=== PATIENT | male | born 1955 | race Caucasian/White ===

== ENCOUNTER 2018-05-05 02:34 | Inpatient (IN) | payer MEDICARE, OTHER ==
[2018-05-05] VITALS (8 sets, daily range): BP systolic 131–141; BP diastolic 69–85; PULSE 80–89; RESP 18–20; Ht 170.2 cm; Wt 90.8 kg
[~2018-05-05] VITALS: Ht 170.2 cm; Wt 90.8 kg
[2018-05-05] MEDS ORDERED: SOD CHLORIDE 0.9% 1,000 ML IV STA (02:40)
[2018-05-05] MEDS ORDERED: TAMS0.4C2 PO (04:36)
[2018-05-05] MEDS ORDERED: ROSU20TA PO (04:36)
[2018-05-05] MEDS ORDERED: OMEP20CA16 PO (04:36)
[2018-05-05] MEDS ORDERED: CHLO25TA18 PO (04:36)
[2018-05-05] MEDS ORDERED: CALC-183 PO (04:36)
[2018-05-05] MEDS ORDERED: CAPE500T13 PO (04:36)
[2018-05-05] MEDS ORDERED: AVAS400I IV (04:36)
[2018-05-05] MEDS ORDERED: PYRI100T2 PO (04:36)
[2018-05-05] MEDS ORDERED: BIOT10005 PO (04:36)
[2018-05-05] MEDS ORDERED: CHOL500010 PO (04:36)
[2018-05-05] MEDS ORDERED: METO-448 PO (04:36)
[2018-05-05] MEDS ORDERED: IRIN300V IV (04:36)
[2018-05-05] MEDS ORDERED: HYDR25TA6 PO (04:36)
[2018-05-05] MEDS ORDERED: LEVO50TA7 PO (04:36)
--- NOTE | 2018-05-05 05:20 | ERD ---
ER Documentation Chief Complaint Chief Complaint BIB [id number],from home,gen severe weakness,hx colon CA stage 4 on chemo HPI This is a 62-year-old male brought in by rescue from home with complaints of generalized lower extremity and upper extremity weakness. Denies focal weakness. Patient is a stage IV colon cancer patient currently on chemotherapy. He states that he earlier today he got up to go to the restroom he suddenly fell he was unable to get up. He denies any bowel or bladder incontinence. Denies any other current issues. Patient is on chemo from what it seems like for palliative reasons only ROS All systems reviewed and are negative except as per history of present illness. Medications Home Meds Reported Medications Levothyroxine Sodium* (Levothyroxine Sodium*) 50 Mcg Tablet, 50 MCG PO BEFORE BREAKFAST, #30 TAB 05/05/18 Biotin (Biotin) 10,000 Mcg Capsule, 92264 MCG PO DAILY, CAP 05/05/18 Calcium Carb/D3/Magnesium/Zinc (Avksigv-Zis-Kzbe-Vit D Tablet) 1 Each Tablet, 1 EACH PO DAILY, TAB 05/05/18 Rosuvastatin Calcium* (Crestor*) 20 Mg Tablet, 20 MG PO QHS, #30 TAB 05/05/18 Omeprazole* (Omeprazole*) 20 Mg Capsule.dr, 20 MG PO DAILY, #30 CAP 05/05/18 Cholecalciferol (Vitamin D3) 5,000 Unit Tablet, 5000 UNIT PO DAILY, TAB 05/05/18 Hydrochlorothiazide* (Hydrochlorothiazide*) 25 Mg Tab, 25 MG PO DAILY, #30 TAB 05/05/18 Pyridoxine Hcl* (Vitamin B-6*) 100 Mg Tablet, 100 MG PO DAILY, TAB 05/05/18 Metoprolol Tartrate* (Lopressor*) 25 Mg Tab, 25 MG PO BID, #60 TAB 05/05/18 Capecitabine (Capecitabine) 500 Mg Tablet, 500 MG PO DAILY, TAB TAKE 3 TABLETS (1500MG) BY MOUTH IN THE MORNIING AND 2 TABLETS (1000MG) IN THE EVENING DAILY FROM FRIDAY TO FRIDAY. 05/05/18 Irinotecan Hcl (CAMPTOSAR) Unknown Strength Vial, IV, VIAL 05/05/18 Bevacizumab* (Avastin*) 25 Mg/Ml Soln, 400 MG IV, EA 05/05/18 Tamsulosin Hcl* (Tamsulosin Hcl*) 0.4 Mg Cap.er.24h, 0.4 MG PO HS, CAP 05/05/18 Chlorpromazine Hcl* (Chlorpromazine Hcl*) 25 Mg Tablet, 25 MG PO TID, TAB 05/05/18 Allergies Allergies: Coded Allergies: No Known Allergy (Unverified , 05/05/18) PMhx/Soc History of Surgery: Yes (HERNIA 2014, COLON 2015, BRAIN TUMOR 2015) Anesthesia Reaction: No Hx Neurological Disorder: No Hx Respiratory Disorders: No Hx Cardiac Disorders: Yes (HTN, HYPERLIPIDEMIA ) Hx Psychiatric Problems: No Hx Miscellaneous Medical Probl: Yes (COLON CANCER, GERD, HYPOTHYROID, ENLARGED PROSTATE ) Hx Alcohol Use: No Hx Substance Use: No Hx Tobacco Use: No Smoking Status: Never smoker Physical Exam Vitals Vital Signs Date Temp Pulse Resp B/P (MAP) Pulse Ox O2 O2 Flow FiO2 Time Delivery Rate 05/05/18 99.9 81 14 133/82 100 Room Air 03:52 (99) 05/05/18 98.2 89 18 124/76 97 02:38 (92) Physical Exam Const: No acute distress Head: Atraumatic Eyes: Normal Conjunctiva ENT: Normal External Ears, Nose and Mouth. Neck: Full range of motion. No meningismus. Resp: Clear to auscultation bilaterally Cardio: Regular rate and rhythm, no murmurs Abd: Soft, non tender, non distended. Normal bowel sounds Skin: No petechiae or rashes Back: No midline or flank tenderness Ext: No cyanosis, or edema Neur: Awake and alert Psych: Normal Mood and Affect Result Diagram: 05/05/18 0316 05/05/18 0316 Results 24 hrs Laboratory Tests Test 05/05/18 03:16 White Blood Count 4.6 10^3/ul Red Blood Count 3.84 10^6/ul Hemoglobin 12.9 g/dl Hematocrit 36.3 % Mean Corpuscular Volume 94.5 fl Mean Corpuscular Hemoglobin 33.6 pg Mean Corpuscular Hemoglobin Concent 35.5 g/dl Red Cell Distribution Width 15.8 % Platelet Count 63 10^3/UL Mean Platelet Volume 10.7 fl Immature Granulocytes % 1.100 % Neutrophils % 87.7 % Lymphocytes % 6.8 % Monocytes % 4.4 % Eosinophils % 0.0 % Basophils % 0.0 % Nucleated Red Blood Cells % 0.0 /100WBC Immature Granulocytes # 0.050 10^3/ul Neutrophils # 4.0 10^3/ul Lymphocytes # 0.3 10^3/ul Monocytes # 0.2 10^3/ul Eosinophils # 0.0 10^3/ul Basophils # 0.0 10^3/ul Nucleated Red Blood Cells # 0.0 10^3/ul Prothrombin Time 14.0 Sec Prothrombin Time Ratio 1.1 INR International Normalized Ratio 1.07 Activated Partial Thromboplast Time 24.5 Sec Sodium Level 133 mmol/L Potassium Level 4.9 mmol/L Chloride Level 97 mmol/L Carbon Dioxide Level 23 mmol/L Anion Gap 13 Blood Urea Nitrogen 20 mg/dl Creatinine 1.01 mg/dl Est Glomerular Filtrat Rate mL/min > 60 mL/min Glucose Level 128 mg/dl Calcium Level 9.1 mg/dl Troponin I < 0.012 ng/ml Current Medications Medications Dose Sig/Jeovany Start Time Status Last (Trade) Ordered Route PRN Stop Time Admin Dose Reason Admin Sodium 1,000 ml @ Q1H STAT 05/05/18 DC 05/05/18 Chloride 1,000 mls/hr IV 02:40 05/05/18 03:54 03:39 Procedures/MDM EKG: Rate/Rhythm: [Normal Sinus Rhythm] QRS, ST, T-waves: [No changes consistent w/ acute ischemia] Impression: [No evidence of ischemia or arrhythmia] Chest X-ray 1V Interpreted by me: Soft Tissue: No acute abnormalities Bones: No acute abnormalities Mediastinum/Cardiac Silhouette/Lungs: [No acute abnormalities] Medical decision makin-year-old male with generalized weakness. Given his debility, patient will be admitted to the hospitalist group for further evaluation and management. Departure Diagnosis: Primary Impression: Acute weakness Condition: Stable ROSS NOEL May 05, 2018 05:20
[2018-05-05] MEDS: SOD CHLORIDE 0.9% 1,000 ML IV SCH ×2 (05:38→16:44)
[2018-05-05] MEDS ORDERED: DOCUSATE SODIUM 100 MG CAP PO PRN (06:00)
[2018-05-05] MEDS ORDERED: NACL 0.9% 3 ML SYG IV SCH (06:00)
[2018-05-05] MEDS ORDERED: BISACODYL (EC) 5 MG TAB PO PRN (06:00)
[2018-05-05] MEDS: ACETAMINOPHEN 325 MG TAB PO PRN ×3 (06:21→21:42)
[2018-05-05] MEDS: PANTOPRAZOLE (EC) 40 MG TAB PO SCH (06:21)
--- NOTE | 2018-05-05 06:33 | HP ---
Date/Time of Note Date/Time of Note DATE: 05/05/18 TIME: 06:24 Assessment/Plan VTE Prophylaxis SCD applied (from Nsg): Yes Pharmacological prophylaxis: NA/contraindicated Pharm contraindication: thrombocytopenia Lines/Catheters IV Catheter Type (from Nrsg): Saline Lock Assessment/Plan Hospital Course This is a 62-year-old male being admitted to the telemetry floor for: #1 Sirs syndrome: Source unknown at the current time possibly secondary to pneumonia versus UTI versus other. Chest x-ray showed questionable interstitial prominence. Will check stat blood cultures x2, urinalysis and urine culture. Will order lactic acid level. Start patient on vancomycin and Zosyn (in immunocompromised patient) after cultures. Patient denies any cough. He does report that it has been difficult for him to urinate today. #2 left-sided facial droop with weakness: Rule out CVA versus infection versus medication effect. CT of the head does not show any acute abnormalities aside from old infarct and encephalomalacia. Patient does report on and off headaches. Will check an MRI of the brain to further evaluate. Treatment for possible underlying infection is already been initiated as per #1. As the neurological symptoms started greater than 48 hours ago no need for any permissive hypertension at the current time. #3 colon cancer stage IV with metastases to liver and brain: Patient has outpatient oncologist [facility]. Dr. Singh. Currently on a Avastin capecitabine and irinotecan. Will hold current treatment at the current time. Will consult hematology for further guidance. #4 hypertension: We will hold patient home blood pressure medication at the c urrent time initiate as indicated #5 abnormal chest x-ray: This could be pneumonia versus fluid. Will check an echocardiogram as well to assess heart morphology #6 hyperlipidemia: Resume statin #7 BPH: Continue Flomax #8 thrombocytopenia: Secondary likely to underlying cancer. SCDs at the current time will hold off on any anticoagulation. #9 hypothyroidism: We will check TSH, continue levothyroxine #10 DVT GI prophylaxis: SCDs, no GI prophylaxis indicated #11 CODE STATUS: Patient currently a full code. I did discuss CODE STATUS with the family and they will discuss this further with the patient. I did reiterate to them that being a DNR/DNI would be appropriate, the family will decide on this. Will consult Dr. Greenwood. Further treatment strategy will be implemented as per the clinical course. Result Diagram: 05/05/18 0316 05/05/18 0316 Results 24hrs Laboratory Tests Test 05/05/18 03:16 White Blood Count 4.6 L Red Blood Count 3.84 L Hemoglobin 12.9 L Hematocrit 36.3 L Mean Corpuscular Volume 94.5 Mean Corpuscular Hemoglobin 33.6 H Mean Corpuscular Hemoglobin Concent 35.5 Red Cell Distribution Width 15.8 H Platelet Count 63 L Mean Platelet Volume 10.7 H Immature Granulocytes % 1.100 H Neutrophils % 87.7 H Lymphocytes % 6.8 L Monocytes % 4.4 Eosinophils % 0.0 Basophils % 0.0 Nucleated Red Blood Cells % 0.0 Immature Granulocytes # 0.050 H Neutrophils # 4.0 Lymphocytes # 0.3 L Monocytes # 0.2 L Eosinophils # 0.0 Basophils # 0.0 Nucleated Red Blood Cells # 0.0 Prothrombin Time 14.0 Prothrombin Time Ratio 1.1 INR International Normalized Ratio 1.07 Activated Partial Thromboplast Time 24.5 Sodium Level 133 L Potassium Level 4.9 Chloride Level 97 Carbon Dioxide Level 23 Anion Gap 13 Blood Urea Nitrogen 20 Creatinine 1.01 Est Glomerular Filtrat Rate mL/min > 60 Glucose Level 128 Calcium Level 9.1 Troponin I < 0.012 HPI/ROS Admit Date/Time Admit Date/Time Hx of Present Illness Chief complaint: Unsteady gait, weakness This is a 62-year-old male with stage IV colon cancer with a history of metastasis to the liver and the brain who presents to [facility] via ambulance with complaints of weakness times 3 days. Patient is accompanied by his sister as well as his niece. As per the family they state that the patient was noted on Friday at approximately 2030 to be limping at home while he was ambulating. He also was complaining of a headache. Then today the patient was noted to be on the floor at home. He denied falling down or hitting his head according to the family. Family though was concerned so they called 911. Patient has been receiving chemotherapy for his colon cancer [facility] through his oncologist Dr. Dunn. He is currently on capecitabine, Avastin and Irontecan. During my examination of the patient he reported feeling hot a temperature was checked during my examination temperature was rechecked and a temperature of 103 was noted. Allergies: NKDA Medications: See MAY . ROS Const: As per HPI Eyes : No pain discharge or redness or change in visual acuity ENT: No pain, sore throat, congestion, congestion, dysphagia or discharge Respiratory: No shortness of breath, cough, sputum, wheezing, or pleuritic pain Cardiovascular: No chest pain, palpitation, PND, or edema GI : no change in appetite, abdominal pain, nausea, vomiting, diarrhea, constipation, or change in the color his stool Genitourinary: No dysuria, hematuria, flank pain , discharge or CVA tenderness Musculoskeletal: No joint pain, back pain, neck pain, restricted range of motion in neck or joints Skin: No rash, bruising or hives Neuro: As per HPI Endocrine: No polyuria, polydipsia, temperature intolerance Psych: No hallucination, depression, anxiety or suicidal ideation PMH/Family/Social Past Medical History Stage IV colon cancer with metastases to the brain and the liver, hypertension, hyperlipidemia, BPH, hypothyroidism Medications Current Medications Chlorpromazine (Thorazine) 25 mg TID PO ; Start 05/05/18 at 09:00 Levothyroxine Sodium (Synthroid) 50 mcg BEFORE BREAKFAST PO ; Start 05/05/18 at 07:00 Pyridoxine HCl (Vitamin B6) 100 mg DAILY PO ; Start 05/05/18 at 09:00 Calcium/Vitamin D (Oyster Shell/ Vit-D (500/200)) 1 tab DAILY PO ; Start 05/05/18 at 09:00 Pantoprazole (Protonix Tab) 40 mg DAILY@06 PO ; Start 05/05/18 at 06:21 Atorvastatin Calcium (Lipitor) 80 mg DAILY@21 PO ; Start 05/05/18 at 21:00 Sodium Chloride 1,000 ml @ 75 mls/hr [id number] IV ; Start 05/05/18 at 05:38 IV Flush (NS 3 ml) 3 ml PER PROTOCOL IV ; Start 05/05/18 at 06:00 Ondansetron HCl (Zofran Inj) 4 mg Q6H PRN IV NAUSEA/VOMITING; Start 05/05/18 at 06:00 Acetaminophen (Tylenol Tab) 650 mg Q6H PRN PO .PAIN 1-3 OR TEMP Last admini stered on 05/05/18at 06:21; Admin Dose 650 MG; Start 05/05/18 at 06:00 Docusate Sodium (Colace) 100 mg Q12H PRN PO .CONSTIPATION; Start 05/05/18 at 06:00 Bisacodyl (Dulcolax) 5 mg DAILY PRN PO .CONSTIPATION; Start 05/05/18 at 06:00 Tamsulosin HCl (Flomax) 0.4 mg HS PO ; Start 05/05/18 at 21:00 Coded Allergies: No Known Allergy (Unverified , 05/05/18) Past Surgical History Left craniectomy, colon surgery, hernia surgery, left chest Port-A-Cath Family History Significant Family History: cancer (Sister breast cancer, mother colon cancer) Social History Social drinker in the past Smoking Status: Never smoker Drug Use: none Exam/Review of Systems Vital Signs Vitals Vital Signs Date Temp Pulse Resp B/P (MAP) Pulse Ox O2 O2 Flow FiO2 Time Delivery Rate 05/05/18 103.0 06:21 05/05/18 84 16 138/76 100 Room Air 06:17 (96) Exam Exam General: Patient is a pleasant male currently lying in bed he does not appear to be in any acute distress, he does appear to be lethargic with HEENT: Atraumatic, normocephalic. The pupils are equal, round and reactive. Extraocular motor are intact Neck: Supple with full range of motion. No rigidity or meningismus Chest: Left chest Port-A-Cath Lungs: Clear to auscultation bilaterally no crackles rales or wheezing Heart: Normal S1-S2, Regular rhythm and rate. No murmur, S3, or S4 Abdomen: Soft , nontender, nondistended , bowel sounds are present. No guarding no rebound tenderness , No masses or organomegaly. No costovertebral temporal angle mass Extremities: Normal to inspection, no edema no cyanosis Neurologic: Normal mental status, speech normal, left-sided facial droop and eyelid drooping, strength 4 out of 5 in bilateral upper and lower extremities. Gait not assessed secondary to weakness Additional Comments PROCEDURE: CT Brain without contrast. CLINICAL INDICATION: Headache. TECHNIQUE: CT scan of the brain was performed on a multidetector high- resolution CT scan. Axial imaging was obtained of the brain without contrast administration. Coronal and sagittal reformatted images were obtained from the axial source images. Standard CT scan of the head without contrast protocols were performed. The total exam CTDI equals 39.3 mGy and the total exam DLP equals 1427.02 mGy- cm. One or more of the following dose reduction techniques were used: - Automated exposure control. - Adjustment of the mA and/or kV according to patient size. Use of iterative reconstruction technique. Dicom images are available COMPARISON: None FINDINGS: Motion artifact degrading optimal evaluation. Status post left occipital craniotomy with fixation that appears unremarkable. No acute osseous findings. Mild mucosal thickening left maxillary sinus. Remainder of the visualized paranasal sinuses are unremarkable. No air-fluid levels within the paranasal sinuses. Mastoids unremarkable. 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 The ventricular system and peripheral CSF spaces are proportionate prominent consistent with mild generalized cerebral volume loss. Moderate periventricular deep white matter changes consistent with chronic microvascular ischemic disease. No evidence of intracranial masses hemorrhages or midline shift. The remaining sharma-white matter differentiation is unremarkable. IMPRESSION: 1. Motion artifact degrading optimal evaluation. 2. Status post left occipital craniotomy with unremarkable fixation. 3. 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 4. Mild generalized cerebral volume loss and moderate nonspecific chronic microvascular ischemic disease. RPTAT:AAJJ Physician Jada Date Time Electronically viewed and signed by Physician Jada on 05/05/2018 04:02 BM/ CC: ROSS NOEL [id number] PROCEDURE: Single view chest. CLINICAL INDICATION: Headache TECHNIQUE: Single view of the chest was obtained COMPARISON: None FINDINGS: Left-sided port with tip positioned at mid SVC. Mild interstitial prominence without confluent air space consolidation or focal infiltrate. There is no evidence of an effusion. Cardiac silhouette and mediastinal contours are unremarkable. Minor degenerative spurring throughout the thoracic spine and remote fracture deformity of the left clavicle. IMPRESSION: Mild interstitial prominence compatible with fluid overload or trace edema. RPTAT: HJBB Physician Car Date Time Electronically viewed and signed by Kenneth Ashley Physician on 05/05/2018 03:30 xB/ CC: ROSS NOEL [id number] MARIS BECK May 05, 2018 06:33
[2018-05-05] MEDS ORDERED: VANCOMYCIN IV PER PHARMACY XX SCH (07:00)
[2018-05-05] MEDS: PIPER-TAZO 3.375 GM IV (PMX) 100 ML IVPB SCH ×3 (08:00→17:29)
[2018-05-05] MEDS ORDERED: BIOTIN 10000 MCG PO SCH (09:00)
[2018-05-05] MEDS ORDERED: VANCOMYCIN HCL 1.75 GM in SOD CHLORIDE 0.9% 500 ML IVPB SCH (09:00)
[2018-05-05] MEDS ORDERED: HEPARIN 5,000 UNIT/1 ML VIAL SC SCH (09:00)
[2018-05-05] MEDS: LEVOTHYROXINE 50 MCG TAB PO SCH (10:02)
[2018-05-05] MEDS: CALCIUM/VITAMIN D (500/200) TAB PO SCH (10:02)
[2018-05-05] MEDS: CHLORPROMAZINE 25 MG TAB PO SCH ×3 (11:20→21:43)
[2018-05-05] MEDS: PYRIDOXINE 50 MG TAB PO SCH (11:20)
--- NOTE | 2018-05-05 12:33 | CONDCODE ---
Medicare Criteria-> INP to OBS Patient still in hospital: Yes SI/IS Criteria met: Yes Attending MD agrees w/change: Yes Order entered in Pt. record: Yes Pt. does not meet Inp Criteria: Yes Medicare Inp->Obs Criteria met: Yes UR Phys Advisor eSign required: Yes I personally scribed for TAHIR MCBRIDE (DENI) on 05/05/18 at 12:33. Electronically submitted by Basilia Tai ([facility] TAHIR MCBRIDE May 05, 2018 12:33
--- NOTE | 2018-05-05 12:33 | CONDCODE ---
Medicare Criteria-> INP to OBS Patient still in hospital: Yes SI/IS Criteria met: Yes Attending MD agrees w/change: Yes Order entered in Pt. record: Yes Pt. does not meet Inp Criteria: Yes Medicare Inp->Obs Criteria met: Yes UR Phys Advisor eSign required: Yes I personally scribed for TAHIR MCBRIDE (DENI) on 05/05/18 at 12:33. Electronically submitted by Basilia Tai ([facility] TAHIR MCBRIDE May 05, 2018 12:33
[2018-05-05] MEDS ORDERED: SOD CHLORIDE 0.9% IV ONE (13:30)
--- NOTE | 2018-05-05 14:38 | CONS ---
Assessment/Plan Assessment/Plan Hospital Course (Demo Recall) #STAGE IV Colon Cancer -pt has known mets to brain, liver and lung mets -pt is currently on Xeliri and Avastin and per his oncology notes his disease is stable when PET CT was last checked in Mar 2018 -once patient is discharged, he should get a follow up scan to see if he is still responding to the current therapy -if he has progressed, his primary oncologist may consider Lonsurf vs Stivarga #confusion -pt getting brain MRI now -if he has proven progressive brain mets, will need to see if he is a candidate for any more brain radiation -as stated in HPI is is s/o surgical resection and brain radiation from 2016 #Sepsis -continue IV vancomycin and Zosyn -blood cultures pending Consultation Date/Type/Reason Admit Date/Time 05/05/18 Date of Consultation: May 05, 2018 Type of Consult oncology Reason for Consultation stage IV colon cancer Requesting Provider: MARIS BECK Date/Time of Note DATE: 05/05/18 TIME: 14:30 Hx of Present Illness 62 yo male who was initially diagnosed STAGE IV colon cancer in 2015 which per records involves pulmonary nodules, liver lesions and brain mets. 10/2015 pt underwent neurosurgical resection of brain mass followed by WBXRT 10/2015 pt had resection of primary tumor to prevent further obstruction 05/2015 pt started folfox + Avastin chemotherapy and is currently on Xeliri + Avastin. 03/[address] revealed stable disease 04/30/18 received cycle 3 of Xeliri + Avastin PT now presents to [facility] with 3 days of weakness. He was found on the floor but states he did not fall or hit his head. PT was also noted to be febrile with a temp of 104. 05/05/17 CT Brain non contrast reveals s/p left occipital craniotomy as well as nonspecific chronic microvascular ischemic disease. Pt has since been started on vancomycin and Zosyn. Given he is noted to have a left sided facial droop an MRI of the brain has been ordered Constitutional: diaphoresis, poor po Eyes: no complaints ENT: no complaints Respiratory: shortness of breath Cardiovascular: lightheadedness Gastrointestinal: pain, decreased appetite, nausea Genitourinary: no complaints Musculoskeletal: back pain, bone/joint pain Neurologic: no complaints Endocrine: no complaints Lymphatic: no complaints Past Medical History HTN h/o brain mets GERD h/o gastritis h/o H pylori infection Home Meds Reported Medications Levothyroxine Sodium* (Levothyroxine Sodium*) 50 Mcg Tablet, 50 MCG PO BEFORE BREAKFAST, #30 TAB 05/05/18 Biotin (Biotin) 10,000 Mcg Capsule, 40636 MCG PO DAILY, CAP 05/05/18 Calcium Carb/D3/Magnesium/Zinc (Frhzsgq-Urm-Umwb-Vit D Tablet) 1 Each Tablet, 1 EACH PO DAILY, TAB 05/05/18 Rosuvastatin Calcium* (Crestor*) 20 Mg Tablet, 20 MG PO QHS, #30 TAB 05/05/18 Omeprazole* (Omeprazole*) 20 Mg Capsule.dr, 20 MG PO DAILY, #30 CAP 05/05/18 Cholecalciferol (Vitamin D3) 5,000 Unit Tablet, 5000 UNIT PO DAILY, TAB 05/05/18 Hydrochlorothiazide* (Hydrochlorothiazide*) 25 Mg Tab, 25 MG PO DAILY, #30 TAB 05/05/18 Pyridoxine Hcl* (Vitamin B-6*) 100 Mg Tablet, 100 MG PO DAILY, TAB 05/05/18 Metoprolol Tartrate* (Lopressor*) 25 Mg Tab, 25 MG PO BID, #60 TAB 05/05/18 Capecitabine (Capecitabine) 500 Mg Tablet, 500 MG PO DAILY, TAB TAKE 3 TABLETS (1500MG) BY MOUTH IN THE MORNIING AND 2 TABLETS (1000MG) IN THE EVENING DAILY FROM FRIDAY TO FRIDAY. 05/05/18 Irinotecan Hcl (CAMPTOSAR) Unknown Strength Vial, IV, VIAL 05/05/18 Bevacizumab* (Avastin*) 25 Mg/Ml Soln, 400 MG IV, EA 05/05/18 Tamsulosin Hcl* (Tamsulosin Hcl*) 0.4 Mg Cap.er.24h, 0.4 MG PO HS, CAP 05/05/18 Chlorpromazine Hcl* (Chlorpromazine Hcl*) 25 Mg Tablet, 25 MG PO TID, TAB 05/05/18 Medications Current Medications Chlorpromazine (Thorazine) 25 mg TID PO Last administered on 05/05/18at 13:21; Admin Dose 25 MG; Start 05/05/18 at 09:00 Levothyroxine Sodium (Synthroid) 50 mcg BEFORE BREAKFAST PO Last administered on 05/05/18at 10:02; Admin Dose 50 MCG; Start 05/05/18 at 07:00 Pyridoxine HCl (Vitamin B6) 100 mg DAILY PO Last administered on 05/05/18at 11:20; Admin Dose 100 MG; Start 05/05/18 at 09:00 Calcium/Vitamin D (Oyster Shell/ Vit-D (500/200)) 1 tab DAILY PO Last adm inistered on 05/05/18at 10:02; Admin Dose 1 TAB; Start 05/05/18 at 09:00 Pantoprazole (Protonix Tab) 40 mg DAILY@06 PO Last administered on 05/05/18at 06:21; Admin Dose 40 MG; Start 05/05/18 at 06:21 Atorvastatin Calcium (Lipitor) 80 mg DAILY@21 PO ; Start 05/05/18 at 21:00 Sodium Chloride 1,000 ml @ 75 mls/hr [id number] IV Last administered on 05/05/18at 05:38; Admin Dose 75 MLS/HR; Start 05/05/18 at 05:38 IV Flush (NS 3 ml) 3 ml PER PROTOCOL IV ; Start 05/05/18 at 06:00 Ondansetron HCl (Zofran Inj) 4 mg Q6H PRN IV NAUSEA/VOMITING; Start 05/05/18 at 06:00 Acetaminophen (Tylenol Tab) 650 mg Q6H PRN PO .PAIN 1-3 OR TEMP Last administered on 05/05/18at 12:27; Admin Dose 650 MG; Start 05/05/18 at 06:00 Docusate Sodium (Colace) 100 mg Q12H PRN PO .CONSTIPATION; Start 05/05/18 at 06:00 Bisacodyl (Dulcolax) 5 mg DAILY PRN PO .CONSTIPATION; Start 05/05/18 at 06:00 Tamsulosin HCl (Flomax) 0.4 mg HS PO ; Start 05/05/18 at 21:00 Vancomycin HCl (Vanco Iv Per Pharmacy) VANCOMYCIN PER PHARMACY PER PROTOCOL XX ; Start 05/05/18 at 07:00 Piperacillin Sod/ Tazobactam Sod 100 ml @ 200 mls/hr Q6 IVPB Last administered on 05/05/18at 11:21; Admin Dose 200 MLS/HR; Start 05/05/18 at 07:00 Vancomycin HCl 1.75 gm/Sodium Chloride 500 ml @ 125 mls/hr 0900 IVPB Last administered on 05/05/18at 10:02; Admin Dose 125 MLS/HR; Start 05/05/18 at 09:00; Stop 05/05/18 at 19:00 Vancomycin HCl 250 ml @ 125 mls/hr Q12H IVPB ; Start 05/05/18 at 21:00 Allergies: Coded Allergies: No Known Allergy (Unverified , 05/05/18) Past Surgical History h/o hernia surgery Family History Significant Family History: no pertinent family hx Social History Alcohol Use: none Smoking Status: Never smoker Drug Use: none Exam/Review of Systems Exam Vitals Vital Signs Date Temp Pulse Resp B/P (MAP) Pulse Ox O2 O2 Flow FiO2 Time Delivery Rate 05/05/18 100.7 13:12 05/05/18 80 12:13 05/05/18 138/85 98 11:19 (102) 05/05/18 Room Air 08:13 Constitutional: alert, oriented Psych: no complaints Head: normocephalic Eyes: nl conjunctiva ENMT: nl external ears & nose Neck: supple Respiratory: clear to auscultation Cardiovascular: regular rate and rhythm Gastrointestinal: soft Musculoskeletal: nl extremities to inspection Results Result Diagram: 05/05/18 0316 05/05/18 0316 Results 24hrs Laboratory Tests Test 05/05/18 03:16 05/05/18 07:07 05/05/18 12:15 White Blood Count 4.6 L Red Blood Count 3.84 L Hemoglobin 12.9 L Hematocrit 36.3 L Mean Corpuscular Volume 94.5 Mean Corpuscular Hemoglobin 33.6 H Mean Corpuscular Hemoglobin Concent 35.5 Red Cell Distribution Width 15.8 H Platelet Count 63 L Mean Platelet Volume 10.7 H Immature Granulocytes % 1.100 H Neutrophils % 87.7 H Lymphocytes % 6.8 L Monocytes % 4.4 Eosinophils % 0.0 Basophils % 0.0 Nucleated Red Blood Cells % 0.0 Immature Granulocytes # 0.050 H Neutrophils # 4.0 Lymphocytes # 0.3 L Monocytes # 0.2 L Eosinophils # 0.0 Basophils # 0.0 Nucleated Red Blood Cells # 0.0 Prothrombin Time 14.0 Prothrombin Time Ratio 1.1 INR International Normalized Ratio 1.07 Activated Partial Thromboplast Time 24.5 Sodium Level 133 L Potassium Level 4.9 Chloride Level 97 Carbon Dioxide Level 23 Anion Gap 13 Blood Urea Nitrogen 20 Creatinine 1.01 Est Glomerular Filtrat Rate mL/min > 60 Glucose Level 128 Calcium Level 9.1 Troponin I < 0.012 Lactic Acid Level 2.7 *H 3.7 *H Medications Medication Current Medications Chlorpromazine (Thorazine) 25 mg TID PO Last administered on 05/05/18 13:21; Admin Dose 25 MG; Start 05/05/18 at 09:00 Levothyroxine Sodium (Synthroid) 50 mcg BEFORE BREAKFAST PO Last administered on 05/05/18 10:02; Admin Dose 50 MCG; Start 05/05/18 at 07:00 Pyridoxine HCl (Vitamin B6) 100 mg DAILY PO Last administered on 05/05/18 11:20; Admin Dose 100 MG; Start 05/05/18 at 09:00 Calcium/Vitamin D (Oyster Shell/ Vit-D (500/200)) 1 tab DAILY PO Last adm inistered on 05/05/18 10:02; Admin Dose 1 TAB; Start 05/05/18 at 09:00 Pantoprazole (Protonix Tab) 40 mg DAILY@06 PO Last administered on 05/05/18 06:21; Admin Dose 40 MG; Start 05/05/18 at 06:21 Atorvastatin Calcium (Lipitor) 80 mg DAILY@21 PO ; Start 05/05/18 at 21:00 Sodium Chloride 1,000 ml @ 75 mls/hr [id number] IV Last administered on 05/05/18 05:38; Admin Dose 75 MLS/HR; Start 05/05/18 at 05:38 IV Flush (NS 3 ml) 3 ml PER PROTOCOL IV ; Start 05/05/18 at 06:00 Ondansetron HCl (Zofran Inj) 4 mg Q6H PRN IV NAUSEA/VOMITING; Start 05/05/18 at 06:00 Acetaminophen (Tylenol Tab) 650 mg Q6H PRN PO .PAIN 1-3 OR TEMP Last administered on 05/05/18 12:27; Admin Dose 650 MG; Start 05/05/18 at 06:00 Docusate Sodium (Colace) 100 mg Q12H PRN PO .CONSTIPATION; Start 05/05/18 at 06:00 Bisacodyl (Dulcolax) 5 mg DAILY PRN PO .CONSTIPATION; Start 05/05/18 at 06:00 Tamsulosin HCl (Flomax) 0.4 mg HS PO ; Start 05/05/18 at 21:00 Vancomycin HCl (Vanco Iv Per Pharmacy) VANCOMYCIN PER PHARMACY PER PROTOCOL XX ; Start 05/05/18 at 07:00 Piperacillin Sod/ Tazobactam Sod 100 ml @ 200 mls/hr Q6 IVPB Last administered on 05/05/18at 11:21; Admin Dose 200 MLS/HR; Start 05/05/18 at 07:00 Vancomycin HCl 1.75 gm/Sodium Chloride 500 ml @ 125 mls/hr 0900 IVPB Last administered on 05/05/18at 10:02; Admin Dose 125 MLS/HR; Start 05/05/18 at 09:00; Stop 05/05/18 at 19:00 Vancomycin HCl 250 ml @ 125 mls/hr Q12H IVPB ; Start 05/05/18 at 21:00 CARIDAD GAFFNEY M.D. May 05, 2018 14:38
--- NOTE | 2018-05-05 17:15 | EN ---
Date/Time of Note Date/Time of Note DATE: 05/05/18 TIME: 17:14 Event Note Medicine Medicine Event Note patient evaluated earlier today in followup. plan of care per chart. Continue current regimen. TAHIR MCBRIDE May 05, 2018 17:15
--- NOTE | 2018-05-05 19:55 | RADRPT ---
Echocardiogram Report Patient Name: Danny AYALA ID: [id number] : 1955 (62y 8m)Study Date: 05/05/2018 7:25:11 AM Gender: MAccession #: [id number] Tech: Andrez Viera RDCS Location: [facility] Ref.Physician: MARIS BECK Height(Cm): BSA: Weight(Kg): Quality: AdequateAccount #: Procedures: Echocardiographic Report: Transthoracic echocardiogram with complete 2D, M-Mode, and doppler examination. Indications: near Syncope. Measurements: 2D/M Mode Doppler Measurement Value Normal Range Measurement Value Normal Range LVIDd 2D 4.2 [ 4.2 - 5.8 ] cm AV Peak Travis 1.4 [ 100.0 - 170.0 ] cm/sec LVIDs 2D 2.1 [ 2.5 - 4.0 ] cm AV Peak PG 8.0 [ 2.0 - 9.0 ] mmHg LVPWd 2D 1.1 [ 0.6 - 1.0 ] cm LVOT Peak Travis 0.9 [ 70.0 - 110.0 ] cm/sec IVSd 2D 1.2 [ 0.6 - 1.0 ] cm LVOT Peak PG 4.0 [ 2.0 - 6.0 ] mmHg AoR Diam 2D 3.5 [ 2.6 - 3.4 ] cm MV E Peak Travis 0.6 [ 60.0 - 130.0 ] cm/sec EDV 2D 79.5 [ 62.0 - 150.0 ] ml MV A Peak Travis 0.8 [ 100.0 - 120.0 ] cm/sec ESV 2D 13.9 [ 21.0 - 61.0 ] ml MV E/A 0.8 [ 0.8 - 1.5 ] ratio EF 2D 82.5 [ 52.0 - 72.0 ] percent MV Decel Time 211 [ 104 - 258 ] msec LA Dimen 2D 2.6 [ 3.0 - 4.0 ] cm Lat E` Travis 0.1 [ 10.0 - 15.0 ] cm/sec Lateral E/E` 9.1 [ 1.0 - 2.0 ] ratio MV E/A 0.8 [ 0.8 - 1.5 ] ratio TR Peak Travis 2.5 [ 100.0 - 280.0 ] cm/sec TR Peak PG 25.0 mmHg RVSP 28.0 [ 10.0 - 36.0 ] mmHg RA Pressure 3.0 mmHg Findings: Left Ventricle: Normal left ventricular systolic function. Normal left ventricular cavity size. Mild concentric left ventricular hypertrophy. Ejection fraction is visually estimated at 65 %. Tissue Doppler/Mitral Doppler indices are consistent with impaired relaxation (Stage I diastolic dysfunction). Right Ventricle: Normal right ventricular size. Normal right ventricular systolic function. Left Atrium: The left atrium is normal in size. Right Atrium: The right atrium is normal in size. Mitral Valve: Mitral valve leaflets appear mildly thickened. Mild mitral annular calcification. Trace mitral regurgitation. Aortic Valve: Normal appearance of the aortic valve. No significant aortic stenosis or insufficiency. Tricuspid Valve: Normal appearance of the tricuspid valve. Estimated peak PA systolic pressure 28 mmHg. There is trace tricuspid regurgitation. Pulmonic Valve: Pulmonic valve not well visualized. Pericardium: Normal pericardium with no significant pericardial effusion. Aorta: Normal aortic root. IVC: Normal size and normal respiratory collapse consistent with normal right atrial pressure. Conclusions: Mild concentric left ventricular hypertrophy with normal systolic function. Grade 1 diastolic dysfunction. Trace tricuspid regurgitation and normal pulmonary pressures. Electronically Signed By: Lisa Brambila 2018-05-05 19:54:46 PST
[2018-05-05] MEDS: ATORVASTATIN 80 MG TAB PO SCH (21:42)
[2018-05-05] MEDS: TAMSULOSIN (SR) 0.4 MG CAP PO SCH (21:42)
[2018-05-05] MEDS: VANCOMYCIN 1 GM 250 ML IVPB SCH (21:43)
[2018-05-05] MEDS ORDERED: SOD CHLORIDE 0.9% 100 ML ONE (22:36)
[2018-05-05] MEDS ORDERED: IOHEXOL 300MG/ML 150 ML BTL ONE (22:36)
[2018-05-06] VITALS (12 sets, daily range): BP systolic 110–145; BP diastolic 56–74; PULSE 63–98; RESP 16–20
[2018-05-06] MEDS: ALBUTEROL/IPRATROPIUM (NEB) 3 ML AMP HHN PRN (00:06)
[2018-05-06] MEDS ORDERED: FUROSEMIDE 20 MG INJ IV ONE ×2 (00:30→17:30)
[2018-05-06] MEDS: ACETAMINOPHEN 1000MG/100ML IV 100 ML IVPB SCH ×3 (01:00→13:42)
[2018-05-06] MEDS: PIPER-TAZO 3.375 GM IV (PMX) 100 ML IVPB SCH ×4 (01:38→17:47)
[2018-05-06] MEDS: PANTOPRAZOLE (EC) 40 MG TAB PO SCH (06:47)
[2018-05-06] MEDS: LEVOTHYROXINE 50 MCG TAB PO SCH (06:47)
[2018-05-06] MEDS: PYRIDOXINE 50 MG TAB PO SCH (08:37)
[2018-05-06] MEDS: CHLORPROMAZINE 25 MG TAB PO SCH (08:37)
[2018-05-06] MEDS: CALCIUM/VITAMIN D (500/200) TAB PO SCH (08:38)
[2018-05-06] MEDS: VANCOMYCIN 1 GM 250 ML IVPB SCH ×2 (08:38→21:27)
[2018-05-06] MEDS ORDERED: MAGNESIUM SULFATE 2 GM/50 ML 50 ML IVPB ONE (11:00)
[2018-05-06] MEDS ORDERED: DEXTROSE 5%-0.45% NACL 1,000 ML IV SCH (11:00)
--- NOTE | 2018-05-06 14:28 | CONS ---
Assessment/Plan Assessment/Plan Hospital Course (Demo Recall) #STAGE IV Colon Cancer -pt has known mets to brain, liver and lung mets -pt is currently on Xeliri and Avastin and per his oncology notes his disease is stable when PET CT was last checked in Mar 2018 -once patient is discharged, he should get a follow up scan to see if he is still responding to the current therapy -if he has progressed, his primary oncologist may consider Lonsurf vs Stivarga #confusion -pt getting brain MRI now -if he has proven progressive brain mets, will need to see if he is a candidate for any more brain radiation -as stated in HPI is is s/o surgical resection and brain radiation from 2016 #Sepsis -continue IV vancomycin and Zosyn -blood cultures pending Consultation Date/Type/Reason Admit Date/Time May 05, 2018 at 12:31 Initial Consult Date 05/05/18 Type of Consult oncology Reason for Consultation metastatic colon cancer Requesting Provider: MARIS BECK Date/Time of Note DATE: 05/06/18 TIME: 14:25 24 HR Interval Summary Free Text/Dictation pt had brain MRI done. continues to spike fevers Exam/Review of Systems Exam Vitals Vital Signs Date Temp Pulse Resp B/P (MAP) Pulse Ox O2 O2 Flow FiO2 Time Delivery Rate 05/06/18 102.0 13:42 05/06/18 77 12:37 05/06/18 124/74 97 11:44 (91) 05/06/18 21 00:06 05/05/18 Room Air 08:13 Intake and Output 05/05/18 05/05/18 05/06/18 1515:00 23:00 07:00 IntakeIntake Total 100 ml 1860 ml 100 ml BalanceBalance 100 ml 1860 ml 100 ml Constitutional: alert, oriented Psych: nl mood/affect Head: normocephalic Eyes: nl conjunctiva ENMT: nl external ears & nose, nl nasal mucosa & septum Neck: supple Respiratory: clear to auscultation Gastrointestinal: soft Musculoskeletal: nl extremities to inspection Extremities: normal pulses Results Result Diagram: 05/06/18 0625 05/06/18 1057 Results 24hrs Laboratory Tests Test 05/05/18 17:43 05/06/18 06:24 05/06/18 06:25 05/06/18 10:57 Urine Color YELLOW Urine Clarity CLEAR Urine pH 6.0 Urine Specific [place] 1.021 Urine Ketones NEGATIVE Urine Nitrite NEGATIVE Urine Bilirubin NEGATIVE Urine Urobilinogen 1+ H Urine Leukocyte Esterase NEGATIVE Urine Microscopic RBC 3 Urine Microscopic WBC 1 Urine Hemoglobin NEGATIVE Urine Glucose NEGATIVE Urine Total Protein 2+ H Hemoglobin A1c 5.9 White Blood Count 4.7 L Red Blood Count 3.00 #L Hemoglobin 9.9 #L Hematocrit 27.9 #L Mean Corpuscular Volume 93.0 Mean Corpuscular 33.0 Hemoglobin Mean Corpuscular 35.5 Hemoglobin Concent Red Cell Distribution 15.5 H Width Platelet Count 68 L Mean Platelet Volume 12.0 H Immature Granulocytes % 1.700 H Neutrophils % Segmented Neutrophils 79 H % (Manual) Band Neutrophils % 1 (Manual) Lymphocytes % Lymphocytes % (Manual) 8 L Monocytes % Monocytes % (Manual) 12 H Nucleated Red Blood 0.0 Cells % Immature Granulocytes # 0.080 H Neutrophils # Neutrophils # (Manual) 3.7 Band Neutrophils # 0.0 Lymphocytes (Manual) 0.3 L Lymphocytes # Monocytes # Monocytes # (Manual) 0.5 Platelet Estimate DECREASED Poikilocytosis 1+ Anisocytosis 1+ Macrocytosis 1+ Sodium Level 126 L 125 L Potassium Level 3.7 3.7 Chloride Level 97 98 Carbon Dioxide Level 21 19 L Anion Gap 8 8 Blood Urea Nitrogen 16 17 Creatinine 0.93 0.91 Est Glomerular Filtrat > 60 > 60 Rate mL/min Glucose Level 122 122 Calcium Level 8.0 L 8.0 L Magnesium Level 1.7 Total Bilirubin 0.8 Direct Bilirubin 0.00 Indirect Bilirubin 0.8 Aspartate Amino 36 Transf (AST/SGOT) Alanine 28 Aminotransferase (ALT/SG PT) Alkaline Phosphatase 71 Total Protein 5.3 L Albumin 2.8 L Globulin 2.50 Albumin/Globulin Ratio 1.12 Thyroid Stimulating 1.400 Hormone (TSH) Lactic Acid Level 2.7 *H Medications Medication Current Medications Levothyroxine Sodium (Synthroid) 50 mcg BEFORE BREAKFAST PO Last administered on 05/06/18at 06:47; Admin Dose 50 MCG; Start 05/05/18 at 07:00 Pyridoxine HCl (Vitamin B6) 100 mg DAILY PO Last administered on 05/06/18at 08:37; Admin Dose 100 MG; Start 05/05/18 at 09:00 Calcium/Vitamin D (Oyster Shell/ Vit-D (500/200)) 1 tab DAILY PO Last administered on 05/06/18 08:38; Admin Dose 1 TAB; Start 05/05/18 at 09:00 Pantoprazole (Protonix Tab) 40 mg DAILY@06 PO Last administered on 05/06/18 06:47; Admin Dose 40 MG; Start 05/05/18 at 06:21 Atorvastatin Calcium (Lipitor) 80 mg DAILY@21 PO Last administered on 05/05/18 21:42; Admin Dose 80 MG; Start 05/05/18 at 21:00 Sodium Chloride 1,000 ml @ 75 mls/hr [id number] IV Last administered on 05/05/18 05:38; Admin Dose 75 MLS/HR; Start 05/05/18 at 05:38; Status Hold IV Flush (NS 3 ml) 3 ml PER PROTOCOL IV ; Start 05/05/18 at 06:00 Ondansetron HCl (Zofran Inj) 4 mg Q6H PRN IV NAUSEA/VOMITING; Start 05/05/18 at 06:00 Acetaminophen (Tylenol Tab) 650 mg Q6H PRN PO .PAIN 1-3 OR TEMP Last administered on 05/05/18 21:42; Admin Dose 650 MG; Start 05/05/18 at 06:00; Status Hold Docusate Sodium (Colace) 100 mg Q12H PRN PO .CONSTIPATION; Start 05/05/18 at 06:00 Bisacodyl (Dulcolax) 5 mg DAILY PRN PO .CONSTIPATION; Start 05/05/18 at 06:00 Tamsulosin HCl (Flomax) 0.4 mg HS PO Last administered on 05/05/18 21:42; Admin Dose 0.4 MG; Start 05/05/18 at 21:00 Vancomycin HCl (Vanco Iv Per Pharmacy) VANCOMYCIN PER PHARMACY PER PROTOCOL XX ; Start 05/05/18 at 07:00 Piperacillin Sod/ Tazobactam Sod 100 ml @ 200 mls/hr Q6 IVPB Last administered on 05/06/18 11:01; Admin Dose 200 MLS/HR; Start 05/05/18 at 07:00 Vancomycin HCl 250 ml @ 125 mls/hr Q12H IVPB Last administered on 05/06/18 08:38; Admin Dose 125 MLS/HR; Start 05/05/18 at 21:00 Albuterol/ Ipratropium (Duoneb) 3 ml Q4H RESP THERAPY PRN HHN SHORTNESS OF BREATH Last administered on 05/06/18at 00:06; Admin Dose 3 ML; Start 05/05/18 at 22:30 Acetaminophen 100 ml @ 400 mls/hr Q6H IVPB Last administered on 05/06/18at 13:42; Admin Dose 400 MLS/HR; Start 05/06/18 at 01:00; Stop 05/07/18 at 00:59 Dextrose/Sodium Chloride 1,000 ml @ 50 mls/hr Q20H IV Last administered on 05/06/18at 11:46; Admin Dose 50 MLS/HR; Start 05/06/18 at 11:00 CARIDAD GAFFNEY M.D. May 06, 2018 14:28
--- NOTE | 2018-05-06 15:41 | PN ---
Date/Time of Note Date/Time of Note DATE: 05/06/18 TIME: 15:19 Assessment/Plan VTE Prophylaxis Risk score (from Ns)>0 risk: 11 SCD applied (from Ns): Yes Pharmacological prophylaxis: NA/contraindicated Pharm contraindication: thrombocytopenia Lines/Catheters IV C[facility]ter Type (from [facility] Peripheral IV Urinary Cath still in place: Yes Reason Cath still needed: other (indicate) Assessment/Plan Hospital Course Subjective: got thorazine again overnight for hiccups and remains very sleepy and lethargic, not eating -few beats of VTach overnight -having a lot of chills Objective: Constitutional: somnolent, will barely open eyes to stimulation. per family was able to eat a few spoons this am Head: atraumatic, normocephalic Neck: non-tender, supple Respiratory: diminished ++ Cardiovascular: regular rate and rhythm Gastrointestinal: S/ NT / ND / +BS Extremities: no edema, good radial pulses assessment and Plan: 1. Neutropenic fevers -likely sepsis 2/2 obstructive PNA? CT showing bronchiectasis and interstitial pneumonitis -blood and urine cultures remain negative -still having chills -continue abx and repeat blood cultures, ID consult 2. Acute encephalopathy -patient has been having some minor forgetfullness and gait issues prior to admit, but now is barely responsive -may be 2/2 meds (thorazine) versus brain mets vs hyponatremia vs disease progression (s/p full brain radiation 2015) vs sepsis -f/u MRI, continue abx , correct hyponatremia and reevaluate 3. Metastatic colon ca with brain, lungs and liver mets -s/p partial colon resection / surgical tumor removal in the brain / whole brain radiation 2015 / ongoing chemo -PET scan and MRI showed stable disease -chest CT here shows no mets. ?? -all chemo on hold now re :#1 -last chemo med given about 4 days prior to admit 4. Pancytopenia -from chemo? patient was on injections outpt per family. -oncology following, defer to them for mgt 5. Hyponatremia -UO not tracked as patient is incontinent -pass rosales, check urine sodium -one dose frusemide given already -patient NPO 2/2 mental status, gentle fluid hydration 6. 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 but family yet to make a decision on code status -continue tele supportive care Result Diagram: 05/06/18 0625 05/06/18 1057 Results 24hrs Laboratory Tests Test 05/05/18 17:43 05/06/18 06:24 05/06/18 06:25 05/06/18 10:57 Urine Color YELLOW Urine Clarity CLEAR Urine pH 6.0 Urine Specific [place] 1.021 Urine Ketones NEGATIVE Urine Nitrite NEGATIVE Urine Bilirubin NEGATIVE Urine Urobilinogen 1+ H Urine Leukocyte Esterase NEGATIVE Urine Microscopic RBC 3 Urine Microscopic WBC 1 Urine Hemoglobin NEGATIVE Urine Glucose NEGATIVE Urine Total Protein 2+ H Hemoglobin A1c 5.9 White Blood Count 4.7 L Red Blood Count 3.00 #L Hemoglobin 9.9 #L Hematocrit 27.9 #L Mean Corpuscular Volume 93.0 Mean Corpuscular 33.0 Hemoglobin Mean Corpuscular 35.5 Hemoglobin Concent Red Cell Distribution 15.5 H Width Platelet Count 68 L Mean Platelet Volume 12.0 H Immature Granulocytes % 1.700 H Neutrophils % Segmented Neutrophils 79 H % (Manual) Band Neutrophils % 1 (Manual) Lymphocytes % Lymphocytes % (Manual) 8 L Monocytes % Monocytes % (Manual) 12 H Nucleated Red Blood 0.0 Cells % Immature Granulocytes # 0.080 H Neutrophils # Neutrophils # (Manual) 3.7 Band Neutrophils # 0.0 Lymphocytes (Manual) 0.3 L Lymphocytes # Monocytes # Monocytes # (Manual) 0.5 Platelet Estimate DECREASED Poikilocytosis 1+ Anisocytosis 1+ Macrocytosis 1+ Sodium Level 126 L 125 L Potassium Level 3.7 3.7 Chloride Level 97 98 Carbon Dioxide Level 21 19 L Anion Gap 8 8 Blood Urea Nitrogen 16 17 Creatinine 0.93 0.91 Est Glomerular Filtrat > 60 > 60 Rate mL/min Glucose Level 122 122 Calcium Level 8.0 L 8.0 L Magnesium Level 1.7 Total Bilirubin 0.8 Direct Bilirubin 0.00 Indirect Bilirubin 0.8 Aspartate Amino 36 Transf (AST/SGOT) Alanine 28 Aminotransferase (ALT/SG PT) Alkaline Phosphatase 71 Total Protein 5.3 L Albumin 2.8 L Globulin 2.50 Albumin/Globulin Ratio 1.12 Thyroid Stimulating 1.400 Hormone (TSH) Lactic Acid Level 2.7 *H Exam/Review of Systems Exam Vitals Vital Signs Date Temp Pulse Resp B/P (MAP) Pulse Ox O2 O2 Flow FiO2 Time Delivery Rate 05/06/18 100.2 14:27 05/06/18 77 12:37 05/06/18 19 124/74 97 11:44 (91) 05/06/18 21 00:06 05/05/18 Room Air 08:13 Intake and Output 05/05/18 05/05/18 05/06/18 1414:59 22:59 06:59 IntakeIntake Total 100 ml 1860 ml 100 ml BalanceBalance 100 ml 1860 ml 100 ml Results Results 24hrs Laboratory Tests Test 05/05/18 17:43 05/06/18 06:24 05/06/18 06:25 05/06/18 10:57 Urine Color YELLOW Urine Clarity CLEAR Urine pH 6.0 Urine Specific [place] 1.021 Urine Ketones NEGATIVE Urine Nitrite NEGATIVE Urine Bilirubin NEGATIVE Urine Urobilinogen 1+ H Urine Leukocyte Esterase NEGATIVE Urine Microscopic RBC 3 Urine Microscopic WBC 1 Urine Hemoglobin NEGATIVE Urine Glucose NEGATIVE Urine Total Protein 2+ H Hemoglobin A1c 5.9 White Blood Count 4.7 L Red Blood Count 3.00 #L Hemoglobin 9.9 #L Hematocrit 27.9 #L Mean Corpuscular Volume 93.0 Mean Corpuscular 33.0 Hemoglobin Mean Corpuscular 35.5 Hemoglobin Concent Red Cell Distribution 15.5 H Width Platelet Count 68 L Mean Platelet Volume 12.0 H Immature Granulocytes % 1.700 H Neutrophils % Segmented Neutrophils 79 H % (Manual) Band Neutrophils % 1 (Manual) Lymphocytes % Lymphocytes % (Manual) 8 L Monocytes % Monocytes % (Manual) 12 H Nucleated Red Blood 0.0 Cells % Immature Granulocytes # 0.080 H Neutrophils # Neutrophils # (Manual) 3.7 Band Neutrophils # 0.0 Lymphocytes (Manual) 0.3 L Lymphocytes # Monocytes # Monocytes # (Manual) 0.5 Platelet Estimate DECREASED Poikilocytosis 1+ Anisocytosis 1+ Macrocytosis 1+ Sodium Level 126 L 125 L Potassium Level 3.7 3.7 Chloride Level 97 98 Carbon Dioxide Level 21 19 L Anion Gap 8 8 Blood Urea Nitrogen 16 17 Creatinine 0.93 0.91 Est Glomerular Filtrat > 60 > 60 Rate mL/min Glucose Level 122 122 Calcium Level 8.0 L 8.0 L Magnesium Level 1.7 Total Bilirubin 0.8 Direct Bilirubin 0.00 Indirect Bilirubin 0.8 Aspartate Amino 36 Transf (AST/SGOT) Alanine 28 Aminotransferase (ALT/SG PT) Alkaline Phosphatase 71 Total Protein 5.3 L Albumin 2.8 L Globulin 2.50 Albumin/Globulin Ratio 1.12 Thyroid Stimulating 1.400 Hormone (TSH) Lactic Acid Level 2.7 *H Imaging Imaging CT 05/05/18 IMPRESSION: 1. Mild pulmonary emphysema. 2. Areas of interstitial thickening and traction bronchiectasis are seen in the lung periphery bilaterally, concerning for mild underlying interstitial pneumonitis/fibrosis. 3. Coronary arterial and aortic atherosclerotic calcifications. 4. No evidence of mass, lymphadenopathy, or acute infiltrate. 5. Left side Port-A-Cath is in place. 6. Mild hiatal hernia. 7. Status post partial right colon resection. 8. Splenomegaly (16 cm Medications Medication Current Medications Levothyroxine Sodium (Synthroid) 50 mcg BEFORE BREAKFAST PO Last administered on 05/06/18 06:47; Admin Dose 50 MCG; Start 05/05/18 at 07:00 Pyridoxine HCl (Vitamin B6) 100 mg DAILY PO Last administered on 05/06/18 08:37; Admin Dose 100 MG; Start 05/05/18 at 09:00 Calcium/Vitamin D (Oyster Shell/ Vit-D (500/200)) 1 tab DAILY PO Last a dministered on 05/06/18 08:38; Admin Dose 1 TAB; Start 05/05/18 at 09:00 Pantoprazole (Protonix Tab) 40 mg DAILY@06 PO Last administered on 05/06/18 06:47; Admin Dose 40 MG; Start 05/05/18 at 06:21 Atorvastatin Calcium (Lipitor) 80 mg DAILY@21 PO Last administered on 05/05/18 21:42; Admin Dose 80 MG; Start 05/05/18 at 21:00 Sodium Chloride 1,000 ml @ 75 mls/hr [id number] IV Last administered on 05/05/18 05:38; Admin Dose 75 MLS/HR; Start 05/05/18 at 05:38; Status Hold IV Flush (NS 3 ml) 3 ml PER PROTOCOL IV ; Start 05/05/18 at 06:00 Ondansetron HCl (Zofran Inj) 4 mg Q6H PRN IV NAUSEA/VOMITING; Start 05/05/18 at 06:00 Acetaminophen (Tylenol Tab) 650 mg Q6H PRN PO .PAIN 1-3 OR TEMP Last administ ered on 05/05/18at 21:42; Admin Dose 650 MG; Start 05/05/18 at 06:00; Status Hold Docusate Sodium (Colace) 100 mg Q12H PRN PO .CONSTIPATION; Start 05/05/18 at 06:00 Bisacodyl (Dulcolax) 5 mg DAILY PRN PO .CONSTIPATION; Start 05/05/18 at 06:00 Tamsulosin HCl (Flomax) 0.4 mg HS PO Last administered on 05/05/18 21:42; Admin Dose 0.4 MG; Start 05/05/18 at 21:00 Vancomycin HCl (Vanco Iv Per Pharmacy) VANCOMYCIN PER PHARMACY PER PROTOCOL XX ; Start 05/05/18 at 07:00 Piperacillin Sod/ Tazobactam Sod 100 ml @ 200 mls/hr Q6 IVPB Last administered on 05/06/18 11:01; Admin Dose 200 MLS/HR; Start 05/05/18 at 07:00 Vancomycin HCl 250 ml @ 125 mls/hr Q12H IVPB Last administered on 05/06/18 08:38; Admin Dose 125 MLS/HR; Start 05/05/18 at 21:00 Albuterol/ Ipratropium (Duoneb) 3 ml Q4H RESP THERAPY PRN HHN SHORTNESS OF BREATH Last administered on 05/06/18at 00:06; Admin Dose 3 ML; Start 05/05/18 at 22:30 Acetaminophen 100 ml @ 400 mls/hr Q6H IVPB Last administered on 05/06/18at 13:42; Admin Dose 400 MLS/HR; Start 05/06/18 at 01:00; Stop 05/07/18 at 00:59 Dextrose/Sodium Chloride 1,000 ml @ 50 mls/hr Q20H IV Last administered on 05/06/18at 11:46; Admin Dose 50 MLS/HR; Start 05/06/18 at 11:00 Caspofungin 50 mg/ Sodium Chloride 250 ml @ 250 mls/hr Q24H IVPB ; Start 05/07/18 at 16:00 Caspofungin 70 mg/ Sodium Chloride 250 ml @ 250 mls/hr ONCE ONCE IVPB ; Start 05/06/18 at 16:00; Stop 05/06/18 at 16:59 Miscellaneous Information (*Rx Drug Level Order Reminder*) RACHELL WEBBER @ 2,000 ON... ONCE ONCE XX ; Start 05/06/18 at 20:00; Stop 05/06/18 at 20:01 TAHIR MCBRIDE May 06, 2018 15:36
[2018-05-06] MEDS ORDERED: CASPOFUNGIN 70 MG in SOD CHLORIDE 0.9% 250 ML IVPB ONE (16:00)
[2018-05-06] MEDS: DEXTROSE 5%-0.9% NACL 1,000 ML IV SCH (16:42)
--- NOTE | 2018-05-06 17:06 | CONS ---
Assessment/Plan Assessment/Plan Assessment/Plan (Daily) 1. 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 Sepsis 3. H/o metastatic colon CA on chemotherapy 4. H/o HTN 5. H/o HL 6. Dizziness Plan: seen on Tele floor Na persistently remaiend low to125,pt received IVF , Urine Na 31- c/w SIADH will give Na chloride tablet 1gram PO BID Thanks for consultation, I will continue to follow up Consultation Date/Type/Reason Admit Date/Time May 05, 2018 at 12:31 Date of Consultation: May 06, 2018 Type of Consult NEPHROLOGY Reason for Consultation hyponatremia, acute prerenal azotemia Requesting Provider: TAHIR MCBRDIE Date/Time of Note DATE: 05/06/18 TIME: 17:06 Hx of Present Illness 62-year-old male with stage IV colon cancer with a history of metastasis to the liver and the brain who presents to [facility] via ambulance with complaints of weakness times 3 days. Patient has been receiving chemotherapy for his colon cancer [facility] through his oncologist Dr. Dunn. He is currently on capecitabine, Avastin and Irontecan. pt was febrile on admission . he has been admitted for SIRS, left facial droop, to rule out Acute CVA- his MRI brain has been negative Renal has been consulted for HYponatremia, Pt Na has been around 125 Constitutional: poor po Eyes: no complaints ENT: no complaints Respiratory: no complaints Cardiovascular: no complaints Gastrointestinal: no complaints Genitourinary: no complaints Musculoskeletal: no complaints Skin: no complaints Neurologic: no complaints Endocrine: no complaints Lymphatic: no complaints Psychological: no complaints Immunologic: no complaints Past Medical History Medical History: other (stage IV colon CA with metastatis to liver and brain ) Home Meds Reported Medications Levothyroxine Sodium* (Levothyroxine Sodium*) 50 Mcg Tablet, 50 MCG PO BEFORE BREAKFAST, #30 TAB 05/05/18 Biotin (Biotin) 10,000 Mcg Capsule, 31747 MCG PO DAILY, CAP 05/05/18 Calcium Carb/D3/Magnesium/Zinc (Bidnolm-Trs-Aebr-Vit D Tablet) 1 Each Tablet, 1 EACH PO DAILY, TAB 05/05/18 Rosuvastatin Calcium* (Crestor*) 20 Mg Tablet, 20 MG PO QHS, #30 TAB 05/05/18 Omeprazole* (Omeprazole*) 20 Mg Capsule.dr, 20 MG PO DAILY, #30 CAP 05/05/18 Cholecalciferol (Vitamin D3) 5,000 Unit Tablet, 5000 UNIT PO DAILY, TAB 05/05/18 Hydrochlorothiazide* (Hydrochlorothiazide*) 25 Mg Tab, 25 MG PO DAILY, #30 TAB 05/05/18 Pyridoxine Hcl* (Vitamin B-6*) 100 Mg Tablet, 100 MG PO DAILY, TAB 05/05/18 Metoprolol Tartrate* (Lopressor*) 25 Mg Tab, 25 MG PO BID, #60 TAB 05/05/18 Capecitabine (Capecitabine) 500 Mg Tablet, 500 MG PO DAILY, TAB TAKE 3 TABLETS (1500MG) BY MOUTH IN THE MORNIING AND 2 TABLETS (1000MG) IN THE EVENING DAILY FROM FRIDAY TO FRIDAY. 05/05/18 Irinotecan Hcl (CAMPTOSAR) Unknown Strength Vial, IV, VIAL 05/05/18 Bevacizumab* (Avastin*) 25 Mg/Ml Soln, 400 MG IV, EA 05/05/18 Tamsulosin Hcl* (Tamsulosin Hcl*) 0.4 Mg Cap.er.24h, 0.4 MG PO HS, CAP 05/05/18 Chlorpromazine Hcl* (Chlorpromazine Hcl*) 25 Mg Tablet, 25 MG PO TID, TAB 05/05/18 Medications Current Medications Levothyroxine Sodium (Synthroid) 50 mcg BEFORE BREAKFAST PO Last administered on 05/06/18at 06:47; Admin Dose 50 MCG; Start 05/05/18 at 07:00 Pyridoxine HCl (Vitamin B6) 100 mg DAILY PO Last administered on 05/06/18at 08:37; Admin Dose 100 MG; Start 05/05/18 at 09:00 Calcium/Vitamin D (Oyster Shell/ Vit-D (500/200)) 1 tab DAILY PO Last adm inistered on 05/06/18at 08:38; Admin Dose 1 TAB; Start 05/05/18 at 09:00 Pantoprazole (Protonix Tab) 40 mg DAILY@06 PO Last administered on 05/06/18at 06:47; Admin Dose 40 MG; Start 05/05/18 at 06:21 Atorvastatin Calcium (Lipitor) 80 mg DAILY@21 PO Last administered on 05/05/18at 21:42; Admin Dose 80 MG; Start 05/05/18 at 21:00 Sodium Chloride 1,000 ml @ 75 mls/hr [id number] IV Last administered on 05/05/18at 05:38; Admin Dose 75 MLS/HR; Start 05/05/18 at 05:38; Status Hold IV Flush (NS 3 ml) 3 ml PER PROTOCOL IV ; Start 05/05/18 at 06:00 Ondansetron HCl (Zofran Inj) 4 mg Q6H PRN IV NAUSEA/VOMITING; Start 05/05/18 at 06:00 Acetaminophen (Tylenol Tab) 650 mg Q6H PRN PO .PAIN 1-3 OR TEMP Last administer ed on 05/05/18at 21:42; Admin Dose 650 MG; Start 05/05/18 at 06:00; Status Hold Docusate Sodium (Colace) 100 mg Q12H PRN PO .CONSTIPATION; Start 05/05/18 at 06:00 Bisacodyl (Dulcolax) 5 mg DAILY PRN PO .CONSTIPATION; Start 05/05/18 at 06:00 Tamsulosin HCl (Flomax) 0.4 mg HS PO Last administered on 05/05/18at 21:42; Admin Dose 0.4 MG; Start 05/05/18 at 21:00 Vancomycin HCl (Vanco Iv Per Pharmacy) VANCOMYCIN PER PHARMACY PER PROTOCOL XX ; Start 05/05/18 at 07:00 Piperacillin Sod/ Tazobactam Sod 100 ml @ 200 mls/hr Q6 IVPB Last administered on 05/06/18at 11:01; Admin Dose 200 MLS/HR; Start 05/05/18 at 07:00 Vancomycin HCl 250 ml @ 125 mls/hr Q12H IVPB Last administered on 05/06/18 08:38; Admin Dose 125 MLS/HR; Start 05/05/18 at 21:00 Albuterol/ Ipratropium (Duoneb) 3 ml Q4H RESP THERAPY PRN HHN SHORTNESS OF BREATH Last administered on 05/06/18at 00:06; Admin Dose 3 ML; Start 05/05/18 at 22:30 Caspofungin 50 mg/ Sodium Chloride 250 ml @ 250 mls/hr Q24H IVPB ; Start 05/07/18 at 16:00 Miscellaneous Information (*Rx Drug Level Order Reminder*) RACHELL WEBBER @ 2,000 ON... ONCE ONCE XX ; Start 05/06/18 at 20:00; Stop 05/06/18 at 20:01 Dextrose/Sodium Chloride 1,000 ml @ 75 mls/hr [id number] IV Last administered on 05/06/18at 16:42; Admin Dose 75 MLS/HR; Start 05/06/18 at 16:00 Allergies: Coded Allergies: No Known Allergy (Unverified , 05/05/18) Past Surgical History Past Surgical Hx: other (Craniotomy, Colon surgery , hernia surgery ) Family History Significant Family History: no pertinent family hx Social History Alcohol Use: none Smoking Status: Never smoker Drug Use: none Exam/Review of Systems Exam Vitals Vital Signs Date Temp Pulse Resp B/P (MAP) Pulse Ox O2 O2 Flow FiO2 Time Delivery Rate 05/06/18 63 16:16 05/06/18 99.1 19 116/70 97 15:42 (85) 05/06/18 21 00:06 05/05/18 Room Air 08:13 Intake and Output 05/05/18 05/05/18 05/06/18 1515:00 23:00 07:00 IntakeIntake Total 100 ml 1860 ml 100 ml BalanceBalance 100 ml 1860 ml 100 ml Constitutional: alert Head: normocephalic Eyes: nl conjunctiva ENMT: nl external ears & nose Neck: supple, non-tender Respiratory: clear to auscultation, congested cough, diminished breath sounds Cardiovascular: regular rate and rhythm, nl pulses Gastrointestinal: soft, non-tender Musculoskeletal: nl extremities to inspection Extremities: normal pulses 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, nl mental status, nl speech, nl strength Skin: nl turgor Lymph: nl lymph nodes Results Result Diagram: 05/06/18 0625 05/06/18 1057 Results 24hrs Laboratory Tests Test 05/05/18 17:43 05/06/18 06:24 05/06/18 06:25 05/06/18 10:57 Urine Color YELLOW Urine Clarity CLEAR Urine pH 6.0 Urine Specific [place] 1.021 Urine Ketones NEGATIVE Urine Nitrite NEGATIVE Urine Bilirubin NEGATIVE Urine Urobilinogen 1+ H Urine Leukocyte Esterase NEGATIVE Urine Microscopic RBC 3 Urine Microscopic WBC 1 Urine Hemoglobin NEGATIVE Urine Glucose NEGATIVE Urine Total Protein 2+ H Hemoglobin A1c 5.9 White Blood Count 4.7 L Red Blood Count 3.00 #L Hemoglobin 9.9 #L Hematocrit 27.9 #L Mean Corpuscular Volume 93.0 Mean Corpuscular 33.0 Hemoglobin Mean Corpuscular 35.5 Hemoglobin Concent Red Cell Distribution 15.5 H Width Platelet Count 68 L Mean Platelet Volume 12.0 H Immature Granulocytes % 1.700 H Neutrophils % Segmented Neutrophils 79 H % (Manual) Band Neutrophils % 1 (Manual) Lymphocytes % Lymphocytes % (Manual) 8 L Monocytes % Monocytes % (Manual) 12 H Nucleated Red Blood 0.0 Cells % Immature Granulocytes # 0.080 H Neutrophils # Neutrophils # (Manual) 3.7 Band Neutrophils # 0.0 Lymphocytes (Manual) 0.3 L Lymphocytes # Monocytes # Monocytes # (Manual) 0.5 Platelet Estimate DECREASED Poikilocytosis 1+ Anisocytosis 1+ Macrocytosis 1+ Sodium Level 126 L 125 L Potassium Level 3.7 3.7 Chloride Level 97 98 Carbon Dioxide Level 21 19 L Anion Gap 8 8 Blood Urea Nitrogen 16 17 Creatinine 0.93 0.91 Est Glomerular Filtrat > 60 > 60 Rate mL/min Glucose Level 122 122 Calcium Level 8.0 L 8.0 L Magnesium Level 1.7 Total Bilirubin 0.8 Direct Bilirubin 0.00 Indirect Bilirubin 0.8 Aspartate Amino 36 Transf (AST/SGOT) Alanine 28 Aminotransferase (ALT/SG PT) Alkaline Phosphatase 71 Total Protein 5.3 L Albumin 2.8 L Globulin 2.50 Albumin/Globulin Ratio 1.12 Thyroid Stimulating 1.400 Hormone (TSH) Lactic Acid Level 2.7 *H Medications Medication Current Medications Levothyroxine Sodium (Synthroid) 50 mcg BEFORE BREAKFAST PO Last administered on 05/06/18 06:47; Admin Dose 50 MCG; Start 05/05/18 at 07:00 Pyridoxine HCl (Vitamin B6) 100 mg DAILY PO Last administered on 05/06/18 08:37; Admin Dose 100 MG; Start 05/05/18 at 09:00 Calcium/Vitamin D (Oyster Shell/ Vit-D (500/200)) 1 tab DAILY PO Last administered on 05/06/18 08:38; Admin Dose 1 TAB; Start 05/05/18 at 09:00 Pantoprazole (Protonix Tab) 40 mg DAILY@06 PO Last administered on 05/06/18 06:47; Admin Dose 40 MG; Start 05/05/18 at 06:21 Atorvastatin Calcium (Lipitor) 80 mg DAILY@21 PO Last administered on 05/05/18 21:42; Admin Dose 80 MG; Start 05/05/18 at 21:00 Sodium Chloride 1,000 ml @ 75 mls/hr [id number] IV Last administered on 05/05/18 05:38; Admin Dose 75 MLS/HR; Start 05/05/18 at 05:38; Status Hold IV Flush (NS 3 ml) 3 ml PER PROTOCOL IV ; Start 05/05/18 at 06:00 Ondansetron HCl (Zofran Inj) 4 mg Q6H PRN IV NAUSEA/VOMITING; Start 05/05/18 at 06:00 Acetaminophen (Tylenol Tab) 650 mg Q6H PRN PO .PAIN 1-3 OR TEMP Last ad ministered on 05/05/18 21:42; Admin Dose 650 MG; Start 05/05/18 at 06:00; Status Hold Docusate Sodium (Colace) 100 mg Q12H PRN PO .CONSTIPATION; Start 05/05/18 at 06:00 Bisacodyl (Dulcolax) 5 mg DAILY PRN PO .CONSTIPATION; Start 05/05/18 at 06:00 Tamsulosin HCl (Flomax) 0.4 mg HS PO Last administered on 05/05/18 21:42; Admin Dose 0.4 MG; Start 05/05/18 at 21:00 Vancomycin HCl (Vanco Iv Per Pharmacy) VANCOMYCIN PER PHARMACY PER PROTOCOL XX ; Start 05/05/18 at 07:00 Piperacillin Sod/ Tazobactam Sod 100 ml @ 200 mls/hr Q6 IVPB Last administered on 05/06/18 11:01; Admin Dose 200 MLS/HR; Start 05/05/18 at 07:00 Vancomycin HCl 250 ml @ 125 mls/hr Q12H IVPB Last administered on 05/06/18 08:38; Admin Dose 125 MLS/HR; Start 05/05/18 at 21:00 Albuterol/ Ipratropium (Duoneb) 3 ml Q4H RESP THERAPY PRN HHN SHORTNESS OF BREATH Last administered on 05/06/18 00:06; Admin Dose 3 ML; Start 05/05/18 at 22 :30 Caspofungin 50 mg/ Sodium Chloride 250 ml @ 250 mls/hr Q24H IVPB ; Start 05/07/18 at 16:00 Miscellaneous Information (*Rx Drug Level Order Reminder*) VANCO STEPHANIEUGH @ 2,000 ON... ONCE ONCE XX ; Start 05/06/18 at 20:00; Stop 05/06/18 at 20:01 Dextrose/Sodium Chloride 1,000 ml @ 75 mls/hr [id number] IV Last administered on 05/06/18at 16:42; Admin Dose 75 MLS/HR; Start 05/06/18 at 16:00 CHETAN NOVA MD May 06, 2018 17:06
--- NOTE | 2018-05-06 17:36 | PN ---
DATE: 05/06/2018 REQUESTING PHYSICIAN: Kacey Flor MD Thank you, Dr. Flor for this consultation. HISTORY OF PRESENT ILLNESS: This is a well-developed, well-nourished 62-year-old man with a history of stage IV colon cancer with mets to brain, liver and lungs. The patient had been on chemotherapy. He had a colon surgery in 2015, and at that time in October, he had a left chest Port-A-Cath placement. He was on and off chemotherapy since that time. He had a last PET scan checked in 03/2018. His last chemotherapy was on Friday. The patient was in his usual state of health when 2 days ago when he developed severe weakness and it was unclear if he fell in the bathroom. Per and daughter who are at bedside, he was in contact with his grandchildren and one of his granddaughter had an upper respiratory infection. The patient has a history of brain mass resection in 10/2015. He had also resection of primary tumor to prevent further obstruction in 2015. The patient came with worsening mental status, generalized weakness and is spiking fevers now with a temperature ranging from 100 to 103. White blood cell count 4.6, H and H 12.9 and 36.3, platelets 63, neutrophils 87.7. Lactic acid 2.7, sodium 133, potassium 4.9, BUN 20, creatinine 1.01, glucose 128. Negative troponin. Urinalysis revealed yellow clear urine with negative nitrite, leukocyte esterase. Chest CT showed mild pulmonary emphysema, areas of interstitial thickening and traction bronchiectasis peripherally bilaterally concerning for mild underlying interstitial pneumonitis/fibrosis. No evidence of mass, lymphadenopathy or acute infiltrates. Left side Port-A-Cath in place, mild hiatal hernia, splenomegaly 16 cm, status post partial right colon resection. CT of the brain revealed status post left occipital craniotomy with unremarkable fixation. Left occipital encephalomalacia consistent with old infarct, mild generalized cerebral volume loss and moderate nonspecific chronic microvascular ischemic disease. ALLERGIES: NONE. REVIEW OF SYSTEMS: As per history of present illness. The patient himself cannot give any information. ANTIMICROBIALS: He was started on vancomycin and Zosyn. SOCIAL HISTORY: The patient lives with his family daughter and . He does not smoke, drink or use illicits. PHYSICAL EXAMINATION: GENERAL: This is a well-nourished, well-developed elderly man who is lethargic, in no distress. HEENT: Head atraumatic, normocephalic. Sclerae anicteric. Buccal mucosa dry. NECK: Supple. CHEST: Rise symmetrical. Breath sounds clear, diminished to bases. HEART: S1, S2. ABDOMEN: Soft, bowel tones present. EXTREMITIES: Without cyanosis. DIAGNOSTIC IMPRESSION: 1. Sepsis with ongoing high fevers, possibly secondary to acute pneumonitis. 2. Metastatic colon cancer, status post resection. 3. Acute encephalopathy with history of brain mass and status post mass resection. 4. Anemia. 5. Pancytopenia. PLAN: The patient is being seen by oncology. He is on broad spectrum antibiotics. So far, blood and urine cultures negative. We will add empiric antifungal coverage with Cancidas. We will send blood cultures from his Port-A-Cath and also order MRSA swab. Check him for influenza, follow procalcitonin level in am. The patient is supposed to have MRI of the brain. Further recommendations per patient's clinical course, cultures and diagnostics. Discussed with Dr. Sean Harmon. Dictated By: ALISHA MSIHRA CLINICAL NUTRITION MANAGER for SEAN HARMON MD NI/NTS Conf#: [id number] DID#: [id number] CC: MARIS BECK MD;*EndCC* MTDD
[2018-05-06] MEDS: ATORVASTATIN 80 MG TAB PO SCH (21:27)
[2018-05-06] MEDS: ACETAMINOPHEN 325 MG TAB PO PRN (21:27)
[2018-05-06] MEDS: TAMSULOSIN (SR) 0.4 MG CAP PO SCH (21:27)
[2018-05-06] MEDS: SODIUM CHLORIDE 1 GM TAB PO SCH (21:59)
[2018-05-07] VITALS (12 sets, daily range): BP systolic 121–156; BP diastolic 61–78; PULSE 66–82; RESP 20
[2018-05-07] MEDS: PIPER-TAZO 3.375 GM IV (PMX) 100 ML IVPB SCH ×4 (00:43→17:50)
[2018-05-07] MEDS: VANCOMYCIN 1 GM 250 ML IVPB SCH ×3 (04:43→21:15)
[2018-05-07] MEDS: ACETAMINOPHEN 325 MG TAB PO PRN ×3 (04:44→22:44)
[2018-05-07] MEDS: DEXTROSE 5%-0.9% NACL 1,000 ML IV SCH ×2 (05:20→18:30)
[2018-05-07] MEDS: PANTOPRAZOLE (EC) 40 MG TAB PO SCH (06:00)
[2018-05-07] MEDS ORDERED: PANTOPRAZOLE 40 MG INJ IV SCH (06:00)
[2018-05-07] MEDS: LEVOTHYROXINE 50 MCG TAB PO SCH ×2 (06:42→09:38)
[2018-05-07] MEDS ORDERED: IOHEXOL 14.3 MG(I)/ML (ADULT) BTL PO ONE (09:00)
[2018-05-07] MEDS: CALCIUM/VITAMIN D (500/200) TAB PO SCH (09:06)
[2018-05-07] MEDS: PYRIDOXINE 50 MG TAB PO SCH (09:07)
[2018-05-07] MEDS: SODIUM CHLORIDE 1 GM TAB PO SCH ×2 (09:38→21:13)
[2018-05-07] MEDS: OSELTAMIVIR 75 MG CAP PO SCH ×2 (11:34→21:14)
--- NOTE | 2018-05-07 11:51 | CONS ---
Assessment/Plan Assessment/Plan Assessment/Plan (Daily) 1. 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 Sepsis 3. H/o metastatic colon CA on chemotherapy 4. H/o HTN 5. H/o HL 6. Dizziness Plan: Na 125, same, continue Na chloride tablet 1gram PO BID will follow up Consultation Date/Type/Reason Admit Date/Time May 05, 2018 at 12:31 Initial Consult Date 05/06/18 Type of Consult NEPHROLOGY Requesting Provider: TAHIR MCBRIDE Date/Time of Note DATE: 05/07/18 TIME: 11:51 Exam/Review of Systems Exam Vitals Vital Signs Date Temp Pulse Resp B/P (MAP) Pulse Ox O2 O2 Flow FiO2 Time Delivery Rate 05/07/18 98.5 81 20 139/65 96 Room Air 10:57 (89) 05/06/18 21 00:06 Intake and Output 05/06/18 05/06/18 05/07/18 1515:00 23:00 07:00 IntakeIntake Total 450 ml 750 ml 950 ml OutputOutput Total 1200 ml 650 ml BalanceBalance 450 ml -450 ml 300 ml Results Result Diagram: 05/07/18 0637 05/06/18 1057 Results 24hrs Laboratory Tests Test 05/06/18 16:15 05/06/18 16:57 05/06/18 20:05 05/06/18 23:05 Urine Random Sodium 31 Creatine Kinase 137 157 Creatine Kinase Index 0.3 0.1 Creatinine Kinase MB 0.35 < 0.22 (Mass) Troponin I < 0.012 < 0.012 Vancomycin Level Trough 6.2 L Test 05/07/18 06:37 White Blood Count 4.4 L Red Blood Count 2.85 L Hemoglobin 9.4 L Hematocrit 26.3 L Mean Corpuscular Volume 92.3 Mean Corpuscular 33.0 Hemoglobin Mean Corpuscular 35.7 Hemoglobin Concent Red Cell Distribution 15.2 H Width Platelet Count 75 L Mean Platelet Volume 11.2 H Immature Granulocytes % 1.100 H Neutrophils % Segmented Neutrophils 68 % (Manual) Band Neutrophils % 6 H (Manual) Lymphocytes % Lymphocytes % (Manual) 13 L Reactive Lymphocytes 2 H % (Manual) Monocytes % Monocytes % (Manual) 11 Eosinophils % Basophils % Nucleated Red Blood 0.0 Cells % Immature Granulocytes # 0.050 H Neutrophils # Neutrophils # (Manual) 3.0 Band Neutrophils # 0.2 Lymphocytes (Manual) 0.5 L Lymphocytes # Reactive Lymphocytes # 0.0 Monocytes # Monocytes # (Manual) 0.4 Eosinophils # Basophils # Nucleated Red Blood Cells # Platelet Estimate DECREASED Giant Platelets 2 H Poikilocytosis 1+ Anisocytosis 1+ Spherocytes 1+ Lactic Acid Level 1.4 Medications Medication Current Medications Levothyroxine Sodium (Synthroid) 50 mcg BEFORE BREAKFAST PO Last administered on 05/07/18 09:38; Admin Dose 50 MCG; Start 05/05/18 at 07:00 Pyridoxine HCl (Vitamin B6) 100 mg DAILY PO Last administered on 05/07/18 09:07; Admin Dose 100 MG; Start 05/05/18 at 09:00 Calcium/Vitamin D (Oyster Shell/ Vit-D (500/200)) 1 tab DAILY PO Last administered on 05/07/18 09:06; Admin Dose 1 TAB; Start 05/05/18 at 09:00 Atorvastatin Calcium (Lipitor) 80 mg DAILY@21 PO Last administered on 05/06/18 21:27; Admin Dose 80 MG; Start 05/05/18 at 21:00 IV Flush (NS 3 ml) 3 ml PER PROTOCOL IV ; Start 05/05/18 at 06:00 Ondansetron HCl (Zofran Inj) 4 mg Q6H PRN IV NAUSEA/VOMITING; Start 05/05/18 at 06:00 Docusate Sodium (Colace) 100 mg Q12H PRN PO .CONSTIPATION; Start 05/05/18 at 06:00 Bisacodyl (Dulcolax) 5 mg DAILY PRN PO .CONSTIPATION; Start 05/05/18 at 06:00 Tamsulosin HCl (Flomax) 0.4 mg HS PO Last administered on 05/06/18 21:27; Admin Dose 0.4 MG; Start 05/05/18 at 21:00 Vancomycin HCl (Vanco Iv Per Pharmacy) VANCOMYCIN PER PHARMACY PER PROTOCOL XX ; Start 05/05/18 at 07:00 Piperacillin Sod/ Tazobactam Sod 100 ml @ 200 mls/hr Q6 IVPB Last administered on 05/07/18 11:34; Admin Dose 200 MLS/HR; Start 05/05/18 at 07:00 Albuterol/ Ipratropium (Duoneb) 3 ml Q4H RESP THERAPY PRN HHN SHORTNESS OF BREATH Last administered on 05/06/18 00:06; Admin Dose 3 ML; Start 05/05/18 at 22:30 Caspofungin 50 mg/ Sodium Chloride 250 ml @ 250 mls/hr Q24H IVPB ; Start 05/07/18 at 16:00 Dextrose/Sodium Chloride 1,000 ml @ 75 mls/hr [id number] IV Last administered on 05/06/18 16:42; Admin Dose 75 MLS/HR; Start 05/06/18 at 16:00 Vancomycin HCl 250 ml @ 125 mls/hr Q8H IVPB Last administered on 05/07/18 04:43; Admin Dose 125 MLS/HR; Start 05/07/18 at 05:00 Sodium Chloride (Nacl) 1 gm BID PO Last administered on 05/07/18 09:38; Admin Dose 1 GM; Start 05/06/18 at 21:30 Acetaminophen (Tylenol Tab) 650 mg Q6H PRN PO MILD PAIN(1-3)OR ELEVATED TEMP Last administered on 05/07/18 04:44; Admin Dose 650 MG; Start 05/06/18 at 21:30 Pantoprazole (Protonix Iv) 40 mg DAILY@06 IV Last administered on 05/07/18 06:42; Admin Dose 40 MG; Start 05/07/18 at 06:00 Oseltamivir Phosphate (Tamiflu) 75 mg BID PO Last administered on 05/07/18 11:34; Admin Dose 75 MG; Start 05/07/18 at 11:00 CHETAN NOVA MD May 07, 2018 11:51
--- NOTE | 2018-05-07 12:50 | PN ---
Date/Time of Note Date/Time of Note DATE: 05/07/18 TIME: 12:41 Assessment/Plan VTE Prophylaxis Risk score (from Ns)>0 risk: 13 SCD applied (from Ns): Yes Pharmacological prophylaxis: NA/contraindicated Pharm contraindication: thrombocytopenia Lines/Catheters IV [facility]ter Type [facility]from [facility] Portacath Urinary Cath still in place: Yes Reason Cath still needed: other (indicate) Assessment/Plan Hospital Course Subjective: still having high fevers, but mentation is improving, able to stand with PT Objective: Constitutional: somnolent, will barely open eyes to stimulation. per family was able to eat a few spoons this am Head: atraumatic, normocephalic Neck: non-tender, supple Respiratory: diminished ++ Cardiovascular: regular rate and rhythm Gastrointestinal: S/ NT / ND / +BS Extremities: no edema, good radial pulses assessment and Plan: 1. Neutropenic fevers -likely sepsis 2/2 obstructive PNA? CT showing emphysema, bronchiectasis and interstitial pneumonitis -blood and urine cultures remain negative, no sputum production -still having fever / chills -continue abx and repeat blood cultures, -ID input appreciated, patient also on empiric antifungal coverage with Cancidas and tamiflu -will also get venous studies to r/o occult DVT 2. Acute encephalopathy -patient has been having some minor forgetfulness and gait issues prior to admit, was barely responsive, but now is improving -s/p full brain radiation 2015 -MRI showed no new concerning findings but was done without contrast -also mentation is improving -continue to limit mood altering and sedating meds, continue to treat sepsis 3. Metastatic colon ca with brain, lungs and liver mets -s/p partial colon resection / surgical tumor removal in the brain / whole brain radiation 2015 / ongoing chemo -PET scan and MRI showed stable disease -chest CT here shows no mets. ?? -all chemo on hold now re :#1 -last chemo med given about 4 days prior to admit 4. Pancytopenia -from chemo? patient was on injections outpt per family. -oncology following, defer to them for mgt 5. Hyponatremia -Nephrology managing, no salt wasting on UA -continues on gentle fluid hydration 2/2 sepsis and NACL tabs -continue to trend 6. hypothyroidsim -TSH wnl, continue home dosing 7. Prev CVA on CT 8. Transient arrythmia on monitor -ACS ruled out -monitor electrolytes Code status : full code dispo: -still spiking fevers, Na levels not improved -spoke with family in detail at bedside, patient has verbalized he doesn't want to be on alf machines but family yet to make a decision on code status -continue tele supportive care Result Diagram: 05/07/18 0637 05/07/18 0633 Results 24hrs Laboratory Tests Test 05/06/18 16:15 05/06/18 16:57 05/06/18 20:05 05/06/18 23:05 Urine Random Sodium 31 Creatine Kinase 137 157 Creatine Kinase Index 0.3 0.1 Creatinine Kinase MB 0.35 < 0.22 (Mass) Troponin I < 0.012 < 0.012 Vancomycin Level Trough 6.2 L Test 05/07/18 06:33 05/07/18 06:37 Sodium Level 125 L Potassium Level 3.5 Chloride Level 98 Carbon Dioxide Level 21 Anion Gap 6 Blood Urea Nitrogen 18 Creatinine 0.82 Est Glomerular Filtrat > 60 Rate mL/min Glucose Level 134 Calcium Level 7.5 L White Blood Count 4.4 L Red Blood Count 2.85 L Hemoglobin 9.4 L Hematocrit 26.3 L Mean Corpuscular Volume 92.3 Mean Corpuscular 33.0 Hemoglobin Mean Corpuscular 35.7 Hemoglobin Concent Red Cell Distribution 15.2 H Width Platelet Count 75 L Mean Platelet Volume 11.2 H Immature Granulocytes % 1.100 H Neutrophils % Segmented Neutrophils 68 % (Manual) Band Neutrophils % 6 H (Manual) Lymphocytes % Lymphocytes % (Manual) 13 L Reactive Lymphocytes 2 H % (Manual) Monocytes % Monocytes % (Manual) 11 Eosinophils % Basophils % Nucleated Red Blood 0.0 Cells % Immature Granulocytes # 0.050 H Neutrophils # Neutrophils # (Manual) 3.0 Band Neutrophils # 0.2 Lymphocytes (Manual) 0.5 L Lymphocytes # Reactive Lymphocytes # 0.0 Monocytes # Monocytes # (Manual) 0.4 Eosinophils # Basophils # Nucleated Red Blood Cells # Platelet Estimate DECREASED Giant Platelets 2 H Poikilocytosis 1+ Anisocytosis 1+ Spherocytes 1+ Lactic Acid Level 1.4 Exam/Review of Systems Exam Vitals Vital Signs Date Temp Pulse Resp B/P (MAP) Pulse Ox O2 O2 Flow FiO2 Time Delivery Rate 05/07/18 73 12:39 05/07/18 98.5 20 139/65 96 Room Air 10:57 (89) 05/06/18 21 00:06 Intake and Output 05/06/18 05/06/18 05/07/18 1515:00 23:00 07:00 IntakeIntake Total 450 ml 750 ml 950 ml OutputOutput Total 1200 ml 650 ml BalanceBalance 450 ml -450 ml 300 ml Results Results 24hrs Laboratory Tests Test 05/06/18 16:15 05/06/18 16:57 05/06/18 20:05 05/06/18 23:05 Urine Random Sodium 31 Creatine Kinase 137 157 Creatine Kinase Index 0.3 0.1 Creatinine Kinase MB 0.35 < 0.22 (Mass) Troponin I < 0.012 < 0.012 Vancomycin Level Trough 6.2 L Test 05/07/18 06:33 05/07/18 06:37 Sodium Level 125 L Potassium Level 3.5 Chloride Level 98 Carbon Dioxide Level 21 Anion Gap 6 Blood Urea Nitrogen 18 Creatinine 0.82 Est Glomerular Filtrat > 60 Rate mL/min Glucose Level 134 Calcium Level 7.5 L White Blood Count 4.4 L Red Blood Count 2.85 L Hemoglobin 9.4 L Hematocrit 26.3 L Mean Corpuscular Volume 92.3 Mean Corpuscular 33.0 Hemoglobin Mean Corpuscular 35.7 Hemoglobin Concent Red Cell Distribution 15.2 H Width Platelet Count 75 L Mean Platelet Volume 11.2 H Immature Granulocytes % 1.100 H Neutrophils % Segmented Neutrophils 68 % (Manual) Band Neutrophils % 6 H (Manual) Lymphocytes % Lymphocytes % (Manual) 13 L Reactive Lymphocytes 2 H % (Manual) Monocytes % Monocytes % (Manual) 11 Eosinophils % Basophils % Nucleated Red Blood 0.0 Cells % Immature Granulocytes # 0.050 H Neutrophils # Neutrophils # (Manual) 3.0 Band Neutrophils # 0.2 Lymphocytes (Manual) 0.5 L Lymphocytes # Reactive Lymphocytes # 0.0 Monocytes # Monocytes # (Manual) 0.4 Eosinophils # Basophils # Nucleated Red Blood Cells # Platelet Estimate DECREASED Giant Platelets 2 H Poikilocytosis 1+ Anisocytosis 1+ Spherocytes 1+ Lactic Acid Level 1.4 Medications Medication Current Medications Levothyroxine Sodium (Synthroid) 50 mcg BEFORE BREAKFAST PO Last administered on 05/07/18at 09:38; Admin Dose 50 MCG; Start 05/05/18 at 07:00 Pyridoxine HCl (Vitamin B6) 100 mg DAILY PO Last administered on 05/07/18 09:07; Admin Dose 100 MG; Start 05/05/18 at 09:00 Calcium/Vitamin D (Oyster Shell/ Vit-D (500/200)) 1 tab DAILY PO Last administered on 05/07/18 09:06; Admin Dose 1 TAB; Start 05/05/18 at 09:00 Atorvastatin Calcium (Lipitor) 80 mg DAILY@21 PO Last administered on 05/06/18 21:27; Admin Dose 80 MG; Start 05/05/18 at 21:00 IV Flush (NS 3 ml) 3 ml PER PROTOCOL IV ; Start 05/05/18 at 06:00 Ondansetron HCl (Zofran Inj) 4 mg Q6H PRN IV NAUSEA/VOMITING; Start 05/05/18 at 06:00 Docusate Sodium (Colace) 100 mg Q12H PRN PO .CONSTIPATION; Start 05/05/18 at 06:00 Bisacodyl (Dulcolax) 5 mg DAILY PRN PO .CONSTIPATION; Start 05/05/18 at 06:00 Tamsulosin HCl (Flomax) 0.4 mg HS PO Last administered on 05/06/18 21:27; Admin Dose 0.4 MG; Start 05/05/18 at 21:00 Vancomycin HCl (Vanco Iv Per Pharmacy) VANCOMYCIN PER PHARMACY PER PROTOCOL XX ; Start 05/05/18 at 07:00 Piperacillin Sod/ Tazobactam Sod 100 ml @ 200 mls/hr Q6 IVPB Last administered on 05/07/18at 11:34; Admin Dose 200 MLS/HR; Start 05/05/18 at 07:00 Albuterol/ Ipratropium (Duoneb) 3 ml Q4H RESP THERAPY PRN HHN SHORTNESS OF BREATH Last administered on 05/06/18 00:06; Admin Dose 3 ML; Start 05/05/18 at 22:30 Caspofungin 50 mg/ Sodium Chloride 250 ml @ 250 mls/hr Q24H IVPB ; Start 05/07/18 at 16:00 Dextrose/Sodium Chloride 1,000 ml @ 75 mls/hr [id number] IV Last administered on 05/06/18at 16:42; Admin Dose 75 MLS/HR; Start 05/06/18 at 16:00 Vancomycin HCl 250 ml @ 125 mls/hr Q8H IVPB Last administered on 05/07/18 12:31; Admin Dose 125 MLS/HR; Start 05/07/18 at 05:00 Sodium Chloride (Nacl) 1 gm BID PO Last administered on 05/07/18 09:38; Admin Dose 1 GM; Start 05/06/18 at 21:30 Acetaminophen (Tylenol Tab) 650 mg Q6H PRN PO MILD PAIN(1-3)OR ELEVATED TEMP Last administered on 05/07/18 04:44; Admin Dose 650 MG; Start 05/06/18 at 21:30 Pantoprazole (Protonix Iv) 40 mg DAILY@06 IV Last administered on 05/07/18 06:42; Admin Dose 40 MG; Start 05/07/18 at 06:00 Oseltamivir Phosphate (Tamiflu) 75 mg BID PO Last administered on 05/07/18 11:34; Admin Dose 75 MG; Start 05/07/18 at 11:00 TAHIR MBCRIDE May 07, 2018 12:50
--- NOTE | 2018-05-07 13:08 | CONS ---
Assessment/Plan Assessment/Plan Hospital Course (Demo Recall) Patient is lethargic in no distress family at bedside. He continues to spike fever with a T-max this morning 103 T-current 98.5 WBC 4.4 H&H 9.4 and 26.3 platelets 75 bands 6 BUN 18 creatinine 0.82 Microbiology: All cultures are negative influenza swab pending Antimicrobials: Cancidas, Vancomycin, Zosyn, Tamiflu PHYSICAL EXAMINATION: GENERAL: This is a well-nourished, well-developed elderly man who is lethargic, in no distress. HEENT: Head atraumatic, normocephalic. Sclerae anicteric. Buccal mucosa dry. NECK: Supple. CHEST: Rise symmetrical. Breath sounds clear, diminished to bases. HEART: S1, S2. ABDOMEN: Soft, bowel tones present. EXTREMITIES: Without cyanosis. DIAGNOSTIC IMPRESSION: 1. Sepsis with ongoing high fevers, possibly secondary to acute pneumonitis, possibly malignancy induced. 2. Metastatic colon cancer, status post resection. 3. Acute encephalopathy with history of brain mass and status post mass resection. 4. Anemia. 5. Pancytopenia. Plan: Patient is clinically unchanged, pending influenza swab, pending pro- calcitonin level, consider CT abdomen and pelvis and also family concerned that patient has swelling of the neck, consider CT of the neck. Follow chest x-ray in a.m., follow oncology recommendations Consultation Date/Type/Reason Admit Date/Time May 05, 2018 at 12:31 Initial Consult Date 05/06/18 Type of Consult id Requesting Provider: TAHIR MCBRIDE Date/Time of Note DATE: 05/07/18 TIME: 13:06 Exam/Review of Systems Exam Vitals Vital Signs Date Temp Pulse Resp B/P (MAP) Pulse Ox O2 O2 Flow FiO2 Time Delivery Rate 05/07/18 73 12:39 05/07/18 98.5 20 139/65 96 Room Air 10:57 (89) 05/06/18 21 00:06 Intake and Output 05/06/18 05/06/18 05/07/18 1515:00 23:00 07:00 IntakeIntake Total 450 ml 750 ml 950 ml OutputOutput Total 1200 ml 650 ml BalanceBalance 450 ml -450 ml 300 ml Results Result Diagram: 05/07/18 0637 05/07/18 0633 Results 24hrs Laboratory Tests Test 05/06/18 16:15 05/06/18 16:57 05/06/18 20:05 05/06/18 23:05 Urine Random Sodium 31 Creatine Kinase 137 157 Creatine Kinase Index 0.3 0.1 Creatinine Kinase MB 0.35 < 0.22 (Mass) Troponin I < 0.012 < 0.012 Vancomycin Level Trough 6.2 L Test 05/07/18 06:33 05/07/18 06:37 Sodium Level 125 L Potassium Level 3.5 Chloride Level 98 Carbon Dioxide Level 21 Anion Gap 6 Blood Urea Nitrogen 18 Creatinine 0.82 Est Glomerular Filtrat > 60 Rate mL/min Glucose Level 134 Calcium Level 7.5 L White Blood Count 4.4 L Red Blood Count 2.85 L Hemoglobin 9.4 L Hematocrit 26.3 L Mean Corpuscular Volume 92.3 Mean Corpuscular 33.0 Hemoglobin Mean Corpuscular 35.7 Hemoglobin Concent Red Cell Distribution 15.2 H Width Platelet Count 75 L Mean Platelet Volume 11.2 H Immature Granulocytes % 1.100 H Neutrophils % Segmented Neutrophils 68 % (Manual) Band Neutrophils % 6 H (Manual) Lymphocytes % Lymphocytes % (Manual) 13 L Reactive Lymphocytes 2 H % (Manual) Monocytes % Monocytes % (Manual) 11 Eosinophils % Basophils % Nucleated Red Blood 0.0 Cells % Immature Granulocytes # 0.050 H Neutrophils # Neutrophils # (Manual) 3.0 Band Neutrophils # 0.2 Lymphocytes (Manual) 0.5 L Lymphocytes # Reactive Lymphocytes # 0.0 Monocytes # Monocytes # (Manual) 0.4 Eosinophils # Basophils # Nucleated Red Blood Cells # Platelet Estimate DECREASED Giant Platelets 2 H Poikilocytosis 1+ Anisocytosis 1+ Spherocytes 1+ Lactic Acid Level 1.4 Medications Medication Current Medications Levothyroxine Sodium (Synthroid) 50 mcg BEFORE BREAKFAST PO Last administered on 05/07/18at 09:38; Admin Dose 50 MCG; Start 05/05/18 at 07:00 Pyridoxine HCl (Vitamin B6) 100 mg DAILY PO Last administered on 05/07/18 09:07; Admin Dose 100 MG; Start 05/05/18 at 09:00 Calcium/Vitamin D (Oyster Shell/ Vit-D (500/200)) 1 tab DAILY PO Last administered on 05/07/18 09:06; Admin Dose 1 TAB; Start 05/05/18 at 09:00 Atorvastatin Calcium (Lipitor) 80 mg DAILY@21 PO Last administered on 05/06/18 21:27; Admin Dose 80 MG; Start 05/05/18 at 21:00 IV Flush (NS 3 ml) 3 ml PER PROTOCOL IV ; Start 05/05/18 at 06:00 Ondansetron HCl (Zofran Inj) 4 mg Q6H PRN IV NAUSEA/VOMITING; Start 05/05/18 at 06:00 Docusate Sodium (Colace) 100 mg Q12H PRN PO .CONSTIPATION; Start 05/05/18 at 06:00 Bisacodyl (Dulcolax) 5 mg DAILY PRN PO .CONSTIPATION; Start 05/05/18 at 06:00 Tamsulosin HCl (Flomax) 0.4 mg HS PO Last administered on 05/06/18 21:27; Admin Dose 0.4 MG; Start 05/05/18 at 21:00 Vancomycin HCl (Vanco Iv Per Pharmacy) VANCOMYCIN PER PHARMACY PER PROTOCOL XX ; Start 05/05/18 at 07:00 Piperacillin Sod/ Tazobactam Sod 100 ml @ 200 mls/hr Q6 IVPB Last administered on 05/07/18 11:34; Admin Dose 200 MLS/HR; Start 05/05/18 at 07:00 Albuterol/ Ipratropium (Duoneb) 3 ml Q4H RESP THERAPY PRN HHN SHORTNESS OF BREATH Last administered on 05/06/18 00:06; Admin Dose 3 ML; Start 05/05/18 at 22:30 Caspofungin 50 mg/ Sodium Chloride 250 ml @ 250 mls/hr Q24H IVPB ; Start 05/07/18 at 16:00 Dextrose/Sodium Chloride 1,000 ml @ 75 mls/hr [id number] IV Last administered on 05/06/18 16:42; Admin Dose 75 MLS/HR; Start 05/06/18 at 16:00 Vancomycin HCl 250 ml @ 125 mls/hr Q8H IVPB Last administered on 05/07/18 12:31; Admin Dose 125 MLS/HR; Start 05/07/18 at 05:00 Sodium Chloride (Nacl) 1 gm BID PO Last administered on 05/07/18 09:38; Admin Dose 1 GM; Start 05/06/18 at 21:30 Acetaminophen (Tylenol Tab) 650 mg Q6H PRN PO MILD PAIN(1-3)OR ELEVATED TEMP Last administered on 05/07/18at 04:44; Admin Dose 650 MG; Start 05/06/18 at 21:30 Pantoprazole (Protonix Iv) 40 mg DAILY@06 IV Last administered on 05/07/18 06:42; Admin Dose 40 MG; Start 05/07/18 at 06:00 Oseltamivir Phosphate (Tamiflu) 75 mg BID PO Last administered on 05/07/18at 11:34; Admin Dose 75 MG; Start 05/07/18 at 11:00 ALISHA MISHRA NP May 07, 2018 13:08
--- NOTE | 2018-05-07 14:09 | CONS ---
Assessment/Plan Assessment/Plan Hospital Course (Demo Recall) #STAGE IV Colon Cancer -pt has known mets to brain, liver and lung mets -last CT Chest done during this admission demonstrates no evidence of pulmonary mets. Brain MRI shows no evidence of intracranial disease -thus it is likely that patient is currently responding to his current treatment of Xeliri / Avastin -still he appears very weak and it is questionable it he is even able to tolerate this therapy -this will have ot be re-addressed by his oncologist once he is discharged and free of infection -if he has progressed, his primary oncologist may consider Lonsurf vs Stivarga #confusion -Nain MRI MARÍA #Sepsis -continue IV vancomycin and Zosyn -blood cultures pending -appreciate ID recs Consultation Date/Type/Reason Admit Date/Time May 05, 2018 at 12:31 Initial Consult Date 05/05/18 Type of Consult oncology Reason for Consultation metastatic colon cancer Requesting Provider: TAHIR MCBRIDE Date/Time of Note DATE: 05/07/18 TIME: 13:54 24 HR Interval Summary Free Text/Dictation c/o increased abdominal distension Exam/Review of Systems Exam Vitals Vital Signs Date Temp Pulse Resp B/P (MAP) Pulse Ox O2 O2 Flow FiO2 Time Delivery Rate 05/07/18 73 12:39 05/07/18 98.5 20 139/65 96 Room Air 10:57 (89) 05/06/18 21 00:06 Intake and Output 05/06/18 05/06/18 05/07/18 1515:00 23:00 07:00 IntakeIntake Total 450 ml 750 ml 950 ml OutputOutput Total 1200 ml 650 ml BalanceBalance 450 ml -450 ml 300 ml Constitutional: alert, oriented, distress, frail Psych: anxiety, depression Head: normocephalic Eyes: nl conjunctiva ENMT: nl external ears & nose Neck: supple Cardiovascular: regular rate and rhythm Gastrointestinal: soft Musculoskeletal: nl extremities to inspection Extremities: normal pulses Results Result Diagram: 05/07/18 0637 05/07/18 0633 Results 24hrs Laboratory Tests Test 05/06/18 16:15 05/06/18 16:57 05/06/18 20:05 05/06/18 23:05 Urine Random Sodium 31 Creatine Kinase 137 157 Creatine Kinase Index 0.3 0.1 Creatinine Kinase MB 0.35 < 0.22 (Mass) Troponin I < 0.012 < 0.012 Vancomycin Level Trough 6.2 L Test 05/07/18 06:33 05/07/18 06:37 Sodium Level 125 L Potassium Level 3.5 Chloride Level 98 Carbon Dioxide Level 21 Anion Gap 6 Blood Urea Nitrogen 18 Creatinine 0.82 Est Glomerular Filtrat > 60 Rate mL/min Glucose Level 134 Calcium Level 7.5 L White Blood Count 4.4 L Red Blood Count 2.85 L Hemoglobin 9.4 L Hematocrit 26.3 L Mean Corpuscular Volume 92.3 Mean Corpuscular 33.0 Hemoglobin Mean Corpuscular 35.7 Hemoglobin Concent Red Cell Distribution 15.2 H Width Platelet Count 75 L Mean Platelet Volume 11.2 H Immature Granulocytes % 1.100 H Neutrophils % Segmented Neutrophils 68 % (Manual) Band Neutrophils % 6 H (Manual) Lymphocytes % Lymphocytes % (Manual) 13 L Reactive Lymphocytes 2 H % (Manual) Monocytes % Monocytes % (Manual) 11 Eosinophils % Basophils % Nucleated Red Blood 0.0 Cells % Immature Granulocytes # 0.050 H Neutrophils # Neutrophils # (Manual) 3.0 Band Neutrophils # 0.2 Lymphocytes (Manual) 0.5 L Lymphocytes # Reactive Lymphocytes # 0.0 Monocytes # Monocytes # (Manual) 0.4 Eosinophils # Basophils # Nucleated Red Blood Cells # Platelet Estimate DECREASED Giant Platelets 2 H Poikilocytosis 1+ Anisocytosis 1+ Spherocytes 1+ Lactic Acid Level 1.4 Medications Medication Current Medications Levothyroxine Sodium (Synthroid) 50 mcg BEFORE BREAKFAST PO Last administered on 05/07/18at 09:38; Admin Dose 50 MCG; Start 05/05/18 at 07:00 Pyridoxine HCl (Vitamin B6) 100 mg DAILY PO Last administered on 05/07/18at 09:07; Admin Dose 100 MG; Start 05/05/18 at 09:00 Calcium/Vitamin D (Oyster Shell/ Vit-D (500/200)) 1 tab DAILY PO Last administered on 05/07/18at 09:06; Admin Dose 1 TAB; Start 05/05/18 at 09:00 Atorvastatin Calcium (Lipitor) 80 mg DAILY@21 PO Last administered on 05/06/18at 21:27; Admin Dose 80 MG; Start 05/05/18 at 21:00 IV Flush (NS 3 ml) 3 ml PER PROTOCOL IV ; Start 05/05/18 at 06:00 Ondansetron HCl (Zofran Inj) 4 mg Q6H PRN IV NAUSEA/VOMITING; Start 05/05/18 at 06:00 Docusate Sodium (Colace) 100 mg Q12H PRN PO .CONSTIPATION; Start 05/05/18 at 06:00 Bisacodyl (Dulcolax) 5 mg DAILY PRN PO .CONSTIPATION; Start 05/05/18 at 06:00 Tamsulosin HCl (Flomax) 0.4 mg HS PO Last administered on 05/06/18at 21:27; Admin Dose 0.4 MG; Start 05/05/18 at 21:00 Vancomycin HCl (Vanco Iv Per Pharmacy) VANCOMYCIN PER PHARMACY PER PROTOCOL XX ; Start 05/05/18 at 07:00 Piperacillin Sod/ Tazobactam Sod 100 ml @ 200 mls/hr Q6 IVPB Last administered on 05/07/18at 11:34; Admin Dose 200 MLS/HR; Start 05/05/18 at 07:00 Albuterol/ Ipratropium (Duoneb) 3 ml Q4H RESP THERAPY PRN HHN SHORTNESS OF BREATH Last administered on 05/06/18 00:06; Admin Dose 3 ML; Start 05/05/18 at 22:30 Caspofungin 50 mg/ Sodium Chloride 250 ml @ 250 mls/hr Q24H IVPB ; Start 05/07/18 at 16:00 Dextrose/Sodium Chloride 1,000 ml @ 75 mls/hr [id number] IV Last administered on 05/06/18 16:42; Admin Dose 75 MLS/HR; Start 05/06/18 at 16:00 Vancomycin HCl 250 ml @ 125 mls/hr Q8H IVPB Last administered on 05/07/18 12:31; Admin Dose 125 MLS/HR; Start 05/07/18 at 05:00 Sodium Chloride (Nacl) 1 gm BID PO Last administered on 05/07/18 09:38; Admin Dose 1 GM; Start 05/06/18 at 21:30 Acetaminophen (Tylenol Tab) 650 mg Q6H PRN PO MILD PAIN(1-3)OR ELEVATED TEMP Last administered on 05/07/18 04:44; Admin Dose 650 MG; Start 05/06/18 at 21:30 Pantoprazole (Protonix Iv) 40 mg DAILY@06 IV Last administered on 05/07/18at 06:42; Admin Dose 40 MG; Start 05/07/18 at 06:00 Oseltamivir Phosphate (Tamiflu) 75 mg BID PO Last administered on 05/07/18at 11:34; Admin Dose 75 MG; Start 05/07/18 at 11:00 CARIDAD GAFFNEY M.D. May 07, 2018 14:08
[2018-05-07] MEDS: CASPOFUNGIN 50 MG in SOD CHLORIDE 0.9% 250 ML IVPB SCH (15:47)
[2018-05-07] MEDS ORDERED: SOD CHLORIDE 0.9% 100 ML ONE (18:35)
[2018-05-07] MEDS ORDERED: IOHEXOL 300MG/ML 150 ML BTL ONE (18:35)
[2018-05-07] MEDS: ATORVASTATIN 80 MG TAB PO SCH (21:13)
[2018-05-07] MEDS: TAMSULOSIN (SR) 0.4 MG CAP PO SCH (21:14)
[2018-05-08] VITALS (11 sets, daily range): BP systolic 116–149; BP diastolic 67–84; PULSE 65–88; RESP 18–22
[2018-05-08] MEDS: PIPER-TAZO 3.375 GM IV (PMX) 100 ML IVPB SCH ×2 (00:17→05:07)
[2018-05-08] MEDS: PANTOPRAZOLE 40 MG INJ IV SCH (05:07)
[2018-05-08] MEDS: VANCOMYCIN 1 GM 250 ML IVPB SCH ×2 (05:56→12:09)
[2018-05-08] MEDS: ACETAMINOPHEN 325 MG TAB PO PRN ×3 (05:59→19:08)
[2018-05-08] MEDS: LEVOTHYROXINE 50 MCG TAB PO SCH (06:00)
[2018-05-08] MEDS ORDERED: PANTOPRAZOLE (EC) 40 MG TAB PO SCH (06:00)
--- NOTE | 2018-05-08 07:23 | CONS ---
Assessment/Plan Assessment/Plan Assessment/Plan (Daily) 1. 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 Sepsis 3. H/o metastatic colon CA on chemotherapy 4. H/o HTN 5. H/o HL 6. Dizziness Plan: Na improved to 130, continue Na chloride tablet 1gram PO BID will follow up Consultation Date/Type/Reason Admit Date/Time May 05, 2018 at 12:31 Initial Consult Date 05/06/18 Type of Consult NEPHROLOGY Requesting Provider: TAHIR MCBRIDE Date/Time of Note DATE: 05/08/18 TIME: 07:23 Exam/Review of Systems Exam Vitals Vital Signs Date Temp Pulse Resp B/P (MAP) Pulse Ox O2 O2 Flow FiO2 Time Delivery Rate 05/08/18 66 04:00 05/08/18 99.2 20 149/72 93 03:43 (97) 05/07/18 Room Air 16:18 05/06/18 21 00:06 Intake and Output 05/07/18 05/07/18 05/08/18 1515:00 23:00 07:00 IntakeIntake Total 450 ml 1830 ml 450 ml OutputOutput Total 600 ml BalanceBalance 450 ml 1230 ml 450 ml Exam Constitutional: alert Respiratory: clear to auscultation, congested cough, diminished breath sounds Cardiovascular: regular rate and rhythm, nl pulses Gastrointestinal: soft, non-tender Musculoskeletal: nl extremities to inspection Extremities: normal pulses Neurological: [employer] II-XII intact, nl mental status, nl speech, nl strength Results Result Diagram: 05/08/18 0430 05/08/18 0430 Results 24hrs Laboratory Tests Test 05/08/18 04:30 White Blood Count 4.6 L Red Blood Count 2.95 L Hemoglobin 9.7 L Hematocrit 27.3 L Mean Corpuscular Volume 92.5 Mean Corpuscular Hemoglobin 32.9 Mean Corpuscular Hemoglobin Concent 35.5 Red Cell Distribution Width 15.3 H Platelet Count 108 #L Mean Platelet Volume 11.2 H Immature Granulocytes % 0.900 H Neutrophils % 76.2 Lymphocytes % 8.4 L Monocytes % 14.1 H Eosinophils % 0.2 Basophils % 0.2 Nucleated Red Blood Cells % 0.0 Immature Granulocytes # 0.040 H Neutrophils # 3.5 Lymphocytes # 0.4 L Monocytes # 0.6 Eosinophils # 0.0 Basophils # 0.0 Nucleated Red Blood Cells # 0.0 Prothrombin Time 14.7 Prothrombin Time Ratio 1.1 INR International Normalized Ratio 1.14 Activated Partial Thromboplast Time 36.6 H Sodium Level 130 L Potassium Level 3.5 Chloride Level 100 Carbon Dioxide Level 19 L Anion Gap 11 Blood Urea Nitrogen 15 Creatinine 0.73 Est Glomerular Filtrat Rate mL/min > 60 Glucose Level 123 Calcium Level 7.4 L Magnesium Level 2.0 Total Bilirubin 0.7 Direct Bilirubin 0.00 Indirect Bilirubin 0.7 Aspartate Amino Transf (AST/SGOT) 53 H Alanine Aminotransferase (ALT/SGPT) 34 Alkaline Phosphatase 61 Total Protein 5.2 L Albumin 2.6 L Globulin 2.60 Albumin/Globulin Ratio 1.00 Vancomycin Level Trough 10.5 Medications Medication Current Medications Levothyroxine Sodium (Synthroid) 50 mcg BEFORE BREAKFAST PO Last administered on 05/08/18at 06:00; Admin Dose 50 MCG; Start 05/05/18 at 07:00 Pyridoxine HCl (Vitamin B6) 100 mg DAILY PO Last administered on 05/07/18at 09:07; Admin Dose 100 MG; Start 05/05/18 at 09:00 Calcium/Vitamin D (Oyster Shell/ Vit-D (500/200)) 1 tab DAILY PO Last administered on 05/07/18 09:06; Admin Dose 1 TAB; Start 05/05/18 at 09:00 Atorvastatin Calcium (Lipitor) 80 mg DAILY@21 PO Last administered on 05/07/18at 21:13; Admin Dose 80 MG; Start 05/05/18 at 21:00 IV Flush (NS 3 ml) 3 ml PER PROTOCOL IV ; Start 05/05/18 at 06:00 Ondansetron HCl (Zofran Inj) 4 mg Q6H PRN IV NAUSEA/VOMITING; Start 05/05/18 at 06:00 Docusate Sodium (Colace) 100 mg Q12H PRN PO .CONSTIPATION; Start 05/05/18 at 06:00 Bisacodyl (Dulcolax) 5 mg DAILY PRN PO .CONSTIPATION; Start 05/05/18 at 06:00 Tamsulosin HCl (Flomax) 0.4 mg HS PO Last administered on 05/07/18at 21:14; Admin Dose 0.4 MG; Start 05/05/18 at 21:00 Vancomycin HCl (Vanco Iv Per Pharmacy) VANCOMYCIN PER PHARMACY PER PROTOCOL XX ; Start 05/05/18 at 07:00 Piperacillin Sod/ Tazobactam Sod 100 ml @ 200 mls/hr Q6 IVPB Last administered on 05/08/18 05:07; Admin Dose 200 MLS/HR; Start 05/05/18 at 07:00 Albuterol/ Ipratropium (Duoneb) 3 ml Q4H RESP THERAPY PRN HHN SHORTNESS OF BREATH Last administered on 05/06/18 00:06; Admin Dose 3 ML; Start 05/05/18 at 22:30 Caspofungin 50 mg/ Sodium Chloride 250 ml @ 250 mls/hr Q24H IVPB Last admi nistered on 05/07/18 15:47; Admin Dose 250 MLS/HR; Start 05/07/18 at 16:00 Dextrose/Sodium Chloride 1,000 ml @ 75 mls/hr [id number] IV Last administered on 05/07/18 18:30; Admin Dose 75 MLS/HR; Start 05/06/18 at 16:00 Vancomycin HCl 250 ml @ 125 mls/hr Q8H IVPB Last administered on 05/08/18 05:56; Admin Dose 125 MLS/HR; Start 05/07/18 at 05:00 Sodium Chloride (Nacl) 1 gm BID PO Last administered on 05/07/18 21:13; Admin Dose 1 GM; Start 05/06/18 at 21:30 Acetaminophen (Tylenol Tab) 650 mg Q6H PRN PO MILD PAIN(1-3)OR ELEVATED TEMP Last administered on 05/08/18 05:59; Admin Dose 650 MG; Start 05/06/18 at 21:30 Oseltamivir Phosphate (Tamiflu) 75 mg BID PO Last administered on 05/07/18 21:14; Admin Dose 75 MG; Start 05/07/18 at 11:00 Pantoprazole (Protonix Iv) 40 mg DAILY@06 IV Last administered on 05/08/18 05:07; Admin Dose 40 MG; Start 05/08/18 at 06:00 CHETAN NOVA MD May 08, 2018 07:23
[2018-05-08] MEDS: DEXTROSE 5%-0.9% NACL 1,000 ML IV SCH ×2 (08:00→21:20)
[2018-05-08] MEDS: PYRIDOXINE 50 MG TAB PO SCH (08:42)
[2018-05-08] MEDS: OSELTAMIVIR 75 MG CAP PO SCH ×2 (08:42→20:14)
[2018-05-08] MEDS: CALCIUM/VITAMIN D (500/200) TAB PO SCH (08:42)
[2018-05-08] MEDS: SODIUM CHLORIDE 1 GM TAB PO SCH ×2 (09:00→20:14)
--- NOTE | 2018-05-08 10:42 | CONS ---
Assessment/Plan Assessment/Plan Hospital Course (Demo Recall) #STAGE IV Colon Cancer -pt has known mets to brain, liver and lung mets -last CT Chest done during this admission demonstrates no evidence of pulmonary mets. Brain MRI shows no evidence of intracranial disease -thus it is likely that patient is currently responding to his current treatment of Xeliri / Avastin -still he appears very weak and it is questionable it he is even able to tolerate this therapy -this will have ot be re-addressed by his oncologist once he is discharged and free of infection -if he has progressed, his primary oncologist may consider Lonsurf vs Stivarga #confusion -improving -Nain MRI MARÍA #Sepsis -continue IV vancomycin and Zosyn -blood cultures pending -appreciate ID recs Consultation Date/Type/Reason Admit Date/Time May 05, 2018 at 12:31 Initial Consult Date 05/05/18 Type of Consult oncology Reason for Consultation metastatic colon cancer Requesting Provider: TAHIR MCBRIDE Date/Time of Note DATE: 05/08/18 TIME: 10:41 24 HR Interval Summary Free Text/Dictation pt is more awake and alert this morning Exam/Review of Systems Exam Vitals Vital Signs Date Temp Pulse Resp B/P (MAP) Pulse Ox O2 O2 Flow FiO2 Time Delivery Rate 05/08/18 65 08:19 05/08/18 101.3 22 121/67 97 07:30 (85) 05/07/18 Room Air 16:18 05/06/18 21 00:06 Intake and Output 05/07/18 05/07/18 05/08/18 1515:00 23:00 07:00 IntakeIntake Total 450 ml 1830 ml 450 ml OutputOutput Total 600 ml BalanceBalance 450 ml 1230 ml 450 ml Constitutional: alert, oriented Psych: anxiety Head: other (scar from prior craniotomy) Eyes: nl conjunctiva ENMT: nl external ears & nose Neck: supple Respiratory: clear to auscultation Cardiovascular: regular rate and rhythm Gastrointestinal: soft Musculoskeletal: nl extremities to inspection Results Result Diagram: 05/08/18 04305/08/18 043 Results 24hrs Laboratory Tests Test 05/08/18 04:30 White Blood Count 4.6 L Red Blood Count 2.95 L Hemoglobin 9.7 L Hematocrit 27.3 L Mean Corpuscular Volume 92.5 Mean Corpuscular Hemoglobin 32.9 Mean Corpuscular Hemoglobin Concent 35.5 Red Cell Distribution Width 15.3 H Platelet Count 108 #L Mean Platelet Volume 11.2 H Immature Granulocytes % 0.900 H Neutrophils % 76.2 Lymphocytes % 8.4 L Monocytes % 14.1 H Eosinophils % 0.2 Basophils % 0.2 Nucleated Red Blood Cells % 0.0 Immature Granulocytes # 0.040 H Neutrophils # 3.5 Lymphocytes # 0.4 L Monocytes # 0.6 Eosinophils # 0.0 Basophils # 0.0 Nucleated Red Blood Cells # 0.0 Prothrombin Time 14.7 Prothrombin Time Ratio 1.1 INR International Normalized Ratio 1.14 Activated Partial Thromboplast Time 36.6 H Sodium Level 130 L Potassium Level 3.5 Chloride Level 100 Carbon Dioxide Level 19 L Anion Gap 11 Blood Urea Nitrogen 15 Creatinine 0.73 Est Glomerular Filtrat Rate mL/min > 60 Glucose Level 123 Calcium Level 7.4 L Magnesium Level 2.0 Total Bilirubin 0.7 Direct Bilirubin 0.00 Indirect Bilirubin 0.7 Aspartate Amino Transf (AST/SGOT) 53 H Alanine Aminotransferase (ALT/SGPT) 34 Alkaline Phosphatase 61 Total Protein 5.2 L Albumin 2.6 L Globulin 2.60 Albumin/Globulin Ratio 1.00 Vancomycin Level Trough 10.5 Medications Medication Current Medications Levothyroxine Sodium (Synthroid) 50 mcg BEFORE BREAKFAST PO Last administered on 05/08/18at 06:00; Admin Dose 50 MCG; Start 05/05/18 at 07:00 Pyridoxine HCl (Vitamin B6) 100 mg DAILY PO Last administered on 05/08/18 08:42; Admin Dose 100 MG; Start 05/05/18 at 09:00 Calcium/Vitamin D (Oyster Shell/ Vit-D (500/200)) 1 tab DAILY PO Last administered on 05/08/18 08:42; Admin Dose 1 TAB; Start 05/05/18 at 09:00 Atorvastatin Calcium (Lipitor) 80 mg DAILY@21 PO Last administered on 05/07/18at 21:13; Admin Dose 80 MG; Start 05/05/18 at 21:00 IV Flush (NS 3 ml) 3 ml PER PROTOCOL IV ; Start 05/05/18 at 06:00 Ondansetron HCl (Zofran Inj) 4 mg Q6H PRN IV NAUSEA/VOMITING; Start 05/05/18 at 06:00 Docusate Sodium (Colace) 100 mg Q12H PRN PO .CONSTIPATION; Start 05/05/18 at 06:00 Bisacodyl (Dulcolax) 5 mg DAILY PRN PO .CONSTIPATION; Start 05/05/18 at 06:00 Tamsulosin HCl (Flomax) 0.4 mg HS PO Last administered on 05/07/18 21:14; Admin Dose 0.4 MG; Start 05/05/18 at 21:00 Vancomycin HCl (Vanco Iv Per Pharmacy) VANCOMYCIN PER PHARMACY PER PROTOCOL XX ; Start 05/05/18 at 07:00 Piperacillin Sod/ Tazobactam Sod 100 ml @ 200 mls/hr Q6 IVPB Last administered on 05/08/18 05:07; Admin Dose 200 MLS/HR; Start 05/05/18 at 07:00 Albuterol/ Ipratropium (Duoneb) 3 ml Q4H RESP THERAPY PRN HHN SHORTNESS OF B REATH Last administered on 05/06/18 00:06; Admin Dose 3 ML; Start 05/05/18 at 22:30 Caspofungin 50 mg/ Sodium Chloride 250 ml @ 250 mls/hr Q24H IVPB Last administered on 05/07/18 15:47; Admin Dose 250 MLS/HR; Start 05/07/18 at 16:00 Dextrose/Sodium Chloride 1,000 ml @ 75 mls/hr [id number] IV Last administered on 05/07/18 18:30; Admin Dose 75 MLS/HR; Start 05/06/18 at 16:00 Vancomycin HCl 250 ml @ 125 mls/hr Q8H IVPB Last administered on 05/08/18 05:56; Admin Dose 125 MLS/HR; Start 05/07/18 at 05:00 Sodium Chloride (Nacl) 1 gm BID PO Last administered on 05/08/18 09:00; Admin Dose 1 GM; Start 05/06/18 at 21:30 Acetaminophen (Tylenol Tab) 650 mg Q6H PRN PO MILD PAIN(1-3)OR ELEVATED TEMP Last administered on 05/08/18 05:59; Admin Dose 650 MG; Start 05/06/18 at 21:30 Oseltamivir Phosphate (Tamiflu) 75 mg BID PO Last administered on 3/8/19at 08:42; Admin Dose 75 MG; Start 05/07/18 at 11:00 Pantoprazole (Protonix Iv) 40 mg DAILY@06 IV Last administered on 05/08/18at 05:07; Admin Dose 40 MG; Start 05/08/18 at 06:00 CARIDAD GAFFNEY M.D. May 08, 2018 10:42
--- NOTE | 2018-05-08 11:50 | PN ---
Date/Time of Note Date/Time of Note DATE: 05/08/18 TIME: 11:50 Assessment/Plan VTE Prophylaxis [place] [facility] [place] [facility]: 10 [place]CD applied [place] [facility] Yes Pharmacological prophylaxis: NA/contraindicated Pharm contraindication: thrombocytopenia Lines/Catheters IV Catheter Type (from [facility]): portacath Urinary Cath still in place: Yes Reason Cath still needed: other (indicate) Assessment/Plan Hospital Course Subjective: continues to slowly improve, seems to be doing better in terms of fever Objective: Constitutional: more alert, will say a few words Head: atraumatic, normocephalic Neck: non-tender, supple Respiratory: diminished ++ Cardiovascular: regular rate and rhythm Gastrointestinal: S/ NT / ND / +BS Extremities: trace lana edema, good radial pulses assessment and Plan: 1. Neutropenic fevers -likely sepsis 2/2 obstructive PNA? CT showing emphysema, bronchiectasis and interstitial pneumonitis -blood and urine cultures remain negative, no sputum production -fever improving ? -continue abx and repeat blood cultures, -ID input appreciated, patient also on empiric antifungal coverage with Cancidas and tamiflu -Venous studies to r/o occult DVT were negative 2. Acute encephalopathy: improving -patient has been having some minor forgetfulness and gait issues prior to admit, was barely responsive, but now is improving -s/p full brain radiation 2015 -MRI showed no new concerning findings but was done without contrast -also mentation is improving -continue to limit mood altering and sedating meds, continue to treat sepsis 3. Metastatic colon ca with brain, lungs and liver mets -s/p partial colon resection / surgical tumor removal in the brain / whole brain radiation 2015 / ongoing chemo -PET scan and MRI showed stable disease -chest CT here shows no mets. ?? -all chemo on hold now re :#1 -last chemo med given about 4 days prior to admit 4. Pancytopenia -from chemo? patient was on injections outpt per family. -oncology following, defer to them for mgt 5. Hyponatremia -Nephrology managing, no salt wasting on UA -continues on gentle fluid hydration 2/2 sepsis and NACL tabs -continue to trend 6. hypothyroidsim -TSH wnl, continue home dosing 7. Prev CVA on CT 8. 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 Spoke with family in detail at bedside, patient has verbalized he doesn't want to be on group home machines but family yet to make a decision on code status -continue tele supportive care Result Diagram: 05/08/18 0430 05/08/18 0430 Results 24hrs Laboratory Tests Test 05/08/18 04:30 White Blood Count 4.6 L Red Blood Count 2.95 L Hemoglobin 9.7 L Hematocrit 27.3 L Mean Corpuscular Volume 92.5 Mean Corpuscular Hemoglobin 32.9 Mean Corpuscular Hemoglobin Concent 35.5 Red Cell Distribution Width 15.3 H Platelet Count 108 #L Mean Platelet Volume 11.2 H Immature Granulocytes % 0.900 H Neutrophils % 76.2 Lymphocytes % 8.4 L Monocytes % 14.1 H Eosinophils % 0.2 Basophils % 0.2 Nucleated Red Blood Cells % 0.0 Immature Granulocytes # 0.040 H Neutrophils # 3.5 Lymphocytes # 0.4 L Monocytes # 0.6 Eosinophils # 0.0 Basophils # 0.0 Nucleated Red Blood Cells # 0.0 Prothrombin Time 14.7 Prothrombin Time Ratio 1.1 INR International Normalized Ratio 1.14 Activated Partial Thromboplast Time 36.6 H Sodium Level 130 L Potassium Level 3.5 Chloride Level 100 Carbon Dioxide Level 19 L Anion Gap 11 Blood Urea Nitrogen 15 Creatinine 0.73 Est Glomerular Filtrat Rate mL/min > 60 Glucose Level 123 Calcium Level 7.4 L Magnesium Level 2.0 Total Bilirubin 0.7 Direct Bilirubin 0.00 Indirect Bilirubin 0.7 Aspartate Amino Transf (AST/SGOT) 53 H Alanine Aminotransferase (ALT/SGPT) 34 Alkaline Phosphatase 61 Total Protein 5.2 L Albumin 2.6 L Globulin 2.60 Albumin/Globulin Ratio 1.00 Vancomycin Level Trough 10.5 Exam/Review of Systems Exam Vitals Vital Signs Date Temp Pulse Resp B/P (MAP) Pulse Ox O2 O2 Flow FiO2 Time Delivery Rate 05/08/18 99.4 67 22 123/71 99 Room Air 11:17 (88) 05/06/18 21 00:06 Intake and Output 05/07/18 05/07/18 05/08/18 1515:00 23:00 07:00 IntakeIntake Total 450 ml 1830 ml 450 ml OutputOutput Total 600 ml BalanceBalance 450 ml 1230 ml 450 ml Results Results 24hrs Laboratory Tests Test 05/08/18 04:30 White Blood Count 4.6 L Red Blood Count 2.95 L Hemoglobin 9.7 L Hematocrit 27.3 L Mean Corpuscular Volume 92.5 Mean Corpuscular Hemoglobin 32.9 Mean Corpuscular Hemoglobin Concent 35.5 Red Cell Distribution Width 15.3 H Platelet Count 108 #L Mean Platelet Volume 11.2 H Immature Granulocytes % 0.900 H Neutrophils % 76.2 Lymphocytes % 8.4 L Monocytes % 14.1 H Eosinophils % 0.2 Basophils % 0.2 Nucleated Red Blood Cells % 0.0 Immature Granulocytes # 0.040 H Neutrophils # 3.5 Lymphocytes # 0.4 L Monocytes # 0.6 Eosinophils # 0.0 Basophils # 0.0 Nucleated Red Blood Cells # 0.0 Prothrombin Time 14.7 Prothrombin Time Ratio 1.1 INR International Normalized Ratio 1.14 Activated Partial Thromboplast Time 36.6 H Sodium Level 130 L Potassium Level 3.5 Chloride Level 100 Carbon Dioxide Level 19 L Anion Gap 11 Blood Urea Nitrogen 15 Creatinine 0.73 Est Glomerular Filtrat Rate mL/min > 60 Glucose Level 123 Calcium Level 7.4 L Magnesium Level 2.0 Total Bilirubin 0.7 Direct Bilirubin 0.00 Indirect Bilirubin 0.7 Aspartate Amino Transf (AST/SGOT) 53 H Alanine Aminotransferase (ALT/SGPT) 34 Alkaline Phosphatase 61 Total Protein 5.2 L Albumin 2.6 L Globulin 2.60 Albumin/Globulin Ratio 1.00 Vancomycin Level Trough 10.5 Medications Medication Current Medications Levothyroxine Sodium (Synthroid) 50 mcg BEFORE BREAKFAST PO Last administered on 05/08/18at 06:00; Admin Dose 50 MCG; Start 05/05/18 at 07:00 Pyridoxine HCl (Vitamin B6) 100 mg DAILY PO Last administered on 05/08/18at 08:42; Admin Dose 100 MG; Start 05/05/18 at 09:00 Calcium/Vitamin D (Oyster Shell/ Vit-D (500/200)) 1 tab DAILY PO Last administered on 05/08/18at 08:42; Admin Dose 1 TAB; Start 05/05/18 at 09:00 Atorvastatin Calcium (Lipitor) 80 mg DAILY@21 PO Last administered on 05/07/18 21:13; Admin Dose 80 MG; Start 05/05/18 at 21:00 IV Flush (NS 3 ml) 3 ml PER PROTOCOL IV ; Start 05/05/18 at 06:00 Ondansetron HCl (Zofran Inj) 4 mg Q6H PRN IV NAUSEA/VOMITING; Start 05/05/18 at 06:00 Docusate Sodium (Colace) 100 mg Q12H PRN PO .CONSTIPATION; Start 05/05/18 at 06:00 Bisacodyl (Dulcolax) 5 mg DAILY PRN PO .CONSTIPATION; Start 05/05/18 at 06:00 Tamsulosin HCl (Flomax) 0.4 mg HS PO Last administered on 05/07/18 21:14; Admin Dose 0.4 MG; Start 05/05/18 at 21:00 Vancomycin HCl (Vanco Iv Per Pharmacy) VANCOMYCIN PER PHARMACY PER PROTOCOL XX ; Start 05/05/18 at 07:00 Albuterol/ Ipratropium (Duoneb) 3 ml Q4H RESP THERAPY PRN HHN SHORTNESS OF BREATH Last administered on 05/06/18 00:06; Admin Dose 3 ML; Start 05/05/18 at 22:30 Caspofungin 50 mg/ Sodium Chloride 250 ml @ 250 mls/hr Q24H IVPB Last administered on 05/07/18 15:47; Admin Dose 250 MLS/HR; Start 05/07/18 at 16:00 Dextrose/Sodium Chloride 1,000 ml @ 75 mls/hr [id number] IV Last administered on 05/07/18 18:30; Admin Dose 75 MLS/HR; Start 05/06/18 at 16:00 Vancomycin HCl 250 ml @ 125 mls/hr Q8H IVPB Last administered on 05/08/18 05:56; Admin Dose 125 MLS/HR; Start 05/07/18 at 05:00 Sodium Chloride (Nacl) 1 gm BID PO Last administered on 05/08/18 09:00; Admin Dose 1 GM; Start 05/06/18 at 21:30 Acetaminophen (Tylenol Tab) 650 mg Q6H PRN PO MILD PAIN(1-3)OR ELEVATED TEMP Last administered on 05/08/18 05:59; Admin Dose 650 MG; Start 05/06/18 at 21:30 Oseltamivir Phosphate (Tamiflu) 75 mg BID PO Last administered on 05/08/18at 08:42; Admin Dose 75 MG; Start 05/07/18 at 11:00 Pantoprazole (Protonix Iv) 40 mg DAILY@06 IV Last administered on 05/08/18at 05:07; Admin Dose 40 MG; Start 05/08/18 at 06:00 Meropenem/Sodium Chloride 50 ml @ 100 mls/hr Q12 IVPB ; Start 05/08/18 at 21:00; Status UNV TAHIR MCBRIDE May 08, 2018 11:50
[2018-05-08] MEDS: MEROPENEM 1 GM/50ML(PMX) 50 ML IVPB SCH ×2 (14:35→21:28)
--- NOTE | 2018-05-08 15:04 | CONS ---
Assessment/Plan Assessment/Plan Hospital Course (Demo Recall) 1200 Patient is awake, sitting up in bed he was able to stand up with PT. Family at bedside. Patient is still spiking fevers with a T-max this morning of 101.3. Current temperature is 100 pulse 67 respirations 22 blood pressure 123/71 saturation 99 on room air WBC 4.6 H&H 9.7 and 27.3 platelets 108 BUN 15 creatinine 0.73 All cultures remain negative CT abdomen pelvis revealed: 1. Mild thickening of the duodenum, likely accentuated by underdistension, but may represent duodenitis. 2. Mesenteric edema and small volume ascites, similar to prior CT chest exam. Given the proximity to the pancreas, correlation with pancreatic enzyme levels is suggested to exclude pancreatitis. 3. Gallbladder wall edema is also likely related to generalized ascites. However, if clinically indicated, this may be further evaluated with right upper quadrant ultrasound. 4. Postsurgical changes of right colon resection and anastomosis at the hepatic flexure. No evidence of bowel obstruction. 5. Small partial filling defect in the right lower mesenteric venous branch to the superior mesenteric vein, which may represent nonobstructive thrombus versus artifact from the venous mixing and motion. This is may be related to postsurgical changes of right colon resection. Recommend attention on follow-up. 6. No CT evidence of abnormal mass or lymphadenopathy in the abdomen or pelvis . Antimicrobials: Cancidas, Vancomycin, Zosyn, Tamiflu PHYSICAL EXAMINATION: GENERAL: This is a well-nourished, well-developed elderly man who is lethargic, in no distress. HEENT: Head atraumatic, normocephalic. Sclerae anicteric. Buccal mucosa dry. NECK: Supple. CHEST: Rise symmetrical. Breath sounds clear, diminished to bases. HEART: S1, S2. ABDOMEN: Soft, bowel tones present. EXTREMITIES: Without cyanosis. DIAGNOSTIC IMPRESSION: 1. Sepsis with ongoing high fevers 2. Metastatic colon cancer, status post resection. 3. Acute encephalopathy with history of brain mass and status post mass resection. 4. Anemia. 5. Pancytopenia. 6. Possible pancreatitis Plan: Patient is doing better, we will order lipase and change Zosyn to meropenem, continue other antibiotics, follow oncology recommendations Consultation Date/Type/Reason Admit Date/Time May 05, 2018 at 12:31 Initial Consult Date 05/06/18 Type of Consult id Requesting Provider: TAHIR MCBRIDE Date/Time of Note DATE: 05/08/18 TIME: 15:03 Exam/Review of Systems Exam Vitals Vital Signs Date Temp Pulse Resp B/P (MAP) Pulse Ox O2 O2 Flow FiO2 Time Delivery Rate 05/08/18 99.1 12:54 05/08/18 67 12:19 05/08/18 22 123/71 99 Room Air 11:17 (88) 05/06/18 21 00:06 Intake and Output 05/07/18 05/07/18 05/08/18 1414:59 22:59 06:59 IntakeIntake Total 450 ml 1830 ml 450 ml OutputOutput Total 600 ml BalanceBalance 450 ml 1230 ml 450 ml Results Result Diagram: 05/08/18 0430 05/08/18 0430 Results 24hrs Laboratory Tests Test 05/08/18 04:30 White Blood Count 4.6 L Red Blood Count 2.95 L Hemoglobin 9.7 L Hematocrit 27.3 L Mean Corpuscular Volume 92.5 Mean Corpuscular Hemoglobin 32.9 Mean Corpuscular Hemoglobin Concent 35.5 Red Cell Distribution Width 15.3 H Platelet Count 108 #L Mean Platelet Volume 11.2 H Immature Granulocytes % 0.900 H Neutrophils % 76.2 Lymphocytes % 8.4 L Monocytes % 14.1 H Eosinophils % 0.2 Basophils % 0.2 Nucleated Red Blood Cells % 0.0 Immature Granulocytes # 0.040 H Neutrophils # 3.5 Lymphocytes # 0.4 L Monocytes # 0.6 Eosinophils # 0.0 Basophils # 0.0 Nucleated Red Blood Cells # 0.0 Prothrombin Time 14.7 Prothrombin Time Ratio 1.1 INR International Normalized Ratio 1.14 Activated Partial Thromboplast Time 36.6 H Sodium Level 130 L Potassium Level 3.5 Chloride Level 100 Carbon Dioxide Level 19 L Anion Gap 11 Blood Urea Nitrogen 15 Creatinine 0.73 Est Glomerular Filtrat Rate mL/min > 60 Glucose Level 123 Calcium Level 7.4 L Magnesium Level 2.0 Total Bilirubin 0.7 Direct Bilirubin 0.00 Indirect Bilirubin 0.7 Aspartate Amino Transf (AST/SGOT) 53 H Alanine Aminotransferase (ALT/SGPT) 34 Alkaline Phosphatase 61 Total Protein 5.2 L Albumin 2.6 L Globulin 2.60 Albumin/Globulin Ratio 1.00 Lipase 100 Vancomycin Level Trough 10.5 Medications Medication Current Medications Levothyroxine Sodium (Synthroid) 50 mcg BEFORE BREAKFAST PO Last administered on 05/08/18 06:00; Admin Dose 50 MCG; Start 05/05/18 at 07:00 Pyridoxine HCl (Vitamin B6) 100 mg DAILY PO Last administered on 05/08/18 08:42; Admin Dose 100 MG; Start 05/05/18 at 09:00 Calcium/Vitamin D (Oyster Shell/ Vit-D (500/200)) 1 tab DAILY PO Last administered on 05/08/18 08:42; Admin Dose 1 TAB; Start 05/05/18 at 09:00 Atorvastatin Calcium (Lipitor) 80 mg DAILY@21 PO Last administered on 05/07/18 21:13; Admin Dose 80 MG; Start 05/05/18 at 21:00 IV Flush (NS 3 ml) 3 ml PER PROTOCOL IV ; Start 05/05/18 at 06:00 Ondansetron HCl (Zofran Inj) 4 mg Q6H PRN IV NAUSEA/VOMITING; Start 05/05/18 at 06:00 Docusate Sodium (Colace) 100 mg Q12H PRN PO .CONSTIPATION; Start 05/05/18 at 06:00 Bisacodyl (Dulcolax) 5 mg DAILY PRN PO .CONSTIPATION; Start 05/05/18 at 06:00 Tamsulosin HCl (Flomax) 0.4 mg HS PO Last administered on 05/07/18 21:14; Admin Dose 0.4 MG; Start 05/05/18 at 21:00 Vancomycin HCl (Vanco Iv Per Pharmacy) VANCOMYCIN PER PHARMACY PER PROTOCOL XX ; Start 05/05/18 at 07:00 Albuterol/ Ipratropium (Duoneb) 3 ml Q4H RESP THERAPY PRN HHN SHORTNESS OF BREATH Last administered on 05/06/18 00:06; Admin Dose 3 ML; Start 05/05/18 at 22:30 Caspofungin 50 mg/ Sodium Chloride 250 ml @ 250 mls/hr Q24H IVPB Last administered on 05/07/18 15:47; Admin Dose 250 MLS/HR; Start 05/07/18 at 16:00 Dextrose/Sodium Chloride 1,000 ml @ 75 mls/hr [id number] IV Last administered on 05/07/18 18:30; Admin Dose 75 MLS/HR; Start 05/06/18 at 16:00 Vancomycin HCl 250 ml @ 125 mls/hr Q8H IVPB Last administered on 05/08/18 12:09; Admin Dose 125 MLS/HR; Start 05/07/18 at 05:00 Sodium Chloride (Nacl) 1 gm BID PO Last administered on 05/08/18 09:00; Admin Dose 1 GM; Start 05/06/18 at 21:30 Acetaminophen (Tylenol Tab) 650 mg Q6H PRN PO MILD PAIN(1-3)OR ELEVATED TEMP Last administered on 05/08/18 12:09; Admin Dose 650 MG; Start 05/06/18 at 21:30 Oseltamivir Phosphate (Tamiflu) 75 mg BID PO Last administered on 05/08/18 08:42; Admin Dose 75 MG; Start 05/07/18 at 11:00 Pantoprazole (Protonix Iv) 40 mg DAILY@06 IV Last administered on 05/08/18 05:07; Admin Dose 40 MG; Start 05/08/18 at 06:00 Meropenem/Sodium Chloride 50 ml @ 100 mls/hr Q8 IVPB Last administered on 05/08/18 14:35; Admin Dose 100 MLS/HR; Start 05/08/18 at 14:00 ALISHA MISHRA NP May 08, 2018 15:04
[2018-05-08] MEDS: CASPOFUNGIN 50 MG in SOD CHLORIDE 0.9% 250 ML IVPB SCH (16:00)
[2018-05-08] MEDS: ATORVASTATIN 80 MG TAB PO SCH (20:14)
[2018-05-08] MEDS: TAMSULOSIN (SR) 0.4 MG CAP PO SCH (20:14)
[2018-05-08] MEDS: VANCOMYCIN HCL 1.25 GM in SOD CHLORIDE 0.9% 250 ML IVPB SCH (20:15)
[2018-05-08] MEDS ORDERED: KETOROLAC 15 MG INJ IV STA (21:12)
[2018-05-08] MEDS: ONDANSETRON 4 MG INJ IV PRN (23:09)
[2018-05-09] VITALS (10 sets, daily range): BP systolic 121–161; BP diastolic 67–88; PULSE 54–67; RESP 19–20
[2018-05-09] MEDS: ACETAMINOPHEN 325 MG TAB PO PRN ×2 (01:31→21:17)
[2018-05-09] MEDS: MEROPENEM 1 GM/50ML(PMX) 50 ML IVPB SCH ×3 (05:09→21:07)
[2018-05-09] MEDS: PANTOPRAZOLE 40 MG INJ IV SCH (05:09)
[2018-05-09] MEDS: VANCOMYCIN HCL 1.25 GM in SOD CHLORIDE 0.9% 250 ML IVPB SCH ×2 (05:55→14:21)
--- NOTE | 2018-05-09 06:28 | CONS ---
Assessment/Plan Assessment/Plan Assessment/Plan (Daily) I spoke the patient's granddaughter at the bedside and asked her to set up a family conference on May 09, 2018 in patient's room. My intent is only to address whether or not family members understand the extent of his underlying medical problems. And secondarily to hear whether or not patient understands his medical condition also not to directly address this with patient. The question will be would you understand of year current clinical diagnosis. Full palliative care consultation to follow. Consultation Date/Type/Reason Admit Date/Time May 05, 2018 at 12:31 Date/Time of Note DATE: 05/09/18 TIME: 06:27 Hx of Present Illness Is a palliative care consultation on this 62-year-old gentleman presented to [facility] with fevers and neutropenia. Patient diagnosed with probable pneumonia mental status state changes secondary to the above. Patient has a known history of metastatic colon cancer with brain lung and liver metastases last workup MRI January 2000 818 showed stable disease at that time patient is status post whole brain radiation surgical removal of brain tumor. I am asked to speak to family members and supportive care pending recommendations for further care. It is noted at the time of my examination the patient seems to understand some of the conversation that I have discussed with his granddaughter at the bedside but it is suspect whether or not he understands the totality of his underlying major medical problem. Conversation was done at patient's bedside through an phys assistant. Patient has been seen by oncology questionable determination whether or not patient is in good physiologic condition enough to continue with current outpatient chemotherapy. Patient is currently being treated for sepsis syndrome. I am asked to speak to family members and supportive care not to address his ongoing aggressive care for underlying malignancy. Past Medical History Medical History: other (stage IV colon CA with metastatis to liver and brain ) Home Meds Reported Medications Levothyroxine Sodium* (Levothyroxine Sodium*) 50 Mcg Tablet, 50 MCG PO BEFORE BREAKFAST, #30 TAB 05/05/18 Biotin (Biotin) 10,000 Mcg Capsule, 51627 MCG PO DAILY, CAP 05/05/18 Calcium Carb/D3/Magnesium/Zinc (Ivyrejy-Eyg-Xmlr-Vit D Tablet) 1 Each Tablet, 1 EACH PO DAILY, TAB 05/05/18 Rosuvastatin Calcium* (Crestor*) 20 Mg Tablet, 20 MG PO QHS, #30 TAB 05/05/18 Omeprazole* (Omeprazole*) 20 Mg Capsule.dr, 20 MG PO DAILY, #30 CAP 05/05/18 Cholecalciferol (Vitamin D3) 5,000 Unit Tablet, 5000 UNIT PO DAILY, TAB 05/05/18 Hydrochlorothiazide* (Hydrochlorothiazide*) 25 Mg Tab, 25 MG PO DAILY, #30 TAB 05/05/18 Pyridoxine Hcl* (Vitamin B-6*) 100 Mg Tablet, 100 MG PO DAILY, TAB 05/05/18 Metoprolol Tartrate* (Lopressor*) 25 Mg Tab, 25 MG PO BID, #60 TAB 05/05/18 Capecitabine (Capecitabine) 500 Mg Tablet, 500 MG PO DAILY, TAB TAKE 3 TABLETS (1500MG) BY MOUTH IN THE MORNIING AND 2 TABLETS (1000MG) IN THE EVENING DAILY FROM FRIDAY TO FRIDAY. 05/05/18 Irinotecan Hcl (CAMPTOSAR) Unknown Strength Vial, IV, VIAL 05/05/18 Bevacizumab* (Avastin*) 25 Mg/Ml Soln, 400 MG IV, EA 05/05/18 Tamsulosin Hcl* (Tamsulosin Hcl*) 0.4 Mg Cap.er.24h, 0.4 MG PO HS, CAP 05/05/18 Chlorpromazine Hcl* (Chlorpromazine Hcl*) 25 Mg Tablet, 25 MG PO TID, TAB 05/05/18 Medications Current Medications Levothyroxine Sodium (Synthroid) 50 mcg BEFORE BREAKFAST PO Last administered on 05/08/18at 06:00; Admin Dose 50 MCG; Start 05/05/18 at 07:00 Pyridoxine HCl (Vitamin B6) 100 mg DAILY PO Last administered on 05/08/18at 08:42; Admin Dose 100 MG; Start 05/05/18 at 09:00 Calcium/Vitamin D (Oyster Shell/ Vit-D (500/200)) 1 tab DAILY PO Last administered on 05/08/18at 08:42; Admin Dose 1 TAB; Start 05/05/18 at 09:00 Atorvastatin Calcium (Lipitor) 80 mg DAILY@21 PO Last administered on 05/08/18at 20:14; Admin Dose 80 MG; Start 05/05/18 at 21:00 IV Flush (NS 3 ml) 3 ml PER PROTOCOL IV ; Start 05/05/18 at 06:00 Ondansetron HCl (Zofran Inj) 4 mg Q6H PRN IV NAUSEA/VOMITING Last administered on 05/08/18 23:09; Admin Dose 4 MG; Start 05/05/18 at 06:00 Docusate Sodium (Colace) 100 mg Q12H PRN PO .CONSTIPATION; Start 05/05/18 at 06:00 Bisacodyl (Dulcolax) 5 mg DAILY PRN PO .CONSTIPATION; Start 05/05/18 at 06:00 Tamsulosin HCl (Flomax) 0.4 mg HS PO Last administered on 05/08/18 20:14; Admin Dose 0.4 MG; Start 05/05/18 at 21:00 Vancomycin HCl (Vanco Iv Per Pharmacy) VANCOMYCIN PER PHARMACY PER PROTOCOL XX ; Start 05/05/18 at 07:00 Albuterol/ Ipratropium (Duoneb) 3 ml Q4H RESP THERAPY PRN HHN SHORTNESS OF BREATH Last administered on 05/06/18 00:06; Admin Dose 3 ML; Start 05/05/18 at 22:30 Caspofungin 50 mg/ Sodium Chloride 250 ml @ 250 mls/hr Q24H IVPB Last a dministered on 05/08/18 16:00; Admin Dose 250 MLS/HR; Start 05/07/18 at 16:00 Dextrose/Sodium Chloride 1,000 ml @ 75 mls/hr [id number] IV Last administered on 05/07/18 18:30; Admin Dose 75 MLS/HR; Start 05/06/18 at 16:00 Sodium Chloride (Nacl) 1 gm BID PO Last administered on 05/08/18 20:14; Admin Dose 1 GM; Start 05/06/18 at 21:30 Acetaminophen (Tylenol Tab) 650 mg Q6H PRN PO MILD PAIN(1-3)OR ELEVATED TEMP Last administered on 05/09/18 01:31; Admin Dose 650 MG; Start 05/06/18 at 21:30 Oseltamivir Phosphate (Tamiflu) 75 mg BID PO Last administered on 05/08/18 20:14; Admin Dose 75 MG; Start 05/07/18 at 11:00 Pantoprazole (Protonix Iv) 40 mg DAILY@06 IV Last administered on 05/09/18 05:09; Admin Dose 40 MG; Start 05/08/18 at 06:00 Meropenem/Sodium Chloride 50 ml @ 100 mls/hr Q8 IVPB Last administered on 05/09/18at 05:09; Admin Dose 100 MLS/HR; Start 05/08/18 at 14:00 Vancomycin HCl 1.25 gm/Sodium Chloride 250 ml @ 83.333 mls/ hr Q8H IVPB Last administered on 05/09/18at 05:55; Admin Dose 83.333 MLS/HR; Start 05/08/18 at 21:00 Allergies: Coded Allergies: No Known Allergy (Unverified , 05/05/18) Past Surgical History Past Surgical Hx: other (Craniotomy, Colon surgery , hernia surgery ) Social History Alcohol Use: none Smoking Status: Never smoker Drug Use: none Exam/Review of Systems Exam Vitals Vital Signs Date Temp Pulse Resp B/P (MAP) Pulse Ox O2 O2 Flow FiO2 Time Delivery Rate 05/09/18 58 04:00 05/09/18 97.8 20 127/67 99 04:00 (87) 05/08/18 Room Air 23:20 05/06/18 21 00:06 Intake and Output 05/08/18 05/08/18 05/09/18 1515:00 23:00 07:00 IntakeIntake Total 1050 ml OutputOutput Total 600 ml BalanceBalance 450 ml Results Result Diagram: 05/08/18 0430 05/08/18 0430 Medications Medication Current Medications Levothyroxine Sodium (Synthroid) 50 mcg BEFORE BREAKFAST PO Last administered on 05/08/18 06:00; Admin Dose 50 MCG; Start 05/05/18 at 07:00 Pyridoxine HCl (Vitamin B6) 100 mg DAILY PO Last administered on 05/08/18at 08:42; Admin Dose 100 MG; Start 05/05/18 at 09:00 Calcium/Vitamin D (Oyster Shell/ Vit-D (500/200)) 1 tab DAILY PO Last admini stered on 05/08/18at 08:42; Admin Dose 1 TAB; Start 05/05/18 at 09:00 Atorvastatin Calcium (Lipitor) 80 mg DAILY@21 PO Last administered on 05/08/18at 20:14; Admin Dose 80 MG; Start 05/05/18 at 21:00 IV Flush (NS 3 ml) 3 ml PER PROTOCOL IV ; Start 05/05/18 at 06:00 Ondansetron HCl (Zofran Inj) 4 mg Q6H PRN IV NAUSEA/VOMITING Last administered on 05/08/18 23:09; Admin Dose 4 MG; Start 05/05/18 at 06:00 Docusate Sodium (Colace) 100 mg Q12H PRN PO .CONSTIPATION; Start 05/05/18 at 06:00 Bisacodyl (Dulcolax) 5 mg DAILY PRN PO .CONSTIPATION; Start 05/05/18 at 06:00 Tamsulosin HCl (Flomax) 0.4 mg HS PO Last administered on 05/08/18 20:14; Admin Dose 0.4 MG; Start 05/05/18 at 21:00 Vancomycin HCl (Vanco Iv Per Pharmacy) VANCOMYCIN PER PHARMACY PER PROTOCOL XX ; Start 05/05/18 at 07:00 Albuterol/ Ipratropium (Duoneb) 3 ml Q4H RESP THERAPY PRN HHN SHORTNESS OF BREATH Last administered on 05/06/18 00:06; Admin Dose 3 ML; Start 05/05/18 at 22:30 Caspofungin 50 mg/ Sodium Chloride 250 ml @ 250 mls/hr Q24H IVPB Last administered on 05/08/18 16:00; Admin Dose 250 MLS/HR; Start 05/07/18 at 16:00 Dextrose/Sodium Chloride 1,000 ml @ 75 mls/hr [id number] IV Last administered on 05/07/18 18:30; Admin Dose 75 MLS/HR; Start 05/06/18 at 16:00 Sodium Chloride (Nacl) 1 gm BID PO Last administered on 05/08/18 20:14; Admin Dose 1 GM; Start 05/06/18 at 21:30 Acetaminophen (Tylenol Tab) 650 mg Q6H PRN PO MILD PAIN(1-3)OR ELEVATED TEMP Last administered on 05/09/18 01:31; Admin Dose 650 MG; Start 05/06/18 at 21:30 Oseltamivir Phosphate (Tamiflu) 75 mg BID PO Last administered on 05/08/18 20:14; Admin Dose 75 MG; Start 05/07/18 at 11:00 Pantoprazole (Protonix Iv) 40 mg DAILY@06 IV Last administered on 3/9/19at 05:09; Admin Dose 40 MG; Start 05/08/18 at 06:00 Meropenem/Sodium Chloride 50 ml @ 100 mls/hr Q8 IVPB Last administered on 05/09/18 05:09; Admin Dose 100 MLS/HR; Start 05/08/18 at 14:00 Vancomycin HCl 1.25 gm/Sodium Chloride 250 ml @ 83.333 mls/ hr Q8H IVPB Last administered on 05/09/18 05:55; Admin Dose 83.333 MLS/HR; Start 05/08/18 at 21:00 VELIA CARBALLO May 09, 2018 06:28
[2018-05-09] MEDS: LEVOTHYROXINE 50 MCG TAB PO SCH (06:53)
[2018-05-09] MEDS: SODIUM CHLORIDE 1 GM TAB PO SCH ×2 (08:35→21:07)
[2018-05-09] MEDS: OSELTAMIVIR 75 MG CAP PO SCH (08:35)
[2018-05-09] MEDS: CALCIUM/VITAMIN D (500/200) TAB PO SCH (08:36)
[2018-05-09] MEDS: PYRIDOXINE 50 MG TAB PO SCH (08:36)
[2018-05-09] MEDS: DEXTROSE 5%-0.9% NACL 1,000 ML IV SCH (11:21)
--- NOTE | 2018-05-09 12:54 | CONS ---
Assessment/Plan Assessment/Plan Assessment/Plan (Daily) 1. 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 Sepsis 3. H/o metastatic colon CA on chemotherapy 4. H/o HTN 5. H/o HL 6. Dizziness Plan: Na improved to 130, continue Na chloride tablet 1gram PO BID - no labs today will follow up Consultation Date/Type/Reason Admit Date/Time May 05, 2018 at 12:31 Initial Consult Date 05/06/18 Type of Consult NEPHROLOGY Requesting Provider: TAHIR MCBRIDE Date/Time of Note DATE: 05/09/18 TIME: 12:54 Exam/Review of Systems Exam Vitals Vital Signs Date Temp Pulse Resp B/P (MAP) Pulse Ox O2 O2 Flow FiO2 Time Delivery Rate 05/09/18 66 12:00 05/09/18 98.4 19 128/72 97 11:36 (90) 05/08/18 Room Air 23:20 05/06/18 21 00:06 Intake and Output 05/08/18 05/08/18 05/09/18 1414:59 22:59 06:59 IntakeIntake Total 1050 ml OutputOutput Total 600 ml BalanceBalance 450 ml Results Result Diagram: 05/09/18 0656 05/08/18 0430 Results 24hrs Laboratory Tests Test 05/09/18 06:56 White Blood Count 3.8 L Red Blood Count 3.19 L Hemoglobin 10.6 L Hematocrit 30.2 L Mean Corpuscular Volume 94.7 Mean Corpuscular Hemoglobin 33.2 H Mean Corpuscular Hemoglobin Concent 35.1 Red Cell Distribution Width 15.6 H Platelet Count 143 # Mean Platelet Volume 10.8 H Immature Granulocytes % 0.800 H Neutrophils % 73.0 Lymphocytes % 11.8 L Monocytes % 13.6 H Eosinophils % 0.5 Basophils % 0.3 Nucleated Red Blood Cells % 0.0 Immature Granulocytes # 0.030 Neutrophils # 2.8 Lymphocytes # 0.5 L Monocytes # 0.5 Eosinophils # 0.0 Basophils # 0.0 Nucleated Red Blood Cells # 0.0 Medications Medication Current Medications Levothyroxine Sodium (Synthroid) 50 mcg BEFORE BREAKFAST PO Last administered on 05/09/18at 06:53; Admin Dose 50 MCG; Start 05/05/18 at 07:00 Pyridoxine HCl (Vitamin B6) 100 mg DAILY PO Last administered on 05/09/18 08:36; Admin Dose 100 MG; Start 05/05/18 at 09:00 Calcium/Vitamin D (Oyster Shell/ Vit-D (500/200)) 1 tab DAILY PO Last administered on 05/09/18 08:36; Admin Dose 1 TAB; Start 05/05/18 at 09:00 Atorvastatin Calcium (Lipitor) 80 mg DAILY@21 PO Last administered on 05/08/18 20:14; Admin Dose 80 MG; Start 05/05/18 at 21:00 IV Flush (NS 3 ml) 3 ml PER PROTOCOL IV ; Start 05/05/18 at 06:00 Ondansetron HCl (Zofran Inj) 4 mg Q6H PRN IV NAUSEA/VOMITING Last administered on 05/08/18 23:09; Admin Dose 4 MG; Start 05/05/18 at 06:00 Docusate Sodium (Colace) 100 mg Q12H PRN PO .CONSTIPATION; Start 05/05/18 at 06:00 Bisacodyl (Dulcolax) 5 mg DAILY PRN PO .CONSTIPATION; Start 05/05/18 at 06:00 Tamsulosin HCl (Flomax) 0.4 mg HS PO Last administered on 05/08/18 20:14; Admin Dose 0.4 MG; Start 05/05/18 at 21:00 Vancomycin HCl (Vanco Iv Per Pharmacy) VANCOMYCIN PER PHARMACY PER PROTOCOL XX ; Start 05/05/18 at 07:00 Albuterol/ Ipratropium (Duoneb) 3 ml Q4H RESP THERAPY PRN HHN SHORTNESS OF BREATH Last administered on 05/06/18 00:06; Admin Dose 3 ML; Start 05/05/18 at 22:30 Caspofungin 50 mg/ Sodium Chloride 250 ml @ 250 mls/hr Q24H IVPB Last administered on 05/08/18 16:00; Admin Dose 250 MLS/HR; Start 05/07/18 at 16:00 Sodium Chloride (Nacl) 1 gm BID PO Last administered on 05/09/18 08:35; Admin Dose 1 GM; Start 05/06/18 at 21:30 Acetaminophen (Tylenol Tab) 650 mg Q6H PRN PO MILD PAIN(1-3)OR ELEVATED TEMP Last administered on 3/9/19at 01:31; Admin Dose 650 MG; Start 05/06/18 at 21:30 Oseltamivir Phosphate (Tamiflu) 75 mg BID PO Last administered on 05/09/18at 08:35; Admin Dose 75 MG; Start 05/07/18 at 11:00 Pantoprazole (Protonix Iv) 40 mg DAILY@06 IV Last administered on 05/09/18at 05:09; Admin Dose 40 MG; Start 05/08/18 at 06:00 Meropenem/Sodium Chloride 50 ml @ 100 mls/hr Q8 IVPB Last administered on 05/09/18at 05:09; Admin Dose 100 MLS/HR; Start 05/08/18 at 14:00 Vancomycin HCl 1.25 gm/Sodium Chloride 250 ml @ 83.333 mls/ hr Q8H IVPB Last administered on 05/09/18at 05:55; Admin Dose 83.333 MLS/HR; Start 05/08/18 at 21:00 Miscellaneous Information (*Rx Drug Level Order Reminder*) VANCO TROUGH 05/09 2,000 ONCE ONCE XX ; Start 05/09/18 at 20:00; Stop 05/09/18 at 20:01 CHETAN NOVA MD May 09, 2018 12:54
--- NOTE | 2018-05-09 12:59 | CONS ---
Assessment/Plan Assessment/Plan Hospital Course (Demo Recall) Patient is alert looks much better and feels better family at bedside he is afebrile latest fever was yesterday morning at 7 AM 101.3. WBC 3.8 H&H 10.6 and 30.2 platelets 143 neutrophils 73 BUN 15 creatinine 0.73 Pro-calcitonin on admission was 1.79 lipase yesterday was 108 Antimicrobials: Vanco, meropenem, Cancidas, Tamiflu All cultures remain negative PHYSICAL EXAMINATION: GENERAL: This is a well-nourished, well-developed elderly man who is alert and looks comfortable HEENT: Head atraumatic, normocephalic. Sclerae anicteric. NECK: Supple. CHEST: Rise symmetrical. Breath sounds clear, diminished to bases. HEART: S1, S2. ABDOMEN: Soft, bowel tones present. EXTREMITIES: Without cyanosis. DIAGNOSTIC IMPRESSION: 1. Sepsis with ongoing high fevers, poss influenza, resolving 2. Metastatic colon cancer, status post resection. 3. Status post acute encephalopathy with history of brain mass and status post mass resection. 4. Pneumonitis. 5. Pancytopenia. Plan: Patient is doing much better, continue present care, complete course for influenza, will start tapering antibiotics soon Consultation Date/Type/Reason Admit Date/Time May 05, 2018 at 12:31 Initial Consult Date 05/06/18 Type of Consult id Requesting Provider: TAHIR MCBRIDE Date/Time of Note DATE: 05/09/18 TIME: 12:57 Exam/Review of Systems Exam Vitals Vital Signs Date Temp Pulse Resp B/P (MAP) Pulse Ox O2 O2 Flow FiO2 Time Delivery Rate 05/09/18 66 12:00 05/09/18 98.4 19 128/72 97 11:36 (90) 05/08/18 Room Air 23:20 05/06/18 21 00:06 Intake and Output 05/08/18 05/08/18 05/09/18 1515:00 23:00 07:00 IntakeIntake Total 1050 ml OutputOutput Total 600 ml BalanceBalance 450 ml Results Result Diagram: 05/09/18 0656 05/08/18 0430 Results 24hrs Laboratory Tests Test 05/09/18 06:56 White Blood Count 3.8 L Red Blood Count 3.19 L Hemoglobin 10.6 L Hematocrit 30.2 L Mean Corpuscular Volume 94.7 Mean Corpuscular Hemoglobin 33.2 H Mean Corpuscular Hemoglobin Concent 35.1 Red Cell Distribution Width 15.6 H Platelet Count 143 # Mean Platelet Volume 10.8 H Immature Granulocytes % 0.800 H Neutrophils % 73.0 Lymphocytes % 11.8 L Monocytes % 13.6 H Eosinophils % 0.5 Basophils % 0.3 Nucleated Red Blood Cells % 0.0 Immature Granulocytes # 0.030 Neutrophils # 2.8 Lymphocytes # 0.5 L Monocytes # 0.5 Eosinophils # 0.0 Basophils # 0.0 Nucleated Red Blood Cells # 0.0 Medications Medication Current Medications Levothyroxine Sodium (Synthroid) 50 mcg BEFORE BREAKFAST PO Last administered on 05/09/18 06:53; Admin Dose 50 MCG; Start 05/05/18 at 07:00 Pyridoxine HCl (Vitamin B6) 100 mg DAILY PO Last administered on 05/09/18 08:36; Admin Dose 100 MG; Start 05/05/18 at 09:00 Calcium/Vitamin D (Oyster Shell/ Vit-D (500/200)) 1 tab DAILY PO Last administered on 05/09/18 08:36; Admin Dose 1 TAB; Start 05/05/18 at 09:00 Atorvastatin Calcium (Lipitor) 80 mg DAILY@21 PO Last administered on 05/08/18 20:14; Admin Dose 80 MG; Start 05/05/18 at 21:00 IV Flush (NS 3 ml) 3 ml PER PROTOCOL IV ; Start 05/05/18 at 06:00 Ondansetron HCl (Zofran Inj) 4 mg Q6H PRN IV NAUSEA/VOMITING Last administered on 05/08/18 23:09; Admin Dose 4 MG; Start 05/05/18 at 06:00 Docusate Sodium (Colace) 100 mg Q12H PRN PO .CONSTIPATION; Start 05/05/18 at 06:00 Bisacodyl (Dulcolax) 5 mg DAILY PRN PO .CONSTIPATION; Start 05/05/18 at 06:00 Tamsulosin HCl (Flomax) 0.4 mg HS PO Last administered on 05/08/18 20:14; Admin Dose 0.4 MG; Start 05/05/18 at 21:00 Vancomycin HCl (Vanco Iv Per Pharmacy) VANCOMYCIN PER PHARMACY PER PROTOCOL XX ; Start 05/05/18 at 07:00 Albuterol/ Ipratropium (Duoneb) 3 ml Q4H RESP THERAPY PRN HHN SHORTNESS OF BREATH Last administered on 05/06/18 00:06; Admin Dose 3 ML; Start 05/05/18 at 22:30 Caspofungin 50 mg/ Sodium Chloride 250 ml @ 250 mls/hr Q24H IVPB Last admin istered on 05/08/18 16:00; Admin Dose 250 MLS/HR; Start 05/07/18 at 16:00 Sodium Chloride (Nacl) 1 gm BID PO Last administered on 05/09/18 08:35; Admin Dose 1 GM; Start 05/06/18 at 21:30 Acetaminophen (Tylenol Tab) 650 mg Q6H PRN PO MILD PAIN(1-3)OR ELEVATED TEMP Last administered on 05/09/18 01:31; Admin Dose 650 MG; Start 05/06/18 at 21:30 Oseltamivir Phosphate (Tamiflu) 75 mg BID PO Last administered on 05/09/18 08:35; Admin Dose 75 MG; Start 05/07/18 at 11:00 Pantoprazole (Protonix Iv) 40 mg DAILY@06 IV Last administered on 05/09/18 05:09; Admin Dose 40 MG; Start 05/08/18 at 06:00 Meropenem/Sodium Chloride 50 ml @ 100 mls/hr Q8 IVPB Last administered on 05/09/18 05:09; Admin Dose 100 MLS/HR; Start 05/08/18 at 14:00 Vancomycin HCl 1.25 gm/Sodium Chloride 250 ml @ 83.333 mls/ hr Q8H IVPB Last administered on 05/09/18 05:55; Admin Dose 83.333 MLS/HR; Start 05/08/18 at 21:00 Miscellaneous Information (*Rx Drug Level Order Reminder*) VANCO TROUGH 05/09 2,000 ONCE ONCE XX ; Start 05/09/18 at 20:00; Stop 05/09/18 at 20:01 ALISHA MISHRA NP May 09, 2018 12:59
[2018-05-09] MEDS ORDERED: KETOROLAC 15 MG INJ IV STA (13:38)
--- NOTE | 2018-05-09 13:42 | CONS ---
Assessment/Plan Assessment/Plan Assessment/Plan (Daily) #STAGE IV Colon Cancer -mets to brain, liver and lung mets -last CT Chest done during this admission demonstrates no evidence of pulmonary mets. -Brain MRI shows no evidence of intracranial disease - patient is currently responding to his current treatment of Xeliri / Avastin -given his weakness/sepsis; patient may be not a good candidate for this therapy -needs FU with oncologist once discharged -if he has progressed, his primary oncologist may consider Lonsurf vs Stivarga #confusion -improving -Nain MRI NEG #Sepsis -continue IV vancomycin and Zosyn -blood cultures pending -appreciate ID recs Patient seen in collaboration with Dr Flores. Consultation Date/Type/Reason Admit Date/Time May 05, 2018 at 12:31 Initial Consult Date 05/06/18 Type of Consult ONCOLOGY Reason for Consultation Colon Cancer Requesting Provider: TAHIR MCBRIDE Date/Time of Note DATE: 05/09/18 TIME: 13:35 24 HR Interval Summary Free Text/Dictation Resting in bed c/o headache family at bed side- all Qs answered no new issues reported last night per staff Detailed Summary Eyes: no complaints ENT: no complaints Respiratory: no complaints Cardiovascular: no complaints Gastrointestinal: no complaints Genitourinary: no complaints Musculoskeletal: other (c/o weakness) Neurologic: headache Exam/Review of Systems Exam Vitals Vital Signs Date Temp Pulse Resp B/P (MAP) Pulse Ox O2 O2 Flow FiO2 Time Delivery Rate 05/09/18 66 12:00 05/09/18 98.4 19 128/72 97 11:36 (90) 05/08/18 Room Air 23:20 05/06/18 21 00:06 Intake and Output 05/08/18 05/08/18 05/09/18 1515:00 23:00 07:00 IntakeIntake Total 1050 ml OutputOutput Total 600 ml BalanceBalance 450 ml Constitutional: alert, well developed Psych: nl mood/affect Eyes: nl lids, nl sclera ENMT: nl external ears & nose Neck: non-tender Respiratory: diminished breath sounds Cardiovascular: nl pulses Gastrointestinal: soft, non-tender Musculoskeletal: muscle weakness Extremities: normal pulses Neurological: nl speech, other (alert/responsive) Skin: nl turgor Lymph: nl lymph nodes Results Result Diagram: 05/09/18 0656 05/08/18 0430 Results 24hrs Laboratory Tests Test 05/09/18 06:56 White Blood Count 3.8 L Red Blood Count 3.19 L Hemoglobin 10.6 L Hematocrit 30.2 L Mean Corpuscular Volume 94.7 Mean Corpuscular Hemoglobin 33.2 H Mean Corpuscular Hemoglobin Concent 35.1 Red Cell Distribution Width 15.6 H Platelet Count 143 # Mean Platelet Volume 10.8 H Immature Granulocytes % 0.800 H Neutrophils % 73.0 Lymphocytes % 11.8 L Monocytes % 13.6 H Eosinophils % 0.5 Basophils % 0.3 Nucleated Red Blood Cells % 0.0 Immature Granulocytes # 0.030 Neutrophils # 2.8 Lymphocytes # 0.5 L Monocytes # 0.5 Eosinophils # 0.0 Basophils # 0.0 Nucleated Red Blood Cells # 0.0 Medications Medication Current Medications Levothyroxine Sodium (Synthroid) 50 mcg BEFORE BREAKFAST PO Last administered on 05/09/18 06:53; Admin Dose 50 MCG; Start 05/05/18 at 07:00 Pyridoxine HCl (Vitamin B6) 100 mg DAILY PO Last administered on 05/09/18 08:36; Admin Dose 100 MG; Start 05/05/18 at 09:00 Calcium/Vitamin D (Oyster Shell/ Vit-D (500/200)) 1 tab DAILY PO Last administered on 05/09/18 08:36; Admin Dose 1 TAB; Start 05/05/18 at 09:00 Atorvastatin Calcium (Lipitor) 80 mg DAILY@21 PO Last administered on 05/08/18 20:14; Admin Dose 80 MG; Start 05/05/18 at 21:00 IV Flush (NS 3 ml) 3 ml PER PROTOCOL IV ; Start 05/05/18 at 06:00 Ondansetron HCl (Zofran Inj) 4 mg Q6H PRN IV NAUSEA/VOMITING Last administered on 05/08/18 23:09; Admin Dose 4 MG; Start 05/05/18 at 06:00 Docusate Sodium (Colace) 100 mg Q12H PRN PO .CONSTIPATION; Start 05/05/18 at 06:00 Bisacodyl (Dulcolax) 5 mg DAILY PRN PO .CONSTIPATION; Start 05/05/18 at 06:00 Tamsulosin HCl (Flomax) 0.4 mg HS PO Last administered on 05/08/18 20:14; Admin Dose 0.4 MG; Start 05/05/18 at 21:00 Vancomycin HCl (Vanco Iv Per Pharmacy) VANCOMYCIN PER PHARMACY PER PROTOCOL XX ; Start 05/05/18 at 07:00 Albuterol/ Ipratropium (Duoneb) 3 ml Q4H RESP THERAPY PRN HHN SHORTNESS OF BREATH Last administered on 05/06/18 00:06; Admin Dose 3 ML; Start 05/05/18 at 22:30 Caspofungin 50 mg/ Sodium Chloride 250 ml @ 250 mls/hr Q24H IVPB Last administered on 05/08/18 16:00; Admin Dose 250 MLS/HR; Start 05/07/18 at 16:00 Sodium Chloride (Nacl) 1 gm BID PO Last administered on 05/09/18 08:35; Admin Dose 1 GM; Start 05/06/18 at 21:30 Acetaminophen (Tylenol Tab) 650 mg Q6H PRN PO MILD PAIN(1-3)OR ELEVATED TEMP Last administered on 05/09/18 01:31; Admin Dose 650 MG; Start 05/06/18 at 21:30 Oseltamivir Phosphate (Tamiflu) 75 mg BID PO Last administered on 05/09/18 08:35; Admin Dose 75 MG; Start 05/07/18 at 11:00 Pantoprazole (Protonix Iv) 40 mg DAILY@06 IV Last administered on 05/09/18 05:09; Admin Dose 40 MG; Start 05/08/18 at 06:00 Meropenem/Sodium Chloride 50 ml @ 100 mls/hr Q8 IVPB Last administered on 05/09/18 13:29; Admin Dose 100 MLS/HR; Start 05/08/18 at 14:00 Vancomycin HCl 1.25 gm/Sodium Chloride 250 ml @ 83.333 mls/ hr Q8H IVPB Last administered on 05/09/18 05:55; Admin Dose 83.333 MLS/HR; Start 05/08/18 at 21:00 Miscellaneous Information (*Rx Drug Level Order Reminder*) VANCO TROUGH 05/09 2,000 ONCE ONCE XX ; Start 05/09/18 at 20:00; Stop 05/09/18 at 20:01 JERE MCDANIEL May 09, 2018 13:42
--- NOTE | 2018-05-09 14:28 | PN ---
Date/Time of Note Date/Time of Note DATE: 05/09/18 TIME: 14:25 Assessment/Plan VTE Prophylaxis Risk score (from Ns)>0 risk: 12 SCD applied (from Ns): Yes Pharmacological prophylaxis: heparin Lines/Catheters IV [facility] Type [facility]from [facility] Portacath Urinary Cath still in place: Yes Reason Cath still needed: urinary retention Assessment/Plan Hospital Course 62 yo male with stage IV colon cancer presented with sepsis Sepsis: - Unclear source but resolved with antibiotics - further abx per ID Colon cancer: - on treatment as outpatient, resume at discharge Hyponatremia: - Continue salt tabs - stop hypotonic fluids GIACOMO: - Resolving with volume expansion Encephelopathy: - No mets seen on MRI - s/p brain XRT - Unclear etiology PT/OT Discharge home, [facility] tomorrow Result Diagram: 05/09/18 0656 05/08/18 0430 Results 24hrs Laboratory Tests Test 05/09/18 06:56 White Blood Count 3.8 L Red Blood Count 3.19 L Hemoglobin 10.6 L Hematocrit 30.2 L Mean Corpuscular Volume 94.7 Mean Corpuscular Hemoglobin 33.2 H Mean Corpuscular Hemoglobin Concent 35.1 Red Cell Distribution Width 15.6 H Platelet Count 143 # Mean Platelet Volume 10.8 H Immature Granulocytes % 0.800 H Neutrophils % 73.0 Lymphocytes % 11.8 L Monocytes % 13.6 H Eosinophils % 0.5 Basophils % 0.3 Nucleated Red Blood Cells % 0.0 Immature Granulocytes # 0.030 Neutrophils # 2.8 Lymphocytes # 0.5 L Monocytes # 0.5 Eosinophils # 0.0 Basophils # 0.0 Nucleated Red Blood Cells # 0.0 Subjective 24 Hr Interval Summary Free Text/Dictation Sepsis resolved Complains of headacje Exam/Review of Systems Exam Vitals Vital Signs Date Temp Pulse Resp B/P (MAP) Pulse Ox O2 O2 Flow FiO2 Time Delivery Rate 05/09/18 66 12:00 05/09/18 98.4 19 128/72 97 11:36 (90) 05/08/18 Room Air 23:20 05/06/18 21 00:06 Intake and Output 05/08/18 05/08/18 05/09/18 1414:59 22:59 06:59 IntakeIntake Total 1050 ml OutputOutput Total 600 ml BalanceBalance 450 ml Exam Alert, disoriented x 2 Comfortably no distress RRR Breathing comfortably Soft nt nd Results Results 24hrs Laboratory Tests Test 05/09/18 06:56 White Blood Count 3.8 L Red Blood Count 3.19 L Hemoglobin 10.6 L Hematocrit 30.2 L Mean Corpuscular Volume 94.7 Mean Corpuscular Hemoglobin 33.2 H Mean Corpuscular Hemoglobin Concent 35.1 Red Cell Distribution Width 15.6 H Platelet Count 143 # Mean Platelet Volume 10.8 H Immature Granulocytes % 0.800 H Neutrophils % 73.0 Lymphocytes % 11.8 L Monocytes % 13.6 H Eosinophils % 0.5 Basophils % 0.3 Nucleated Red Blood Cells % 0.0 Immature Granulocytes # 0.030 Neutrophils # 2.8 Lymphocytes # 0.5 L Monocytes # 0.5 Eosinophils # 0.0 Basophils # 0.0 Nucleated Red Blood Cells # 0.0 Medications Medication Current Medications Levothyroxine Sodium (Synthroid) 50 mcg BEFORE BREAKFAST PO Last administered on 05/09/18 06:53; Admin Dose 50 MCG; Start 05/05/18 at 07:00 Pyridoxine HCl (Vitamin B6) 100 mg DAILY PO Last administered on 05/09/18at 08:36; Admin Dose 100 MG; Start 05/05/18 at 09:00 Calcium/Vitamin D (Oyster Shell/ Vit-D (500/200)) 1 tab DAILY PO Last administered on 05/09/18at 08:36; Admin Dose 1 TAB; Start 05/05/18 at 09:00 Atorvastatin Calcium (Lipitor) 80 mg DAILY@21 PO Last administered on 05/08/18at 20:14; Admin Dose 80 MG; Start 05/05/18 at 21:00 IV Flush (NS 3 ml) 3 ml PER PROTOCOL IV ; Start 05/05/18 at 06:00 Ondansetron HCl (Zofran Inj) 4 mg Q6H PRN IV NAUSEA/VOMITING Last administered on 05/08/18at 23:09; Admin Dose 4 MG; Start 05/05/18 at 06:00 Docusate Sodium (Colace) 100 mg Q12H PRN PO .CONSTIPATION; Start 05/05/18 at 06:00 Bisacodyl (Dulcolax) 5 mg DAILY PRN PO .CONSTIPATION; Start 05/05/18 at 06:00 Tamsulosin HCl (Flomax) 0.4 mg HS PO Last administered on 05/08/18 20:14; Admin Dose 0.4 MG; Start 05/05/18 at 21:00 Vancomycin HCl (Vanco Iv Per Pharmacy) VANCOMYCIN PER PHARMACY PER PROTOCOL XX ; Start 05/05/18 at 07:00 Albuterol/ Ipratropium (Duoneb) 3 ml Q4H RESP THERAPY PRN HHN SHORTNESS OF BREATH Last administered on 05/06/18 00:06; Admin Dose 3 ML; Start 05/05/18 at 22:30 Caspofungin 50 mg/ Sodium Chloride 250 ml @ 250 mls/hr Q24H IVPB Last administered on 05/08/18 16:00; Admin Dose 250 MLS/HR; Start 05/07/18 at 16:00 Sodium Chloride (Nacl) 1 gm BID PO Last administered on 05/09/18 08:35; Admin Dose 1 GM; Start 05/06/18 at 21:30 Acetaminophen (Tylenol Tab) 650 mg Q6H PRN PO MILD PAIN(1-3)OR ELEVATED TEMP Last administered on 05/09/18 01:31; Admin Dose 650 MG; Start 05/06/18 at 21:30 Oseltamivir Phosphate (Tamiflu) 75 mg BID PO Last administered on 05/09/18 08:35; Admin Dose 75 MG; Start 05/07/18 at 11:00 Pantoprazole (Protonix Iv) 40 mg DAILY@06 IV Last administered on 05/09/18 05:09; Admin Dose 40 MG; Start 05/08/18 at 06:00 Meropenem/Sodium Chloride 50 ml @ 100 mls/hr Q8 IVPB Last administered on 05/09/18 13:29; Admin Dose 100 MLS/HR; Start 05/08/18 at 14:00 Vancomycin HCl 1.25 gm/Sodium Chloride 250 ml @ 83.333 mls/ hr Q8H IVPB Last administered on 05/09/18 05:55; Admin Dose 83.333 MLS/HR; Start 05/08/18 at 21:00 Miscellaneous Information (*Rx Drug Level Order Reminder*) VANCO TROUGH 05/09 2,000 ONCE ONCE XX ; Start 05/09/18 at 20:00; Stop 05/09/18 at 20:01 MALOU PENNINGTON MD May 09, 2018 14:28
[2018-05-09] MEDS: CASPOFUNGIN 50 MG in SOD CHLORIDE 0.9% 250 ML IVPB SCH (18:08)
[2018-05-09] MEDS: TAMSULOSIN (SR) 0.4 MG CAP PO SCH (21:07)
[2018-05-10] VITALS (10 sets, daily range): BP systolic 133–146; BP diastolic 73–98; PULSE 64–94; RESP 18–22
[2018-05-10] MEDS ORDERED: SOD CHLORIDE 0.9% 500 ML IV ONE (03:30)
[2018-05-10] MEDS ORDERED: HALOPERIDOL 5 MG INJ IM ONE ×2 (05:30→18:30)
[2018-05-10] MEDS: LEVOTHYROXINE 50 MCG TAB PO SCH (06:36)
[2018-05-10] MEDS: PANTOPRAZOLE 40 MG INJ IV SCH (06:36)
[2018-05-10] MEDS: MEROPENEM 1 GM/50ML(PMX) 50 ML IVPB SCH ×3 (06:36→22:18)
[2018-05-10] MEDS: PYRIDOXINE 50 MG TAB PO SCH (09:07)
[2018-05-10] MEDS: SODIUM CHLORIDE 1 GM TAB PO SCH ×2 (09:07→20:25)
[2018-05-10] MEDS: ALBUTEROL/IPRATROPIUM (NEB) 3 ML AMP HHN PRN ×2 (10:52→18:00)
--- NOTE | 2018-05-10 11:29 | CONS ---
Consultation Date/Type/Reason Admit Date/Time May 05, 2018 at 12:31 Initial Consult Date SUBJECTIVE: Patient is awake, alert, afebrile. VS: Stable. T: 98.3 LABS: Reviewed. WBC- 6.6. Improving. Antimicrobials: Vanco, meropenem, Cancidas, Tamiflu All cultures remain negative PHYSICAL EXAMINATION: GENERAL: This is a well-nourished, well-developed elderly man who is alert and looks comfortable HEENT: Head atraumatic, normocephalic. Sclerae anicteric. NECK: Supple. CHEST: Rise symmetrical. Breath sounds clear, diminished to bases. HEART: S1, S2. ABDOMEN: Soft, bowel tones present. EXTREMITIES: Without cyanosis. DIAGNOSTIC IMPRESSION: 1. Sepsis with ongoing high fevers, poss influenza, resolving 2. Metastatic colon cancer, status post resection. 3. Status post acute encephalopathy with history of brain mass and status post mass resection. 4. Pneumonitis. 5. Pancytopenia. Plan: Patient is improving. Vanco was D/C. Continue present care. Cagle was removed. Bladder scan today. Complete course for influenza. Requesting Provider: TAHIR MCBRIDE Date/Time of Note DATE: 05/10/18 TIME: 11:23 Exam/Review of Systems Exam Vitals Vital Signs Date Temp Pulse Resp B/P (MAP) Pulse Ox O2 O2 Flow FiO2 Time Delivery Rate 05/10/18 96 21 10:57 05/10/18 82 24 10:55 05/10/18 98.3 142/83 08:08 (102) 05/10/18 2.0 05:02 05/08/18 Room Air 23:20 Intake and Output 05/09/18 05/09/18 05/10/18 1515:00 23:00 07:00 IntakeIntake Total 450 ml 900 ml 50 ml OutputOutput Total 800 ml BalanceBalance 450 ml 100 ml 50 ml Results Result Diagram: 05/10/18 0654 05/10/18 0654 Results 24hrs Laboratory Tests Test 05/10/18 04:37 05/10/18 06:54 Blood Gas Specimen Source Blood arterial Arterial Blood Date Drawn 05/10/2018 4:40:22 AM Arterial Blood pH (Temp corrected) 7.431 Arterial Blood pCO2 (Temp correct) 30.1 L Arterial Blood pO2 (Temp corrected) 99.8 Arterial Blood HCO3 19.6 L Arterial Blood Base Excess -3.7 L Arterial Blood Oxygen Saturation 96.7 Karsten Test ACCEPTAB Arterial Blood Gas Puncture Site Left Radial Arterial Blood Carboxyhemoglobin 0.1 Arterial Blood Methemoglobin 0.3 Blood Gas A-a O2 Differential 57.1 H Oxyhemoglobin Percent 96.3 Blood Gas Temperature 37.0 Blood Gas Actual Respiration Rate 26 Blood Gas Modality NASAL CANNULA FiO2 27.0 Blood Gas Notified Whom Laureen MC RCP Blood Gas Notified Time 05/10/2018 4:50:43 AM White Blood Count 6.6 # Red Blood Count 3.43 L Hemoglobin 11.3 L Hematocrit 31.9 L Mean Corpuscular Volume 93.0 Mean Corpuscular Hemoglobin 32.9 Mean Corpuscular Hemoglobin Concent 35.4 Red Cell Distribution Width 15.8 H Platelet Count 189 # Mean Platelet Volume 10.5 H Immature Granulocytes % 1.100 H Neutrophils % 83.7 H Lymphocytes % 5.0 L Monocytes % 9.7 Eosinophils % 0.2 Basophils % 0.3 Nucleated Red Blood Cells % 0.0 Immature Granulocytes # 0.070 H Neutrophils # 5.5 Lymphocytes # 0.3 L Monocytes # 0.6 Eosinophils # 0.0 Basophils # 0.0 Nucleated Red Blood Cells # 0.0 Sodium Level 131 L Potassium Level 3.1 L Chloride Level 100 Carbon Dioxide Level 22 Anion Gap 9 Blood Urea Nitrogen 13 Creatinine 0.62 Est Glomerular Filtrat Rate mL/min > 60 Glucose Level 116 Calcium Level 7.9 L Magnesium Level 1.9 Total Bilirubin 0.7 Direct Bilirubin 0.00 Indirect Bilirubin 0.7 Aspartate Amino Transf (AST/SGOT) 84 H Alanine Aminotransferase (ALT/SGPT) 74 H Alkaline Phosphatase 100 Total Protein 5.1 L Albumin 2.6 L Globulin 2.50 Albumin/Globulin Ratio 1.04 Medications Medication Current Medications Levothyroxine Sodium (Synthroid) 50 mcg BEFORE BREAKFAST PO Last administered on 05/10/18at 06:36; Admin Dose 50 MCG; Start 05/05/18 at 07:00 Pyridoxine HCl (Vitamin B6) 100 mg DAILY PO Last administered on 05/10/18at 09:07; Admin Dose 100 MG; Start 05/05/18 at 09:00 IV Flush (NS 3 ml) 3 ml PER PROTOCOL IV ; Start 05/05/18 at 06:00 Ondansetron HCl (Zofran Inj) 4 mg Q6H PRN IV NAUSEA/VOMITING Last administered on 05/08/18 23:09; Admin Dose 4 MG; Start 05/05/18 at 06:00 Bisacodyl (Dulcolax) 5 mg DAILY PRN PO .CONSTIPATION; Start 05/05/18 at 06:00 Tamsulosin HCl (Flomax) 0.4 mg HS PO Last administered on 05/09/18 21:07; Admin Dose 0.4 MG; Start 05/05/18 at 21:00 Albuterol/ Ipratropium (Duoneb) 3 ml Q4H RESP THERAPY PRN HHN SHORTNESS OF BREATH Last administered on 05/10/18 10:52; Admin Dose 3 ML; Start 05/05/18 at 22:30 Sodium Chloride (Nacl) 1 gm BID PO Last administered on 05/10/18 09:07; Admin Dose 1 GM; Start 05/06/18 at 21:30 Acetaminophen (Tylenol Tab) 650 mg Q6H PRN PO MILD PAIN(1-3)OR ELEVATED TEMP Last administered on 05/09/18 21:17; Admin Dose 650 MG; Start 05/06/18 at 21:30 Pantoprazole (Protonix Iv) 40 mg DAILY@06 IV Last administered on 05/10/18 06:36; Admin Dose 40 MG; Start 05/08/18 at 06:00 Meropenem/Sodium Chloride 50 ml @ 100 mls/hr Q8 IVPB Last administered on 05/10/18 06:36; Admin Dose 100 MLS/HR; Start 05/08/18 at 14:00 Oseltamivir Phosphate (Tamiflu) 75 mg BID PO ; Start 05/10/18 at 21:00 RENETTA MCGEE May 10, 2018 11:29
--- NOTE | 2018-05-10 15:36 | PN ---
Date/Time of Note Date/Time of Note DATE: 05/10/18 TIME: 15:35 Assessment/Plan VTE [place] [facility] [place]: 14 [place] [facility] [place] Yes Pharmacological prophylaxis: heparin Lines/Catheters IV [facility]from [facility] Port a cath Urinary Cath still in place: No Assessment/Plan Hospital Course 62 yo male with stage IV colon cancer presented with sepsis Sepsis: - Unclear source but resolved with antibiotics - further abx per ID Colon cancer: - on treatment as outpatient, resume at discharge Hyponatremia: - Continue salt tabs - stop hypotonic fluids GIACOMO: - Resolving with volume expansion Encephelopathy: - No mets seen on MRI - s/p brain XRT - Unclear etiology PT/OT Ready for discharge, however family uncomfortable taking him home as he is debilitated. Can go home with PT/OT services or else MARK Result Diagram: 05/10/18 0654 05/10/18 0654 Results 24hrs Laboratory Tests Test 05/10/18 04:37 05/10/18 06:54 Blood Gas Specimen Source Blood arterial Arterial Blood Date Drawn 05/10/2018 4:40:22 AM Arterial Blood pH (Temp corrected) 7.431 Arterial Blood pCO2 (Temp correct) 30.1 L Arterial Blood pO2 (Temp corrected) 99.8 Arterial Blood HCO3 19.6 L Arterial Blood Base Excess -3.7 L Arterial Blood Oxygen Saturation 96.7 Karsten Test ACCEPTAB Arterial Blood Gas Puncture Site Left Radial Arterial Blood Carboxyhemoglobin 0.1 Arterial Blood Methemoglobin 0.3 Blood Gas A-a O2 Differential 57.1 H Oxyhemoglobin Percent 96.3 Blood Gas Temperature 37.0 Blood Gas Actual Respiration Rate 26 Blood Gas Modality NASAL CANNULA FiO2 27.0 Blood Gas Notified Whom Laureen [facility] Blood Gas Notified Time 05/10/2018 4:50:43 AM White Blood Count 6.6 # Red Blood Count 3.43 L Hemoglobin 11.3 L Hematocrit 31.9 L Mean Corpuscular Volume 93.0 Mean Corpuscular Hemoglobin 32.9 Mean Corpuscular Hemoglobin Concent 35.4 Red Cell Distribution Width 15.8 H Platelet Count 189 # Mean Platelet Volume 10.5 H Immature Granulocytes % 1.100 H Neutrophils % 83.7 H Lymphocytes % 5.0 L Monocytes % 9.7 Eosinophils % 0.2 Basophils % 0.3 Nucleated Red Blood Cells % 0.0 Immature Granulocytes # 0.070 H Neutrophils # 5.5 Lymphocytes # 0.3 L Monocytes # 0.6 Eosinophils # 0.0 Basophils # 0.0 Nucleated Red Blood Cells # 0.0 Sodium Level 131 L Potassium Level 3.1 L Chloride Level 100 Carbon Dioxide Level 22 Anion Gap 9 Blood Urea Nitrogen 13 Creatinine 0.62 Est Glomerular Filtrat Rate mL/min > 60 Glucose Level 116 Calcium Level 7.9 L Magnesium Level 1.9 Total Bilirubin 0.7 Direct Bilirubin 0.00 Indirect Bilirubin 0.7 Aspartate Amino Transf (AST/SGOT) 84 H Alanine Aminotransferase (ALT/SGPT) 74 H Alkaline Phosphatase 100 Total Protein 5.1 L Albumin 2.6 L Globulin 2.50 Albumin/Globulin Ratio 1.04 Subjective 24 Hr Interval Summary Free Text/Dictation Sepsis has resolved Feeling better I offered discharge, lawugher is very worried about ability to take care of him at home. He is more weak and continues to have some confusion Exam/Review of Systems Exam Vitals Vital Signs Date Temp Pulse Resp B/P (MAP) Pulse Ox O2 O2 Flow FiO2 Time Delivery Rate 05/10/18 99.1 87 22 140/88 96 15:30 (105) 05/10/18 21 10:57 05/10/18 2.0 05:02 05/08/18 Room Air 23:20 Intake and Output 05/09/18 05/09/18 05/10/18 1515:00 23:00 07:00 IntakeIntake Total 450 ml 900 ml 50 ml OutputOutput Total 800 ml BalanceBalance 450 ml 100 ml 50 ml Constitutional: alert, oriented, well developed Psych: no complaints, nl mood/affect Head: normocephalic, atraumatic Eyes: nl conjunctiva, EOMI, nl lids, nl sclera, PERRL ENMT: nl external ears & nose, nl lips & teeth, nl nasal mucosa & septum Neck: supple, non-tender Respiratory: clear to auscultation, normal air movement Cardiovascular: regular rate and rhythm, nl pulses Gastrointestinal: soft, nl liver, spleen, non-tender Musculoskeletal: nl extremities to inspection, nl gait and stance Extremities: normal pulses Neurological: [employer] II-XII intact, nl mental status, nl speech, nl strength Skin: nl turgor; No rash or lesions Lymph: nl lymph nodes Results Results 24hrs Laboratory Tests Test 05/10/18 04:37 05/10/18 06:54 Blood Gas Specimen Source Blood arterial Arterial Blood Date Drawn 05/10/2018 4:40:22 AM Arterial Blood pH (Temp corrected) 7.431 Arterial Blood pCO2 (Temp correct) 30.1 L Arterial Blood pO2 (Temp corrected) 99.8 Arterial Blood HCO3 19.6 L Arterial Blood Base Excess -3.7 L Arterial Blood Oxygen Saturation 96.7 Karsten Test ACCEPTAB Arterial Blood Gas Puncture Site Left Radial Arterial Blood Carboxyhemoglobin 0.1 Arterial Blood Methemoglobin 0.3 Blood Gas A-a O2 Differential 57.1 H Oxyhemoglobin Percent 96.3 Blood Gas Temperature 37.0 Blood Gas Actual Respiration Rate 26 Blood Gas Modality NASAL CANNULA FiO2 27.0 Blood Gas Notified Jean-Paul MC RCP Blood Gas Notified Time 05/10/2018 4:50:43 AM White Blood Count 6.6 # Red Blood Count 3.43 L Hemoglobin 11.3 L Hematocrit 31.9 L Mean Corpuscular Volume 93.0 Mean Corpuscular Hemoglobin 32.9 Mean Corpuscular Hemoglobin Concent 35.4 Red Cell Distribution Width 15.8 H Platelet Count 189 # Mean Platelet Volume 10.5 H Immature Granulocytes % 1.100 H Neutrophils % 83.7 H Lymphocytes % 5.0 L Monocytes % 9.7 Eosinophils % 0.2 Basophils % 0.3 Nucleated Red Blood Cells % 0.0 Immature Granulocytes # 0.070 H Neutrophils # 5.5 Lymphocytes # 0.3 L Monocytes # 0.6 Eosinophils # 0.0 Basophils # 0.0 Nucleated Red Blood Cells # 0.0 Sodium Level 131 L Potassium Level 3.1 L Chloride Level 100 Carbon Dioxide Level 22 Anion Gap 9 Blood Urea Nitrogen 13 Creatinine 0.62 Est Glomerular Filtrat Rate mL/min > 60 Glucose Level 116 Calcium Level 7.9 L Magnesium Level 1.9 Total Bilirubin 0.7 Direct Bilirubin 0.00 Indirect Bilirubin 0.7 Aspartate Amino Transf (AST/SGOT) 84 H Alanine Aminotransferase (ALT/SGPT) 74 H Alkaline Phosphatase 100 Total Protein 5.1 L Albumin 2.6 L Globulin 2.50 Albumin/Globulin Ratio 1.04 Medications Medication Current Medications Levothyroxine Sodium (Synthroid) 50 mcg BEFORE BREAKFAST PO Last administered on 05/10/18at 06:36; Admin Dose 50 MCG; Start 05/05/18 at 07:00 Pyridoxine HCl (Vitamin B6) 100 mg DAILY PO Last administered on 05/10/18 09:07; Admin Dose 100 MG; Start 05/05/18 at 09:00 IV Flush (NS 3 ml) 3 ml PER PROTOCOL IV ; Start 05/05/18 at 06:00 Ondansetron HCl (Zofran Inj) 4 mg Q6H PRN IV NAUSEA/VOMITING Last administered on 05/08/18 23:09; Admin Dose 4 MG; Start 05/05/18 at 06:00 Bisacodyl (Dulcolax) 5 mg DAILY PRN PO .CONSTIPATION; Start 05/05/18 at 06:00 Tamsulosin HCl (Flomax) 0.4 mg HS PO Last administered on 05/09/18 21:07; Admin Dose 0.4 MG; Start 05/05/18 at 21:00 Albuterol/ Ipratropium (Duoneb) 3 ml Q4H RESP THERAPY PRN HHN SHORTNESS OF BREATH Last administered on 05/10/18 10:52; Admin Dose 3 ML; Start 05/05/18 at 22:30 Sodium Chloride (Nacl) 1 gm BID PO Last administered on 05/10/18 09:07; Admin Dose 1 GM; Start 05/06/18 at 21:30 Acetaminophen (Tylenol Tab) 650 mg Q6H PRN PO MILD PAIN(1-3)OR ELEVATED TEMP Last administered on 05/09/18 21:17; Admin Dose 650 MG; Start 05/06/18 at 21:30 Pantoprazole (Protonix Iv) 40 mg DAILY@06 IV Last administered on 05/10/18 06:36; Admin Dose 40 MG; Start 05/08/18 at 06:00 Meropenem/Sodium Chloride 50 ml @ 100 mls/hr Q8 IVPB Last administered on 05/10/18 14:21; Admin Dose 100 MLS/HR; Start 05/08/18 at 14:00 Oseltamivir Phosphate (Tamiflu) 75 mg BID PO ; Start 05/10/18 at 21:00 MALOU PENNINGTON MD May 10, 2018 15:36
--- NOTE | 2018-05-10 16:11 | CONS ---
Assessment/Plan Assessment/Plan Assessment/Plan (Daily) #STAGE IV Colon Cancer -mets to brain, liver and lung mets -last CT Chest done during this admission demonstrates no evidence of pulmonary mets. -Brain MRI shows no evidence of intracranial disease - patient is currently responding to his current treatment of Xeliri / Avastin -given his weakness/sepsis; patient may be not a good candidate for this therapy -needs FU with oncologist once discharged -if he has progressed, his primary oncologist may consider Lonsurf vs Stivarga #confusion -improving -Nain MRI NEG #Sepsis -continue IV vancomycin and Zosyn -blood cultures pending -appreciate ID recs # Acute Hypokaleia - replace per PMD Patient seen in collaboration with Dr Flores. Consultation Date/Type/Reason Admit Date/Time May 05, 2018 at 12:31 Initial Consult Date 05/06/18 Type of Consult ONCOLOGY Reason for Consultation METASTATIC COLON CANCER Requesting Provider: TAHIR MCBRIDE Date/Time of Note DATE: 05/10/18 TIME: 16:11 24 HR Interval Summary Free Text/Dictation Resting in bed confused family at bed side- all Qs answered no new issues reported last night per staff Constitutional: requiring IVF Exam/Review of Systems Exam Vitals Vital Signs Date Temp Pulse Resp B/P (MAP) Pulse Ox O2 O2 Flow FiO2 Time Delivery Rate 05/10/18 99.1 87 22 140/88 96 15:30 (105) 05/10/18 21 10:57 05/10/18 2.0 05:02 05/08/18 Room Air 23:20 Intake and Output 05/09/18 05/09/18 05/10/18 1515:00 23:00 07:00 IntakeIntake Total 450 ml 900 ml 50 ml OutputOutput Total 800 ml BalanceBalance 450 ml 100 ml 50 ml Constitutional: alert, well developed Psych: confusion Eyes: nl lids, nl sclera ENMT: nl external ears & nose Neck: non-tender Respiratory: diminished breath sounds (at bases bilaterally) Cardiovascular: nl pulses, other (s1s2) Gastrointestinal: soft, non-tender Musculoskeletal: nl extremities to inspection Extremities: normal pulses Neurological: nl speech, confused Skin: nl turgor Lymph: nontender Results Result Diagram: 05/10/18 0654 05/10/18 0654 Results 24hrs Laboratory Tests Test 05/10/18 04:37 05/10/18 06:54 Blood Gas Specimen Source Blood arterial Arterial Blood Date Drawn 05/10/2018 4:40:22 AM Arterial Blood pH (Temp corrected) 7.431 Arterial Blood pCO2 (Temp correct) 30.1 L Arterial Blood pO2 (Temp corrected) 99.8 Arterial Blood HCO3 19.6 L Arterial Blood Base Excess -3.7 L Arterial Blood Oxygen Saturation 96.7 Karsten Test ACCEPTAB Arterial Blood Gas Puncture Site Left Radial Arterial Blood Carboxyhemoglobin 0.1 Arterial Blood Methemoglobin 0.3 Blood Gas A-a O2 Differential 57.1 H Oxyhemoglobin Percent 96.3 Blood Gas Temperature 37.0 Blood Gas Actual Respiration Rate 26 Blood Gas Modality NASAL CANNULA FiO2 27.0 Blood Gas Notified Jean-Paul MC RCP Blood Gas Notified Time 05/10/2018 4:50:43 AM White Blood Count 6.6 # Red Blood Count 3.43 L Hemoglobin 11.3 L Hematocrit 31.9 L Mean Corpuscular Volume 93.0 Mean Corpuscular Hemoglobin 32.9 Mean Corpuscular Hemoglobin Concent 35.4 Red Cell Distribution Width 15.8 H Platelet Count 189 # Mean Platelet Volume 10.5 H Immature Granulocytes % 1.100 H Neutrophils % 83.7 H Lymphocytes % 5.0 L Monocytes % 9.7 Eosinophils % 0.2 Basophils % 0.3 Nucleated Red Blood Cells % 0.0 Immature Granulocytes # 0.070 H Neutrophils # 5.5 Lymphocytes # 0.3 L Monocytes # 0.6 Eosinophils # 0.0 Basophils # 0.0 Nucleated Red Blood Cells # 0.0 Sodium Level 131 L Potassium Level 3.1 L Chloride Level 100 Carbon Dioxide Level 22 Anion Gap 9 Blood Urea Nitrogen 13 Creatinine 0.62 Est Glomerular Filtrat Rate mL/min > 60 Glucose Level 116 Calcium Level 7.9 L Magnesium Level 1.9 Total Bilirubin 0.7 Direct Bilirubin 0.00 Indirect Bilirubin 0.7 Aspartate Amino Transf (AST/SGOT) 84 H Alanine Aminotransferase (ALT/SGPT) 74 H Alkaline Phosphatase 100 Total Protein 5.1 L Albumin 2.6 L Globulin 2.50 Albumin/Globulin Ratio 1.04 Medications Medication Current Medications Levothyroxine Sodium (Synthroid) 50 mcg BEFORE BREAKFAST PO Last administered on 05/10/18at 06:36; Admin Dose 50 MCG; Start 05/05/18 at 07:00 Pyridoxine HCl (Vitamin B6) 100 mg DAILY PO Last administered on 05/10/18 09:07; Admin Dose 100 MG; Start 05/05/18 at 09:00 IV Flush (NS 3 ml) 3 ml PER PROTOCOL IV ; Start 05/05/18 at 06:00 Ondansetron HCl (Zofran Inj) 4 mg Q6H PRN IV NAUSEA/VOMITING Last administered on 05/08/18 23:09; Admin Dose 4 MG; Start 05/05/18 at 06:00 Bisacodyl (Dulcolax) 5 mg DAILY PRN PO .CONSTIPATION; Start 05/05/18 at 06:00 Tamsulosin HCl (Flomax) 0.4 mg HS PO Last administered on 05/09/18 21:07; Admin Dose 0.4 MG; Start 05/05/18 at 21:00 Albuterol/ Ipratropium (Duoneb) 3 ml Q4H RESP THERAPY PRN HHN SHORTNESS OF BREATH Last administered on 05/10/18 10:52; Admin Dose 3 ML; Start 05/05/18 at 22:30 Sodium Chloride (Nacl) 1 gm BID PO Last administered on 05/10/18 09:07; Admin Dose 1 GM; Start 05/06/18 at 21:30 Acetaminophen (Tylenol Tab) 650 mg Q6H PRN PO MILD PAIN(1-3)OR ELEVATED TEMP Last administered on 05/09/18 21:17; Admin Dose 650 MG; Start 05/06/18 at 21:30 Pantoprazole (Protonix Iv) 40 mg DAILY@06 IV Last administered on 05/10/18 06:36; Admin Dose 40 MG; Start 05/08/18 at 06:00 Meropenem/Sodium Chloride 50 ml @ 100 mls/hr Q8 IVPB Last administered on 05/10 14:21; Admin Dose 100 MLS/HR; Start 05/08/18 at 14:00 Oseltamivir Phosphate (Tamiflu) 75 mg BID PO ; Start 05/10/18 at 21:00 JERE MCDANIEL May 10, 2018 16:11
[2018-05-10] MEDS: ONDANSETRON 4 MG INJ IV PRN (20:18)
[2018-05-10] MEDS: TAMSULOSIN (SR) 0.4 MG CAP PO SCH (20:25)
[2018-05-10] MEDS: OSELTAMIVIR 75 MG CAP PO SCH (20:25)
[2018-05-11] VITALS (12 sets, daily range): BP systolic 120–154; BP diastolic 75–87; PULSE 65–96; RESP 18–22
[2018-05-11] MEDS: ALBUTEROL/IPRATROPIUM (NEB) 3 ML AMP HHN PRN (02:05)
[2018-05-11] MEDS: MEROPENEM 1 GM/50ML(PMX) 50 ML IVPB SCH (07:10)
[2018-05-11] MEDS: BENZOCAINE 10% 7 GM GEL MM SCH ×3 (07:10→21:11)
[2018-05-11] MEDS: PANTOPRAZOLE 40 MG INJ IV SCH (07:10)
[2018-05-11] MEDS: LEVOTHYROXINE 50 MCG TAB PO SCH (07:10)
[2018-05-11] MEDS: SODIUM CHLORIDE 1 GM TAB PO SCH ×2 (08:44→21:10)
[2018-05-11] MEDS: PYRIDOXINE 50 MG TAB PO SCH (08:45)
[2018-05-11] MEDS: OSELTAMIVIR 75 MG CAP PO SCH ×2 (08:57→21:10)
[2018-05-11] MEDS ORDERED: POTASSIUM CHLORIDE (SR) 20 MEQ TAB PO STA (10:03)
--- NOTE | 2018-05-11 10:43 | CONS ---
Assessment/Plan Assessment/Plan Hospital Course (Demo Recall) #STAGE IV Colon Cancer -pt has known mets to brain, liver and lung mets -last CT Chest done during this admission demonstrates no evidence of pulmonary mets. Brain MRI shows no evidence of intracranial disease -thus it is likely that patient is currently responding to his current treatment of Xeliri / Avastin -still he appears very weak and it is questionable it he is even able to tolerate this therapy -this will have ot be re-addressed by his oncologist once he is discharged and free of infection -if he has progressed, his primary oncologist may consider Lonsurf vs Stivarga #confusion -improving -Nain MRI MARÍA #Sepsis -possibly 2/2 influenza -on tamiflu -continue meropenem per ID Consultation Date/Type/Reason Admit Date/Time May 05, 2018 at 12:31 Initial Consult Date 05/05/18 Type of Consult oncology Reason for Consultation metastatic colon cancer Requesting Provider: TAHIR MCBRIDE Date/Time of Note DATE: 05/11/18 TIME: 10:40 24 HR Interval Summary Free Text/Dictation still lethargic. poor po intake Exam/Review of Systems Exam Vitals Vital Signs Date Temp Pulse Resp B/P (MAP) Pulse Ox O2 O2 Flow FiO2 Time Delivery Rate 05/11/18 78 08:48 05/11/18 98.5 18 141/80 97 08:03 (100) 05/11/18 Nasal 2.0 02:05 Cannula 05/10/18 21 10:57 Intake and Output 05/10/18 05/10/18 05/11/18 1414:59 22:59 06:59 IntakeIntake Total 750 ml 500 ml 500 ml BalanceBalance 750 ml 500 ml 500 ml Constitutional: alert, oriented, distress, frail Psych: anxiety, depression Head: normocephalic Eyes: nl conjunctiva ENMT: nl external ears & nose Neck: supple Respiratory: clear to auscultation Cardiovascular: regular rate and rhythm Gastrointestinal: soft Musculoskeletal: nl extremities to inspection Results Result Diagram: 05/10/18 0654 05/11/18 0657 Results 24hrs Laboratory Tests Test 05/11/18 06:57 Sodium Level 128 L Potassium Level 3.1 L Chloride Level 97 Carbon Dioxide Level 22 Anion Gap 9 Blood Urea Nitrogen 12 Creatinine 0.60 L Est Glomerular Filtrat Rate mL/min > 60 Glucose Level 116 Calcium Level 7.8 L Medications Medication Current Medications Levothyroxine Sodium (Synthroid) 50 mcg BEFORE BREAKFAST PO Last administered on 05/11/18 07:10; Admin Dose 50 MCG; Start 05/05/18 at 07:00 Pyridoxine HCl (Vitamin B6) 100 mg DAILY PO Last administered on 05/11/18 08:45; Admin Dose 100 MG; Start 05/05/18 at 09:00 IV Flush (NS 3 ml) 3 ml PER PROTOCOL IV ; Start 05/05/18 at 06:00 Ondansetron HCl (Zofran Inj) 4 mg Q6H PRN IV NAUSEA/VOMITING Last administered on 05/10/18 20:18; Admin Dose 4 MG; Start 05/05/18 at 06:00 Bisacodyl (Dulcolax) 5 mg DAILY PRN PO .CONSTIPATION; Start 05/05/18 at 06:00 Tamsulosin HCl (Flomax) 0.4 mg HS PO Last administered on 05/10/18 20:25; Admin Dose 0.4 MG; Start 05/05/18 at 21:00 Albuterol/ Ipratropium (Duoneb) 3 ml Q4H RESP THERAPY PRN HHN SHORTNESS OF BREATH Last administered on 05/11/18 02:05; Admin Dose 3 ML; Start 05/05/18 at 22:30 Sodium Chloride (Nacl) 1 gm BID PO Last administered on 05/11/18 08:44; Admin Dose 1 GM; Start 05/06/18 at 21:30 Acetaminophen (Tylenol Tab) 650 mg Q6H PRN PO MILD PAIN(1-3)OR ELEVATED TEMP Last administered on 05/09/18 21:17; Admin Dose 650 MG; Start 05/06/18 at 21:30 Pantoprazole (Protonix Iv) 40 mg DAILY@06 IV Last administered on 05/11/18 07:10; Admin Dose 40 MG; Start 05/08/18 at 06:00 Meropenem/Sodium Chloride 50 ml @ 100 mls/hr Q8 IVPB Last administered on 05/11/18 07:10; Admin Dose 100 MLS/HR; Start 05/08/18 at 14:00 Oseltamivir Phosphate (Tamiflu) 75 mg BID PO Last administered on 3/11/19at 08:57; Admin Dose 75 MG; Start 05/10/18 at 21:00 Benzocaine (Orajel) 1 applic BID MM Last administered on 05/11/18at 08:45; Admin Dose 1 APPLIC; Start 05/11/18 at 01:30 Lactulose (Enulose) 20 gm Q8 PO ; Start 05/11/18 at 14:00; Status CARIDAD MIRAMONTES M.D. May 11, 2018 10:43
--- NOTE | 2018-05-11 10:46 | CONS ---
Assessment/Plan Assessment/Plan Assessment/Plan (Daily) 1. 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 Sepsis 3. H/o metastatic colon CA on chemotherapy 4. H/o HTN 5. H/o HL 6. Dizziness 7. Hypokalemia Plan: Na dropped to 128, K 3.1 continue Na chloride tablet 1gram PO BID K replacement has been ordered for today will follow up Consultation Date/Type/Reason Admit Date/Time May 05, 2018 at 12:31 Initial Consult Date 05/06/18 Type of Consult NEPHROLOGY Requesting Provider: TAHIR MCBRIDE Date/Time of Note DATE: 05/11/18 TIME: 10:45 Exam/Review of Systems Exam Vitals Vital Signs Date Temp Pulse Resp B/P (MAP) Pulse Ox O2 O2 Flow FiO2 Time Delivery Rate 05/11/18 78 08:48 05/11/18 98.5 18 141/80 97 08:03 (100) 05/11/18 Nasal 2.0 02:05 Cannula 05/10/18 21 10:57 Intake and Output 05/10/18 05/10/18 05/11/18 1414:59 22:59 06:59 IntakeIntake Total 750 ml 500 ml 500 ml BalanceBalance 750 ml 500 ml 500 ml Exam Constitutional: alert Respiratory: clear to auscultation, congested cough, diminished breath sounds Cardiovascular: regular rate and rhythm, nl pulses Gastrointestinal: soft, non-tender Musculoskeletal: nl extremities to inspection Extremities: normal pulses 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, nl mental status, nl speech, nl strength Results Result Diagram: 05/10/18 0654 05/11/18 0657 Results 24hrs Laboratory Tests Test 05/11/18 06:57 Sodium Level 128 L Potassium Level 3.1 L Chloride Level 97 Carbon Dioxide Level 22 Anion Gap 9 Blood Urea Nitrogen 12 Creatinine 0.60 L Est Glomerular Filtrat Rate mL/min > 60 Glucose Level 116 Calcium Level 7.8 L Medications Medication Current Medications Levothyroxine Sodium (Synthroid) 50 mcg BEFORE BREAKFAST PO Last administered on 05/11/18at 07:10; Admin Dose 50 MCG; Start 05/05/18 at 07:00 Pyridoxine HCl (Vitamin B6) 100 mg DAILY PO Last administered on 05/11/18at 08:45; Admin Dose 100 MG; Start 05/05/18 at 09:00 IV Flush (NS 3 ml) 3 ml PER PROTOCOL IV ; Start 05/05/18 at 06:00 Ondansetron HCl (Zofran Inj) 4 mg Q6H PRN IV NAUSEA/VOMITING Last administered on 05/10/18 20:18; Admin Dose 4 MG; Start 05/05/18 at 06:00 Bisacodyl (Dulcolax) 5 mg DAILY PRN PO .CONSTIPATION; Start 05/05/18 at 06:00 Tamsulosin HCl (Flomax) 0.4 mg HS PO Last administered on 05/10/18 20:25; Admin Dose 0.4 MG; Start 05/05/18 at 21:00 Albuterol/ Ipratropium (Duoneb) 3 ml Q4H RESP THERAPY PRN HHN SHORTNESS OF [place] ATH Last administered on 05/11/18 02:05; Admin Dose 3 ML; Start 05/05/18 at 22:30 Sodium Chloride (Nacl) 1 gm BID PO Last administered on 05/11/18 08:44; Admin Dose 1 GM; Start 05/06/18 at 21:30 Acetaminophen (Tylenol Tab) 650 mg Q6H PRN PO MILD PAIN(1-3)OR ELEVATED TEMP Last administered on 05/09/18 21:17; Admin Dose 650 MG; Start 05/06/18 at 21:30 Pantoprazole (Protonix Iv) 40 mg DAILY@06 IV Last administered on 05/11/18 07:10; Admin Dose 40 MG; Start 05/08/18 at 06:00 Meropenem/Sodium Chloride 50 ml @ 100 mls/hr Q8 IVPB Last administered on 05/11/18 07:10; Admin Dose 100 MLS/HR; Start 05/08/18 at 14:00 Oseltamivir Phosphate (Tamiflu) 75 mg BID PO Last administered on 05/11/18 08:57; Admin Dose 75 MG; Start 05/10/18 at 21:00 Benzocaine (Orajel) 1 applic BID MM Last administered on 05/11/18 08:45; Admin Dose 1 APPLIC; Start 05/11/18 at 01:30 Lactulose (Enulose) 20 gm Q8 PO ; Start 05/11/18 at 14:00; Status CHETAN WINTERS MD 11, 2019 10:46
--- NOTE | 2018-05-11 12:26 | CONS ---
Assessment/Plan Assessment/Plan Hospital Course (Demo Recall) No acute events overnight patient remains afebrile in no distress per report had loose stools since yesterday, no labs this morning Antimicrobials: Patient remains on meropenem and Tamiflu All cultures remain negative PHYSICAL EXAMINATION: GENERAL: This is a well-nourished, well-developed elderly man who looks comfortable HEENT: Head atraumatic, normocephalic. Sclerae anicteric. NECK: Supple. CHEST: Rise symmetrical. Breath sounds clear, diminished to bases. HEART: S1, S2. ABDOMEN: Soft, bowel tones present. EXTREMITIES: Without cyanosis. DIAGNOSTIC IMPRESSION: 1. Sepsis, resolving, s/p fevers and ALOC 2. Metastatic colon cancer, status post resection. 3. Status post acute encephalopathy with history of brain mass and status post mass resection. 4. Pneumonitis. 5. Pancytopenia. Plan: Remains stable, we will give the last dose of Tamiflu tonight, send stool for C. difficile, change meropenem to oral Levaquin, follow chest x-ray in a.m. Consultation Date/Type/Reason Admit Date/Time May 05, 2018 at 12:31 Initial Consult Date 05/06/18 Type of Consult id Requesting Provider: TAHIR MCBRIDE Date/Time of Note DATE: 05/11/18 TIME: 12:24 Exam/Review of Systems Exam Vitals Vital Signs Date Temp Pulse Resp B/P (MAP) Pulse Ox O2 O2 Flow FiO2 Time Delivery Rate 05/11/18 98.4 77 19 120/75 98 11:11 (90) 05/11/18 Nasal 2.0 02:05 Cannula 05/10/18 21 10:57 Intake and Output 05/10/18 05/10/18 05/11/18 1414:59 22:59 06:59 IntakeIntake Total 750 ml 500 ml 500 ml BalanceBalance 750 ml 500 ml 500 ml Results Result Diagram: 05/10/18 0654 05/11/18 0657 Results 24hrs Laboratory Tests Test 05/11/18 06:57 Sodium Level 128 L Potassium Level 3.1 L Chloride Level 97 Carbon Dioxide Level 22 Anion Gap 9 Blood Urea Nitrogen 12 Creatinine 0.60 L Est Glomerular Filtrat Rate mL/min > 60 Glucose Level 116 Calcium Level 7.8 L Medications Medication Current Medications Levothyroxine Sodium (Synthroid) 50 mcg BEFORE BREAKFAST PO Last administered on 05/11/18 07:10; Admin Dose 50 MCG; Start 05/05/18 at 07:00 Pyridoxine HCl (Vitamin B6) 100 mg DAILY PO Last administered on 05/11/18 0 8:45; Admin Dose 100 MG; Start 05/05/18 at 09:00 IV Flush (NS 3 ml) 3 ml PER PROTOCOL IV ; Start 05/05/18 at 06:00 Ondansetron HCl (Zofran Inj) 4 mg Q6H PRN IV NAUSEA/VOMITING Last administered on 05/10/18 20:18; Admin Dose 4 MG; Start 05/05/18 at 06:00 Bisacodyl (Dulcolax) 5 mg DAILY PRN PO .CONSTIPATION; Start 05/05/18 at 06:00 Tamsulosin HCl (Flomax) 0.4 mg HS PO Last administered on 05/10/18 20:25; Admin Dose 0.4 MG; Start 05/05/18 at 21:00 Albuterol/ Ipratropium (Duoneb) 3 ml Q4H RESP THERAPY PRN HHN SHORTNESS OF BREATH Last administered on 05/11/18 02:05; Admin Dose 3 ML; Start 05/05/18 at 22:30 Sodium Chloride (Nacl) 1 gm BID PO Last administered on 05/11/18 08:44; Admin Dose 1 GM; Start 05/06/18 at 21:30 Acetaminophen (Tylenol Tab) 650 mg Q6H PRN PO MILD PAIN(1-3)OR ELEVATED TEMP Last administered on 05/09/18 21:17; Admin Dose 650 MG; Start 05/06/18 at 21:30 Pantoprazole (Protonix Iv) 40 mg DAILY@06 IV Last administered on 05/11/18 07:10; Admin Dose 40 MG; Start 05/08/18 at 06:00 Meropenem/Sodium Chloride 50 ml @ 100 mls/hr Q8 IVPB Last administered on 05/11/18 07:10; Admin Dose 100 MLS/HR; Start 05/08/18 at 14:00 Oseltamivir Phosphate (Tamiflu) 75 mg BID PO Last administered on 05/11/18 08:57; Admin Dose 75 MG; Start 05/10/18 at 21:00 Benzocaine (Orajel) 1 applic BID MM Last administered on 05/11/18at 08:45; Admin Dose 1 APPLIC; Start 05/11/18 at 01:30 Lactulose (Enulose) 20 gm Q8 PO ; Start 05/11/18 at 14:00; Status Future Hold ALISHA MISHRA NP May 11, 2018 12:26
[2018-05-11] MEDS ORDERED: LACTULOSE 30ML CUP PO SCH (14:00)
--- NOTE | 2018-05-11 17:57 | PN ---
Date/Time of Note Date/Time of Note DATE: 05/11/18 TIME: 17:48 Assessment/Plan VTE Prophylaxis Risk score (from [facility] [place]0 risk: 14 SCD applied (from [facility] [place] Yes Pharmacological prophylaxis: NA/contraindicated Pharm contraindication: other Lines/Catheters IV C[facility]ter Type (from [facility] Port a cath Urinary Cath still in place: No Assessment/Plan Hospital Course 62 yo male with stage IV colon cancer presented with sepsis and acute encephalopathy Encephalopathy likely secondary to history of whole brain radiation -Patient does have a history of whole brain radiation over a year ago with gradual decline in mental function, patient became acutely worse after restarti ng FOLFOX -Patient has no other explanation for his encephalopathy, ammonia level is normal with no evidence of liver disease, no evidence of further infection and MRI brain with no acute findings Sepsis: - Unclear source but resolved with antibiotics - further abx per ID, continue Tamiflu, consider further de-escalation of antibiotics in the coming days Colon cancer: - on treatment as outpatient, resume at discharge Hyponatremia: - Continue salt tabs -NS GIACOMO: - Resolving with volume expansion DC planning: Patient continues to be encephalopathic with family does not want placement in a [place] [facility] care facility, plan is to DC home with home health and DME's, correctional case records supervisor aware Result Diagram: 05/10/18 0654 05/11/18 0657 Results 24hrs Laboratory Tests Test 05/11/18 06:57 05/11/18 11:46 Sodium Level 128 L Potassium Level 3.1 L Chloride Level 97 Carbon Dioxide Level 22 Anion Gap 9 Blood Urea Nitrogen 12 Creatinine 0.60 L Est Glomerular Filtrat Rate mL/min > 60 Glucose Level 116 Calcium Level 7.8 L Ammonia < 9 L Subjective 24 Hr Interval Summary Constitutional: disoriented Exam/Review of Systems Exam Vitals Vital Signs Date Temp Pulse Resp B/P (MAP) Pulse Ox O2 O2 Flow FiO2 Time Delivery Rate 05/11/18 65 17:31 05/11/18 97.7 21 144/87 98 15:41 (106) 05/11/18 2.0 13:46 05/11/18 Nasal 02:05 Cannula 05/10/18 21 10:57 Intake and Output 05/10/18 05/10/18 05/11/18 1515:00 23:00 07:00 IntakeIntake Total 750 ml 500 ml 500 ml BalanceBalance 750 ml 500 ml 500 ml Psych: confusion Respiratory: clear to auscultation Cardiovascular: regular rate and rhythm Gastrointestinal: soft; No distended Musculoskeletal: nl extremities to inspection Results Results 24hrs Laboratory Tests Test 05/11/18 06:57 05/11/18 11:46 Sodium Level 128 L Potassium Level 3.1 L Chloride Level 97 Carbon Dioxide Level 22 Anion Gap 9 Blood Urea Nitrogen 12 Creatinine 0.60 L Est Glomerular Filtrat Rate mL/min > 60 Glucose Level 116 Calcium Level 7.8 L Ammonia < 9 L Medications Medication Current Medications Levothyroxine Sodium (Synthroid) 50 mcg BEFORE BREAKFAST PO Last administered on 05/11/18 07:10; Admin Dose 50 MCG; Start 05/05/18 at 07:00 Pyridoxine HCl (Vitamin B6) 100 mg DAILY PO Last administered on 05/11/18 08:45; Admin Dose 100 MG; Start 05/05/18 at 09:00 IV Flush (NS 3 ml) 3 ml PER PROTOCOL IV ; Start 05/05/18 at 06:00 Ondansetron HCl (Zofran Inj) 4 mg Q6H PRN IV NAUSEA/VOMITING Last administered on 05/10/18 20:18; Admin Dose 4 MG; Start 05/05/18 at 06:00 Bisacodyl (Dulcolax) 5 mg DAILY PRN PO .CONSTIPATION; Start 05/05/18 at 06:00 Tamsulosin HCl (Flomax) 0.4 mg HS PO Last administered on 05/10/18 20:25; Admin Dose 0.4 MG; Start 05/05/18 at 21:00 Albuterol/ Ipratropium (Duoneb) 3 ml Q4H RESP THERAPY PRN HHN SHORTNESS OF BREATH Last administered on 05/11/18 02:05; Admin Dose 3 ML; Start 05/05/18 at 22:30 Sodium Chloride (Nacl) 1 gm BID PO Last administered on 05/11/18 08:44; Admin Dose 1 GM; Start 05/06/18 at 21:30 Acetaminophen (Tylenol Tab) 650 mg Q6H PRN PO MILD PAIN(1-3)OR ELEVATED TEMP Last administered on 05/09/18 21:17; Admin Dose 650 MG; Start 05/06/18 at 21:30 Oseltamivir Phosphate (Tamiflu) 75 mg BID PO Last administered on 05/11/18at 08:57; Admin Dose 75 MG; Start 05/10/18 at 21:00 Benzocaine (Orajel) 1 applic BID MM Last administered on 05/11/18at 08:45; Admin Dose 1 APPLIC; Start 05/11/18 at 01:30 Lactulose (Enulose) 20 gm Q8 PO ; Start 05/11/18 at 14:00; Status Hold Levofloxacin (Levaquin) 500 mg DAILY@06 PO ; Start 05/12/18 at 06:00 Pantoprazole (Protonix Tab) 40 mg DAILY@06 PO ; Start 05/12/18 at 06:00 ARASELI RUBI May 11, 2018 17:57
[2018-05-11] MEDS: TAMSULOSIN (SR) 0.4 MG CAP PO SCH (21:10)
[2018-05-11] MEDS: POTASSIUM CHLORIDE 40 MEQ in SOD CHLORIDE 0.9% 1,000 ML IV SCH (21:11)
[2018-05-11] MEDS: ACETAMINOPHEN 325 MG TAB PO PRN (23:02)
[2018-05-12] VITALS (12 sets, daily range): BP systolic 114–157; BP diastolic 65–96; PULSE 61–87; RESP 18–22
[2018-05-12] MEDS ORDERED: PANTOPRAZOLE (EC) 40 MG TAB PO SCH (06:00)
[2018-05-12] MEDS: LEVOFLOXACIN 500 MG TAB PO SCH (06:14)
[2018-05-12] MEDS: LEVOTHYROXINE 50 MCG TAB PO SCH (06:14)
[2018-05-12] MEDS: POTASSIUM CHLORIDE 40 MEQ in SOD CHLORIDE 0.9% 1,000 ML IV SCH ×2 (07:29→08:43)
[2018-05-12] MEDS: SODIUM CHLORIDE 1 GM TAB PO SCH ×2 (08:44→20:16)
[2018-05-12] MEDS: PYRIDOXINE 50 MG TAB PO SCH (08:44)
[2018-05-12] MEDS: BENZOCAINE 10% 7 GM GEL MM SCH ×2 (08:44→20:16)
[2018-05-12] MEDS: OSELTAMIVIR 75 MG CAP PO SCH (08:44)
--- NOTE | 2018-05-12 09:43 | CONS ---
Assessment/Plan Assessment/Plan Assessment/Plan (Daily) 1. 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 Sepsis 3. H/o metastatic colon CA on chemotherapy 4. H/o HTN 5. H/o HL 6. Dizziness 7. Hypokalemia Plan: Na improved to 135 - continue Na chloride tablet- change it to 1 gram PO daily will follow up Consultation Date/Type/Reason Admit Date/Time May 05, 2018 at 12:31 Initial Consult Date 05/06/18 Type of Consult NEPHROLOGY Requesting Provider: TAHIR MCBRIDE Date/Time of Note DATE: 05/12/18 TIME: 09:43 Exam/Review of Systems Exam Vitals Vital Signs Date Temp Pulse Resp B/P (MAP) Pulse Ox O2 O2 Flow FiO2 Time Delivery Rate 05/12/18 61 08:18 05/12/18 97.6 21 129/75 100 07:16 (93) 05/11/18 2.0 13:46 05/11/18 Nasal 02:05 Cannula 05/10/18 21 10:57 Intake and Output 05/11/18 05/11/18 05/12/18 1515:00 23:00 07:00 IntakeIntake Total 1000 ml 400 ml BalanceBalance 1000 ml 400 ml Exam Constitutional: alert Respiratory: clear to auscultation, congested cough, diminished breath sounds Cardiovascular: regular rate and rhythm, nl pulses Gastrointestinal: soft, non-tender Musculoskeletal: nl extremities to inspection Extremities: normal pulses 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, nl mental status, nl speech, nl strength Results Result Diagram: 05/12/18 0608 05/12/18 0608 Results 24hrs Laboratory Tests Test 05/11/18 11:46 05/12/18 06:08 Ammonia < 9 L White Blood Count 4.8 # Red Blood Count 3.09 L Hemoglobin 10.2 L Hematocrit 29.3 L Mean Corpuscular Volume 94.8 Mean Corpuscular Hemoglobin 33.0 Mean Corpuscular Hemoglobin Concent 34.8 Red Cell Distribution Width 17.4 H Platelet Count 183 Mean Platelet Volume 9.9 Immature Granulocytes % 0.400 Neutrophils % 66.8 Lymphocytes % 17.7 Monocytes % 14.5 H Eosinophils % 0.2 Basophils % 0.4 Nucleated Red Blood Cells % 0.0 Immature Granulocytes # 0.020 Neutrophils # 3.2 Lymphocytes # 0.8 Monocytes # 0.7 Eosinophils # 0.0 Basophils # 0.0 Nucleated Red Blood Cells # 0.0 Sodium Level 135 Potassium Level 3.8 Chloride Level 105 Carbon Dioxide Level 23 Anion Gap 7 Blood Urea Nitrogen 10 Creatinine 0.54 L Est Glomerular Filtrat Rate mL/min > 60 Glucose Level 91 Calcium Level 8.0 L Medications Medication Current Medications Levothyroxine Sodium (Synthroid) 50 mcg BEFORE BREAKFAST PO Last administered on 05/12/18 06:14; Admin Dose 50 MCG; Start 05/05/18 at 07:00 Pyridoxine HCl (Vitamin B6) 100 mg DAILY PO Last administered on 05/12/18 08:44; Admin Dose 100 MG; Start 05/05/18 at 09:00 IV Flush (NS 3 ml) 3 ml PER PROTOCOL IV ; Start 05/05/18 at 06:00 Ondansetron HCl (Zofran Inj) 4 mg Q6H PRN IV NAUSEA/VOMITING Last administered on 05/10/18 20:18; Admin Dose 4 MG; Start 05/05/18 at 06:00 Bisacodyl (Dulcolax) 5 mg DAILY PRN PO .CONSTIPATION; Start 05/05/18 at 06:00 Tamsulosin HCl (Flomax) 0.4 mg HS PO Last administered on 05/11/18 21:10; Admin Dose 0.4 MG; Start 05/05/18 at 21:00 Albuterol/ Ipratropium (Duoneb) 3 ml Q4H RESP THERAPY PRN HHN SHORTNESS OF BREATH Last administered on 05/11/18 02:05; Admin Dose 3 ML; Start 05/05/18 at 22:30 Sodium Chloride (Nacl) 1 gm BID PO Last administered on 05/12/18 08:44; Admin Dose 1 GM; Start 05/06/18 at 21:30 Acetaminophen (Tylenol Tab) 650 mg Q6H PRN PO MILD PAIN(1-3)OR ELEVATED TEMP Last administered on 05/11/18 23:02; Admin Dose 650 MG; Start 05/06/18 at 21:30 Oseltamivir Phosphate (Tamiflu) 75 mg BID PO Last administered on 05/12/18 08:44; Admin Dose 75 MG; Start 05/10/18 at 21:00 Benzocaine (Orajel) 1 applic BID MM Last administered on 05/12/18 08:44; Admin Dose 1 APPLIC; Start 05/11/18 at 01:30 Levofloxacin (Levaquin) 500 mg DAILY@06 PO Last administered on 05/12/18 06:14; Admin Dose 500 MG; Start 05/12/18 at 06:00 Potassium Chloride 40 meq/ Sodium Chloride 1,000 ml @ 100 mls/hr Q10H IV Last administered on 05/12/18 08:43; Admin Dose 100 MLS/HR; Start 05/11/18 at 19:00 CHETAN NOVA MD May 12, 2018 09:43
--- NOTE | 2018-05-12 13:21 | CONS ---
Assessment/Plan Assessment/Plan Hospital Course (Demo Recall) No acute events overnight, looks comfortable no fevers Antimicrobials: Levaquin Tamiflu All cultures remain negative PHYSICAL EXAMINATION: GENERAL: This is a well-nourished, well-developed elderly man who looks comfortable HEENT: Head atraumatic, normocephalic. Sclerae anicteric. NECK: Supple. CHEST: Rise symmetrical. Breath sounds clear, diminished to bases. HEART: S1, S2. ABDOMEN: Soft, bowel tones present. EXTREMITIES: Without cyanosis. DIAGNOSTIC IMPRESSION: 1. S/p sepsis 2. Metastatic colon cancer, status post resection. 3. Status post acute encephalopathy with history of brain mass and status post mass resection. 4. Pneumonitis. 5. Pancytopenia. Plan: Remains stable, cxr noted, continue Levaquin, dc Tamiflu Consultation Date/Type/Reason Admit Date/Time May 05, 2018 at 12:31 Initial Consult Date 05/06/18 Type of Consult id Requesting Provider: TAHIR MCBRIDE Date/Time of Note DATE: 05/12/18 TIME: 13:20 Exam/Review of Systems Exam Vitals Vital Signs Date Temp Pulse Resp B/P (MAP) Pulse Ox O2 O2 Flow FiO2 Time Delivery Rate 05/12/18 80 12:39 05/12/18 98.0 19 147/88 99 11:42 (107) 05/11/18 2.0 13:46 05/11/18 Nasal 02:05 Cannula 05/10/18 21 10:57 Intake and Output 05/11/18 05/11/18 05/12/18 1515:00 23:00 07:00 IntakeIntake Total 1000 ml 400 ml BalanceBalance 1000 ml 400 ml Results Result Diagram: 05/12/18 0608 05/12/18 0608 Results 24hrs Laboratory Tests Test 05/12/18 06:08 White Blood Count 4.8 # Red Blood Count 3.09 L Hemoglobin 10.2 L Hematocrit 29.3 L Mean Corpuscular Volume 94.8 Mean Corpuscular Hemoglobin 33.0 Mean Corpuscular Hemoglobin Concent 34.8 Red Cell Distribution Width 17.4 H Platelet Count 183 Mean Platelet Volume 9.9 Immature Granulocytes % 0.400 Neutrophils % 66.8 Lymphocytes % 17.7 Monocytes % 14.5 H Eosinophils % 0.2 Basophils % 0.4 Nucleated Red Blood Cells % 0.0 Immature Granulocytes # 0.020 Neutrophils # 3.2 Lymphocytes # 0.8 Monocytes # 0.7 Eosinophils # 0.0 Basophils # 0.0 Nucleated Red Blood Cells # 0.0 Sodium Level 135 Potassium Level 3.8 Chloride Level 105 Carbon Dioxide Level 23 Anion Gap 7 Blood Urea Nitrogen 10 Creatinine 0.54 L Est Glomerular Filtrat Rate mL/min > 60 Glucose Level 91 Calcium Level 8.0 L Medications Medication Current Medications Levothyroxine Sodium (Synthroid) 50 mcg BEFORE BREAKFAST PO Last administered on 05/12/18 06:14; Admin Dose 50 MCG; Start 05/05/18 at 07:00 Pyridoxine HCl (Vitamin B6) 100 mg DAILY PO Last administered on 05/12/18 08:44; Admin Dose 100 MG; Start 05/05/18 at 09:00 IV Flush (NS 3 ml) 3 ml PER PROTOCOL IV ; Start 05/05/18 at 06:00 Ondansetron HCl (Zofran Inj) 4 mg Q6H PRN IV NAUSEA/VOMITING Last administered on 05/10/18 20:18; Admin Dose 4 MG; Start 05/05/18 at 06:00 Bisacodyl (Dulcolax) 5 mg DAILY PRN PO .CONSTIPATION; Start 05/05/18 at 06:00 Tamsulosin HCl (Flomax) 0.4 mg HS PO Last administered on 05/11/18 21:10; Admin Dose 0.4 MG; Start 05/05/18 at 21:00 Albuterol/ Ipratropium (Duoneb) 3 ml Q4H RESP THERAPY PRN HHN SHORTNESS OF BREATH Last administered on 05/11/18 02:05; Admin Dose 3 ML; Start 05/05/18 at 22:30 Sodium Chloride (Nacl) 1 gm BID PO Last administered on 05/12/18 08:44; Admin Dose 1 GM; Start 05/06/18 at 21:30 Acetaminophen (Tylenol Tab) 650 mg Q6H PRN PO MILD PAIN(1-3)OR ELEVATED TEMP Last administered on 05/11/18 23:02; Admin Dose 650 MG; Start 05/06/18 at 21:30 Oseltamivir Phosphate (Tamiflu) 75 mg BID PO Last administered on 05/12/18 08:44; Admin Dose 75 MG; Start 05/10/18 at 21:00 Benzocaine (Orajel) 1 applic BID MM Last administered on 05/12/18at 08:44; Admin Dose 1 APPLIC; Start 05/11/18 at 01:30 Levofloxacin (Levaquin) 500 mg DAILY@06 PO Last administered on 05/12/18at 06:14; Admin Dose 500 MG; Start 05/12/18 at 06:00 Potassium Chloride 40 meq/ Sodium Chloride 1,000 ml @ 100 mls/hr Q10H IV Last administered on 05/12/18at 08:43; Admin Dose 100 MLS/HR; Start 05/11/18 at 19:00 ALISHA MISHRA NP May 12, 2018 13:21
--- NOTE | 2018-05-12 14:48 | CONS ---
Assessment/Plan Assessment/Plan Hospital Course (Demo Recall) #STAGE IV Colon Cancer -pt has known mets to brain, liver and lung mets -last CT Chest done during this admission demonstrates no evidence of pulmonary mets. Brain MRI shows no evidence of intracranial disease -thus it is likely that patient is currently responding to his current treatment of Xeliri / Avastin -still he appears very weak and it is questionable it he is even able to tolerate this therapy -this will have ot be re-addressed by his oncologist once he is discharged and free of infection -if he has progressed, his primary oncologist may consider Lonsurf vs Stivarga #confusion -improving -Nain MRI MARÍA #Sepsis -possibly 2/2 influenza -on tamiflu -continue meropenem per ID Consultation Date/Type/Reason Admit Date/Time May 05, 2018 at 12:31 Initial Consult Date 05/05/18 Type of Consult oncology Reason for Consultation metastatic colon cancer Requesting Provider: TAHIR MCBRIDE Date/Time of Note DATE: 05/12/18 TIME: 14:47 24 HR Interval Summary Free Text/Dictation pt continues to be more awake Exam/Review of Systems Exam Vitals Vital Signs Date Temp Pulse Resp B/P (MAP) Pulse Ox O2 O2 Flow FiO2 Time Delivery Rate 05/12/18 80 12:39 05/12/18 98.0 19 147/88 99 11:42 (107) 05/11/18 2.0 13:46 05/11/18 Nasal 02:05 Cannula 05/10/18 21 10:57 Intake and Output 05/11/18 05/11/18 05/12/18 1515:00 23:00 07:00 IntakeIntake Total 1000 ml 400 ml BalanceBalance 1000 ml 400 ml Constitutional: alert, oriented Psych: no complaints Head: normocephalic Eyes: nl conjunctiva ENMT: nl external ears & nose Neck: supple Respiratory: clear to auscultation Cardiovascular: regular rate and rhythm Gastrointestinal: soft Musculoskeletal: nl extremities to inspection Results Result Diagram: 05/12/18 0608 05/12/18 0608 Results 24hrs Laboratory Tests Test 05/12/18 06:08 White Blood Count 4.8 # Red Blood Count 3.09 L Hemoglobin 10.2 L Hematocrit 29.3 L Mean Corpuscular Volume 94.8 Mean Corpuscular Hemoglobin 33.0 Mean Corpuscular Hemoglobin Concent 34.8 Red Cell Distribution Width 17.4 H Platelet Count 183 Mean Platelet Volume 9.9 Immature Granulocytes % 0.400 Neutrophils % 66.8 Lymphocytes % 17.7 Monocytes % 14.5 H Eosinophils % 0.2 Basophils % 0.4 Nucleated Red Blood Cells % 0.0 Immature Granulocytes # 0.020 Neutrophils # 3.2 Lymphocytes # 0.8 Monocytes # 0.7 Eosinophils # 0.0 Basophils # 0.0 Nucleated Red Blood Cells # 0.0 Sodium Level 135 Potassium Level 3.8 Chloride Level 105 Carbon Dioxide Level 23 Anion Gap 7 Blood Urea Nitrogen 10 Creatinine 0.54 L Est Glomerular Filtrat Rate mL/min > 60 Glucose Level 91 Calcium Level 8.0 L Medications Medication Current Medications Levothyroxine Sodium (Synthroid) 50 mcg BEFORE BREAKFAST PO Last administered on 05/12/18 06:14; Admin Dose 50 MCG; Start 05/05/18 at 07:00 Pyridoxine HCl (Vitamin B6) 100 mg DAILY PO Last administered on 05/12/18 08: 44; Admin Dose 100 MG; Start 05/05/18 at 09:00 IV Flush (NS 3 ml) 3 ml PER PROTOCOL IV ; Start 05/05/18 at 06:00 Ondansetron HCl (Zofran Inj) 4 mg Q6H PRN IV NAUSEA/VOMITING Last administered on 05/10/18 20:18; Admin Dose 4 MG; Start 05/05/18 at 06:00 Bisacodyl (Dulcolax) 5 mg DAILY PRN PO .CONSTIPATION; Start 05/05/18 at 06:00 Tamsulosin HCl (Flomax) 0.4 mg HS PO Last administered on 05/11/18 21:10; Admin Dose 0.4 MG; Start 05/05/18 at 21:00 Albuterol/ Ipratropium (Duoneb) 3 ml Q4H RESP THERAPY PRN HHN SHORTNESS OF BREATH Last administered on 05/11/18 02:05; Admin Dose 3 ML; Start 05/05/18 at 22:30 Sodium Chloride (Nacl) 1 gm BID PO Last administered on 05/12/18 08:44; Admin Dose 1 GM; Start 05/06/18 at 21:30 Acetaminophen (Tylenol Tab) 650 mg Q6H PRN PO MILD PAIN(1-3)OR ELEVATED TEMP Last administered on 05/11/18at 23:02; Admin Dose 650 MG; Start 05/06/18 at 21:30 Benzocaine (Orajel) 1 applic BID MM Last administered on 05/12/18at 08:44; Admin Dose 1 APPLIC; Start 05/11/18 at 01:30 Levofloxacin (Levaquin) 500 mg DAILY@06 PO Last administered on 05/12/18 06:14; Admin Dose 500 MG; Start 05/12/18 at 06:00 Potassium Chloride 40 meq/ Sodium Chloride 1,000 ml @ 100 mls/hr Q10H IV Last administered on 05/12/18 08:43; Admin Dose 100 MLS/HR; Start 05/11/18 at 19:00 CARIDAD GAFFNEY M.D. May 12, 2018 14:47
--- NOTE | 2018-05-12 15:44 | PN ---
Date/Time of Note Date/Time of Note DATE: 05/12/18 TIME: 15:42 Assessment/Plan VTE [place]axis [place] [facility] [place]: 14 [place] [facility] [place] Yes Pharmacological prophylaxis: LMWH Pharm contraindication: other Lines/Catheters IV Catheter Type (from [facility] Port a cath Urinary Cath still in place: No Assessment/Plan Hospital Course 62 yo male with stage IV colon cancer presented with sepsis and acute encephalopathy Encephalopathy likely secondary to history of whole brain radiation -Patient does have a history of whole brain radiation over a year ago with gradual decline in mental function, patient became acutely worse after restarting FOLFOX -Patient has no other explanation for his encephalopathy, ammonia level is normal with no evidence of liver disease, no evidence of further infection and MRI brain with no acute findings Sepsis: - Unclear source but resolved with antibiotics - further abx per ID, continue Tamiflu, consider further de-escalation of antibiotics in the coming days Colon cancer: - on treatment as outpatient, resume at discharge Hyponatremia: - Continue salt tabs -NS GIACOMO: - Resolving with volume expansion Prophylaxis: Lovenox DC planning: Patient continues to have labile encephalopathy but family does not want placement in a prison, plan is to DC home with home health and DME's, correctional counselor/case manager aware Result Diagram: 05/12/18 0608 05/12/18 0608 Results 24hrs Laboratory Tests Test 05/12/18 06:08 White Blood Count 4.8 # Red Blood Count 3.09 L Hemoglobin 10.2 L Hematocrit 29.3 L Mean Corpuscular Volume 94.8 Mean Corpuscular Hemoglobin 33.0 Mean Corpuscular Hemoglobin Concent 34.8 Red Cell Distribution Width 17.4 H Platelet Count 183 Mean Platelet Volume 9.9 Immature Granulocytes % 0.400 Neutrophils % 66.8 Lymphocytes % 17.7 Monocytes % 14.5 H Eosinophils % 0.2 Basophils % 0.4 Nucleated Red Blood Cells % 0.0 Immature Granulocytes # 0.020 Neutrophils # 3.2 Lymphocytes # 0.8 Monocytes # 0.7 Eosinophils # 0.0 Basophils # 0.0 Nucleated Red Blood Cells # 0.0 Sodium Level 135 Potassium Level 3.8 Chloride Level 105 Carbon Dioxide Level 23 Anion Gap 7 Blood Urea Nitrogen 10 Creatinine 0.54 L Est Glomerular Filtrat Rate mL/min > 60 Glucose Level 91 Calcium Level 8.0 L Subjective 24 Hr Interval Summary Constitutional: no complaints Exam/Review of Systems Exam Vitals Vital Signs Date Temp Pulse Resp B/P (MAP) Pulse Ox O2 O2 Flow FiO2 Time Delivery Rate 05/12/18 98.0 74 21 157/96 98 15:25 (116) 05/11/18 2.0 13:46 05/11/18 Nasal 02:05 Cannula 05/10/18 21 10:57 Intake and Output 05/11/18 05/11/18 05/12/18 1515:00 23:00 07:00 IntakeIntake Total 1000 ml 400 ml BalanceBalance 1000 ml 400 ml Constitutional: alert Respiratory: clear to auscultation Cardiovascular: regular rate and rhythm Gastrointestinal: soft; No distended Musculoskeletal: nl extremities to inspection Results Results 24hrs Laboratory Tests Test 05/12/18 06:08 White Blood Count 4.8 # Red Blood Count 3.09 L Hemoglobin 10.2 L Hematocrit 29.3 L Mean Corpuscular Volume 94.8 Mean Corpuscular Hemoglobin 33.0 Mean Corpuscular Hemoglobin Concent 34.8 Red Cell Distribution Width 17.4 H Platelet Count 183 Mean Platelet Volume 9.9 Immature Granulocytes % 0.400 Neutrophils % 66.8 Lymphocytes % 17.7 Monocytes % 14.5 H Eosinophils % 0.2 Basophils % 0.4 Nucleated Red Blood Cells % 0.0 Immature Granulocytes # 0.020 Neutrophils # 3.2 Lymphocytes # 0.8 Monocytes # 0.7 Eosinophils # 0.0 Basophils # 0.0 Nucleated Red Blood Cells # 0.0 Sodium Level 135 Potassium Level 3.8 Chloride Level 105 Carbon Dioxide Level 23 Anion Gap 7 Blood Urea Nitrogen 10 Creatinine 0.54 L Est Glomerular Filtrat Rate mL/min > 60 Glucose Level 91 Calcium Level 8.0 L Medications Medication Current Medications Levothyroxine Sodium (Synthroid) 50 mcg BEFORE BREAKFAST PO Last administered on 05/12/18at 06:14; Admin Dose 50 MCG; Start 05/05/18 at 07:00 Pyridoxine HCl (Vitamin B6) 100 mg DAILY PO Last administered on 05/12/18at 08:44; Admin Dose 100 MG; Start 05/05/18 at 09:00 IV Flush (NS 3 ml) 3 ml PER PROTOCOL IV ; Start 05/05/18 at 06:00 Ondansetron HCl (Zofran Inj) 4 mg Q6H PRN IV NAUSEA/VOMITING Last administered on 05/10/18 20:18; Admin Dose 4 MG; Start 05/05/18 at 06:00 Bisacodyl (Dulcolax) 5 mg DAILY PRN PO .CONSTIPATION; Start 05/05/18 at 06:00 Tamsulosin HCl (Flomax) 0.4 mg HS PO Last administered on 05/11/18 21:10; Admin Dose 0.4 MG; Start 05/05/18 at 21:00 Albuterol/ Ipratropium (Duoneb) 3 ml Q4H RESP THERAPY PRN HHN SHORTNESS OF BREATH Last administered on 05/11/18 02:05; Admin Dose 3 ML; Start 05/05/18 at 22:30 Sodium Chloride (Nacl) 1 gm BID PO Last administered on 05/12/18 08:44; Admin Dose 1 GM; Start 05/06/18 at 21:30 Acetaminophen (Tylenol Tab) 650 mg Q6H PRN PO MILD PAIN(1-3)OR ELEVATED TEMP Last administered on 05/11/18 23:02; Admin Dose 650 MG; Start 05/06/18 at 21:30 Benzocaine (Orajel) 1 applic BID MM Last administered on 05/12/18 08:44; Admin Dose 1 APPLIC; Start 05/11/18 at 01:30 Levofloxacin (Levaquin) 500 mg DAILY@06 PO Last administered on 05/12/18 06:14; Admin Dose 500 MG; Start 05/12/18 at 06:00 Potassium Chloride 40 meq/ Sodium Chloride 1,000 ml @ 100 mls/hr Q10H IV Last administered on 05/12/18 08:43; Admin Dose 100 MLS/HR; Start 05/11/18 at 19:00 ARASELI RUBI May 12, 2018 15:44
[2018-05-12] MEDS: TAMSULOSIN (SR) 0.4 MG CAP PO SCH (20:16)
[2018-05-12] MEDS: ONDANSETRON 4 MG INJ IV PRN (20:53)
[2018-05-12] MEDS: ALBUTEROL/IPRATROPIUM (NEB) 3 ML AMP HHN PRN (20:56)
[2018-05-12] MEDS: ACETAMINOPHEN 325 MG TAB PO PRN (22:52)
[2018-05-13] VITALS (11 sets, daily range): BP systolic 129–167; BP diastolic 78–95; PULSE 68–84; RESP 16–18
[2018-05-13] MEDS: POTASSIUM CHLORIDE 40 MEQ in SOD CHLORIDE 0.9% 1,000 ML IV SCH ×3 (00:56→20:31)
[2018-05-13] MEDS: ALBUTEROL/IPRATROPIUM (NEB) 3 ML AMP HHN SCH ×5 (05:03→20:08)
[2018-05-13] MEDS: LEVOTHYROXINE 50 MCG TAB PO SCH (06:22)
[2018-05-13] MEDS: LEVOFLOXACIN 500 MG TAB PO SCH (06:22)
[2018-05-13] MEDS: PYRIDOXINE 50 MG TAB PO SCH (08:30)
[2018-05-13] MEDS: SODIUM CHLORIDE 1 GM TAB PO SCH (08:30)
[2018-05-13] MEDS: BENZOCAINE 10% 7 GM GEL MM SCH ×2 (08:30→20:29)
[2018-05-13] MEDS: ENOXAPARIN 40 MG/0.4 ML SYG SC SCH (08:38)
--- NOTE | 2018-05-13 11:51 | CONS ---
Assessment/Plan Assessment/Plan Hospital Course (Demo Recall) #STAGE IV Colon Cancer -pt has known mets to brain, liver and lung mets -last CT Chest done during this admission demonstrates no evidence of pulmonary mets. Brain MRI shows no evidence of intracranial disease -thus it is likely that patient is currently responding to his current treatment of Xeliri / Avastin -still he appears very weak and it is questionable it he is even able to tolerate this therapy -this will have ot be re-addressed by his oncologist once he is discharged and free of infection -if he has progressed, his primary oncologist may consider Lonsurf vs Stivarga #confusion -improving -Nain MRI MARÍA #Sepsis -possibly 2/2 influenza -on tamiflu -continue meropenem per ID Consultation Date/Type/Reason Admit Date/Time May 05, 2018 at 12:31 Initial Consult Date 05/05/18 Type of Consult oncology Reason for Consultation metastatic colon cancer Requesting Provider: TAHIR MCBRIDE Date/Time of Note DATE: 05/13/18 TIME: 11:50 24 HR Interval Summary Free Text/Dictation patient's mental status continues to improve Exam/Review of Systems Exam Vitals Vital Signs Date Temp Pulse Resp B/P (MAP) Pulse Ox O2 O2 Flow FiO2 Time Delivery Rate 05/13/18 73 20 100 Nasal 2.0 08:57 Cannula 05/13/18 97.5 138/82 07:17 (100) 05/13/18 26 05:05 Intake and Output 05/12/18 05/12/18 05/13/18 1515:00 23:00 07:00 IntakeIntake Total 1000 ml 600 ml BalanceBalance 1000 ml 600 ml Constitutional: alert, frail Psych: no complaints, depression Head: normocephalic Eyes: nl conjunctiva ENMT: nl external ears & nose Neck: supple Respiratory: clear to auscultation Cardiovascular: regular rate and rhythm Gastrointestinal: soft Musculoskeletal: nl extremities to inspection Results Result Diagram: 05/12/1860705/12/18607 Medications Medication Current Medications Levothyroxine Sodium (Synthroid) 50 mcg BEFORE BREAKFAST PO Last administered on 05/13/18at 06:22; Admin Dose 50 MCG; Start 05/05/18 at 07:00 Pyridoxine HCl (Vitamin B6) 100 mg DAILY PO Last administered on 05/13/18at 08:30; Admin Dose 100 MG; Start 05/05/18 at 09:00 IV Flush (NS 3 ml) 3 ml PER PROTOCOL IV ; Start 05/05/18 at 06:00 Ondansetron HCl (Zofran Inj) 4 mg Q6H PRN IV NAUSEA/VOMITING Last administered on 05/12/18 20:53; Admin Dose 4 MG; Start 05/05/18 at 06:00 Bisacodyl (Dulcolax) 5 mg DAILY PRN PO .CONSTIPATION; Start 05/05/18 at 06:00 Tamsulosin HCl (Flomax) 0.4 mg HS PO Last administered on 05/12/18 20:16; Admin Dose 0.4 MG; Start 05/05/18 at 21:00 Albuterol/ Ipratropium (Duoneb) 3 ml Q4H RESP THERAPY PRN HHN SHORTNESS OF DEONNA TH Last administered on 05/12/18 20:56; Admin Dose 3 ML; Start 05/05/18 at 22:30 Acetaminophen (Tylenol Tab) 650 mg Q6H PRN PO MILD PAIN(1-3)OR ELEVATED TEMP Last administered on 05/12/18 22:52; Admin Dose 650 MG; Start 05/06/18 at 21:30 Benzocaine (Orajel) 1 applic BID MM Last administered on 05/13/18 08:30; Admin Dose 1 APPLIC; Start 05/11/18 at 01:30 Levofloxacin (Levaquin) 500 mg DAILY@06 PO Last administered on 05/13/18 06:22; Admin Dose 500 MG; Start 05/12/18 at 06:00 Potassium Chloride 40 meq/ Sodium Chloride 1,000 ml @ 100 mls/hr Q10H IV Last administered on 05/13/18 10:14; Admin Dose 100 MLS/HR; Start 05/11/18 at 19:00 Enoxaparin Sodium (Lovenox) 40 mg DAILY SC Last administered on 05/13/18 08:38; Admin Dose 40 MG; Start 05/13/18 at 09:00 Sodium Chloride (Nacl) 1 gm DAILY PO Last administered on 05/13/18 08:30; Admin Dose 1 GM; Start 05/13/18 at 09:00 Albuterol/ Ipratropium (Duoneb) 3 ml Q4H RESP THERAPY HHN Last administered on 05/13/18at 08:46; Admin Dose 3 ML; Start 05/13/18 at 05:00 CARIDAD GAFFNEY M.D. May 13, 2018 11:51
--- NOTE | 2018-05-13 12:23 | CONS ---
Assessment/Plan Assessment/Plan Assessment/Plan (Daily) 1. 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 Sepsis 3. H/o metastatic colon CA on chemotherapy 4. H/o HTN 5. H/o HL 6. Dizziness 7. Hypokalemia Plan: Na improved to 135 - continue Na chloride tablet 1 gram PO daily d/c plannign in progress will follow up Consultation Date/Type/Reason Admit Date/Time May 05, 2018 at 12:31 Initial Consult Date 05/06/18 Type of Consult NEPHROLOGY Requesting Provider: TAHIR MCBRIDE Date/Time of Note DATE: 05/13/18 TIME: 12:23 24 HR Interval Summary Free Text/Dictation Na 135, afebrile, Bp stable Exam/Review of Systems Exam Vitals Vital Signs Date Temp Pulse Resp B/P (MAP) Pulse Ox O2 O2 Flow FiO2 Time Delivery Rate 05/13/18 98.1 75 16 148/85 97 Room Air 11:51 (106) 05/13/18 2.0 08:57 05/13/18 26 05:05 Intake and Output 05/12/18 05/12/18 05/13/18 1515:00 23:00 07:00 IntakeIntake Total 1000 ml 600 ml BalanceBalance 1000 ml 600 ml Exam Constitutional: alert Respiratory: clear to auscultation, congested cough, diminished breath sounds Cardiovascular: regular rate and rhythm, nl pulses Gastrointestinal: soft, non-tender Musculoskeletal: nl extremities to inspection Extremities: normal pulses Neurological: BOAT PERSON II-XII intact, nl mental status, nl speech, nl strength Results Result Diagram: 05/12/1808 05/12/18607 Medications Medication Current Medications Levothyroxine Sodium (Synthroid) 50 mcg BEFORE BREAKFAST PO Last administered on 05/13/18at 06:22; Admin Dose 50 MCG; Start 05/05/18 at 07:00 Pyridoxine HCl (Vitamin B6) 100 mg DAILY PO Last administered on 05/13/18at 08:30; Admin Dose 100 MG; Start 05/05/18 at 09:00 IV Flush (NS 3 ml) 3 ml PER PROTOCOL IV ; Start 05/05/18 at 06:00 Ondansetron HCl (Zofran Inj) 4 mg Q6H PRN IV NAUSEA/VOMITING Last administered on 05/12/18at 20:53; Admin Dose 4 MG; Start 05/05/18 at 06:00 Bisacodyl (Dulcolax) 5 mg DAILY PRN PO .CONSTIPATION; Start 05/05/18 at 06:00 Tamsulosin HCl (Flomax) 0.4 mg HS PO Last administered on 05/12/18 20:16; Admin Dose 0.4 MG; Start 05/05/18 at 21:00 Albuterol/ Ipratropium (Duoneb) 3 ml Q4H RESP THERAPY PRN HHN SHORTNESS OF B REATH Last administered on 05/12/18 20:56; Admin Dose 3 ML; Start 05/05/18 at 22:30 Acetaminophen (Tylenol Tab) 650 mg Q6H PRN PO MILD PAIN(1-3)OR ELEVATED TEMP Last administered on 05/12/18 22:52; Admin Dose 650 MG; Start 05/06/18 at 21:30 Benzocaine (Orajel) 1 applic BID MM Last administered on 05/13/18 08:30; Admin Dose 1 APPLIC; Start 05/11/18 at 01:30 Potassium Chloride 40 meq/ Sodium Chloride 1,000 ml @ 100 mls/hr Q10H IV Last administered on 05/13/18 10:14; Admin Dose 100 MLS/HR; Start 05/11/18 at 19:00 Enoxaparin Sodium (Lovenox) 40 mg DAILY SC Last administered on 05/13/18 08: 38; Admin Dose 40 MG; Start 05/13/18 at 09:00 Sodium Chloride (Nacl) 1 gm DAILY PO Last administered on 05/13/18 08:30; Admin Dose 1 GM; Start 05/13/18 at 09:00 Albuterol/ Ipratropium (Duoneb) 3 ml Q4H RESP THERAPY HHN Last administered on 05/13/18 08:46; Admin Dose 3 ML; Start 05/13/18 at 05:00 CHETAN NOVA MD May 13, 2018 12:23
--- NOTE | 2018-05-13 13:43 | CONS ---
Assessment/Plan Assessment/Plan Hospital Course (Demo Recall) No events overnight patient is sleeping looks comfortable no fevers overnight Antimicrobials: Levaquin All cultures remain negative PHYSICAL EXAMINATION: GENERAL: This is a well-nourished, well-developed elderly man who looks comfortable HEENT: Head atraumatic, normocephalic. Sclerae anicteric. NECK: Supple. CHEST: Rise symmetrical. Breath sounds clear, diminished to bases. HEART: S1, S2. ABDOMEN: Soft, bowel tones present. EXTREMITIES: Without cyanosis. DIAGNOSTIC IMPRESSION: 1. S/p sepsis 2. Metastatic colon cancer, status post resection. 3. Status post acute encephalopathy with history of brain mass and status post mass resection. 4. Pneumonitis. 5. Pancytopenia. Plan: Remains stable, continue abx Consultation Date/Type/Reason Admit Date/Time May 05, 2018 at 12:31 Initial Consult Date 05/06/18 Type of Consult id Requesting Provider: TAHIR MCBRIDE Date/Time of Note DATE: 05/13/18 TIME: 13:43 Exam/Review of Systems Exam Vitals Vital Signs Date Temp Pulse Resp B/P (MAP) Pulse Ox O2 O2 Flow FiO2 Time Delivery Rate 05/13/18 75 13:28 05/13/18 98.1 16 148/85 97 Room Air 11:51 (106) 05/13/18 2.0 08:57 05/13/18 26 05:05 Intake and Output 05/12/18 05/12/18 05/13/18 1515:00 23:00 07:00 IntakeIntake Total 1000 ml 600 ml BalanceBalance 1000 ml 600 ml Results Result Diagram: 05/12/18 0608 05/12/18 0608 Medications Medication Current Medications Levothyroxine Sodium (Synthroid) 50 mcg BEFORE BREAKFAST PO Last administered on 05/13/18at 06:22; Admin Dose 50 MCG; Start 05/05/18 at 07:00 Pyridoxine HCl (Vitamin B6) 100 mg DAILY PO Last administered on 05/13/18at 08:30; Admin Dose 100 MG; Start 05/05/18 at 09:00 IV Flush (NS 3 ml) 3 ml PER PROTOCOL IV ; Start 05/05/18 at 06:00 Ondansetron HCl (Zofran Inj) 4 mg Q6H PRN IV NAUSEA/VOMITING Last administered on 05/12/18 20:53; Admin Dose 4 MG; Start 05/05/18 at 06:00 Bisacodyl (Dulcolax) 5 mg DAILY PRN PO .CONSTIPATION; Start 05/05/18 at 06:00 Tamsulosin HCl (Flomax) 0.4 mg HS PO Last administered on 05/12/18 20:16; Admin Dose 0.4 MG; Start 05/05/18 at 21:00 Albuterol/ Ipratropium (Duoneb) 3 ml Q4H RESP THERAPY PRN HHN SHORTNESS OF BREATH Last administered on 05/12/18 20:56; Admin Dose 3 ML; Start 05/05/18 at 22:30 Acetaminophen (Tylenol Tab) 650 mg Q6H PRN PO MILD PAIN(1-3)OR ELEVATED TEMP Last administered on 05/12/18 22:52; Admin Dose 650 MG; Start 05/06/18 at 21:30 Benzocaine (Orajel) 1 applic BID MM Last administered on 05/13/18 08:30; Admin Dose 1 APPLIC; Start 05/11/18 at 01:30 Potassium Chloride 40 meq/ Sodium Chloride 1,000 ml @ 100 mls/hr Q10H IV Last administered on 05/13/18 10:14; Admin Dose 100 MLS/HR; Start 05/11/18 at 19:00 Enoxaparin Sodium (Lovenox) 40 mg DAILY SC Last administered on 05/13/18 08:38; Admin Dose 40 MG; Start 05/13/18 at 09:00 Sodium Chloride (Nacl) 1 gm DAILY PO Last administered on 05/13/18 08:30; Admin Dose 1 GM; Start 05/13/18 at 09:00 Albuterol/ Ipratropium (Duoneb) 3 ml Q4H RESP THERAPY HHN Last administered on 05/13/18 08:46; Admin Dose 3 ML; Start 05/13/18 at 05:00 ALISHA MISHRA NP May 13, 2018 13:43
--- NOTE | 2018-05-13 16:02 | PDOCDIS ---
Discharge Instructions CONDITION [id number] Patient Condition: [id number] Good HOME CARE INSTRUCTIONS: [id number] Diet Instructions: [id number] Regular ACTIVITY: [id number] Activity Restrictions: [id number] No Restrictions FOLLOW UP/APPOINTMENTS Follow-up Plan Follow-up with your PCP and oncologist as scheduled, follow-up with home health ARASELI RUBI May 13, 2018 16:02
--- NOTE | 2018-05-13 16:10 | DS ---
Date/Time of Note Date/Time of Note DATE: 05/13/18 TIME: 16:02 Discharge Summary Admission/Discharge Info Admit Date/Time May 05, 2018 at 12:31 Discharge Date/Time May 13, 2018 Discharge Diagnosis Encephalopathy likely secondary to history of whole brain radiation -Patient does have a history of whole brain radiation over a year ago with gradual decline in mental function, patient became acutely worse after restarting FOLFOX -Patient has no other explanation for his encephalopathy, ammonia level is normal with no evidence of liver disease, no evidence of further infection and MRI brain with no acute findings Sepsis: Resolved - Unclear source but resolved with antibiotics -Status post antibiotics and Tamiflu Colon cancer: - on treatment as outpatient, patient to follow-up with oncologist to discuss further chemotherapy Dysphagia secondary to encephalopathy Patient provided with suctioning machine Hyponatremia: Resolved -Status post salt tabs and normal saline GIACOMO: - Resolved with volume expansion Diarrhea secondary to antibiotics -Antibiotic have been discontinued -C. 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 Patient does have a history of metastatic colon cancer with known metastases to the liver, brain and lung. Patient does have a history of whole brain radiation approximately 2 years ago with gradual decline in functional status over the past several months and acute worsening after recent administration of FOLFOX. Patient had been off systemic chemotherapy for approximately a year but was restarted when PET scan showed possible metastatic lesions in the lung. Patient did have fevers on arrival was treated with a course of antibiotics as well as Tamiflu, fevers resolved and cultures did remain negative. Patient was seen by ID as well as oncology and patient was to follow-up with his outpatient oncologist to discuss further chemotherapy options and whether or not continuation of FOLFOX is indicated considering his declining functional status. The patient's functional status has likely declined secondary to history of whole brain radiation with acute exacerbation due to systemic chemotherapy. Patient was a candidate for [place] [facility] [place] placement but family declined and case making machine operator did arrange for home health with DME's. Patient was stable for DC, on the day of discharge patient's vitals, labs of his exam are stable. Home Meds Reported Medications Levothyroxine Sodium* (Levothyroxine Sodium*) 50 Mcg Tablet, 50 MCG PO BEFORE BREAKFAST, #30 TAB 05/05/18 Biotin (Biotin) 10,000 Mcg Capsule, 69065 MCG PO DAILY, CAP 05/05/18 Calcium Carb/D3/Magnesium/Zinc (Mgskded-Ylz-Afyu-Vit D Tablet) 1 Each Tablet, 1 EACH PO DAILY, TAB 05/05/18 Rosuvastatin Calcium* (Crestor*) 20 Mg Tablet, 20 MG PO QHS, #30 TAB 05/05/18 Omeprazole* (Omeprazole*) 20 Mg Capsule.dr, 20 MG PO DAILY, #30 CAP 05/05/18 Cholecalciferol (Vitamin D3) 5,000 Unit Tablet, 5000 UNIT PO DAILY, TAB 05/05/18 Hydrochlorothiazide* (Hydrochlorothiazide*) 25 Mg Tab, 25 MG PO DAILY, #30 TAB 05/05/18 Pyridoxine Hcl* (Vitamin B-6*) 100 Mg Tablet, 100 MG PO DAILY, TAB 05/05/18 Metoprolol Tartrate* (Lopressor*) 25 Mg Tab, 25 MG PO BID, #60 TAB 05/05/18 Capecitabine (Capecitabine) 500 Mg Tablet, 500 MG PO DAILY, TAB TAKE 3 TABLETS (1500MG) BY MOUTH IN THE MORNIING AND 2 TABLETS (1000MG) IN THE EVENING DAILY FROM FRIDAY TO FRIDAY. 05/05/18 Irinotecan Hcl (CAMPTOSAR) Unknown Strength Vial, IV, VIAL 05/05/18 Bevacizumab* (Avastin*) 25 Mg/Ml Soln, 400 MG IV, EA 05/05/18 Tamsulosin Hcl* (Tamsulosin Hcl*) 0.4 Mg Cap.er.24h, 0.4 MG PO HS, CAP 05/05/18 Chlorpromazine Hcl* (Chlorpromazine Hcl*) 25 Mg Tablet, 25 MG PO TID, TAB 05/05/18 Follow-up Plan Follow-up with your PCP and oncologist as scheduled, follow-up with home health Primary Care Provider Care Physician No Primary Time spent on discharge: > 30 minutes ARAESLI RUBI May 13, 2018 16:10
[2018-05-13] MEDS: TAMSULOSIN (SR) 0.4 MG CAP PO SCH (20:31)
[2018-05-14] VITALS (7 sets, daily range): BP systolic 136–160; BP diastolic 80–98; PULSE 71–82; RESP 16–18
[2018-05-14] MEDS: ALBUTEROL/IPRATROPIUM (NEB) 3 ML AMP HHN SCH ×2 (01:30→05:34)
[2018-05-14] MEDS: LEVOTHYROXINE 50 MCG TAB PO SCH (08:03)
[2018-05-14] MEDS: POTASSIUM CHLORIDE 40 MEQ in SOD CHLORIDE 0.9% 1,000 ML IV SCH (08:03)
[2018-05-14] MEDS: BENZOCAINE 10% 7 GM GEL MM SCH (08:44)
[2018-05-14] MEDS: SODIUM CHLORIDE 1 GM TAB PO SCH (08:44)
[2018-05-14] MEDS: ENOXAPARIN 40 MG/0.4 ML SYG SC SCH (08:47)
[2018-05-14] MEDS: PYRIDOXINE 50 MG TAB PO SCH (08:49)
--- NOTE | 2018-05-14 08:57 | CONS ---
Assessment/Plan Assessment/Plan Assessment/Plan (Daily) 1. 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 Sepsis 3. H/o metastatic colon CA on chemotherapy 4. H/o HTN 5. H/o HL 6. Dizziness 7. Hypokalemia Plan: Na improved to 135 - continue Na chloride tablet 1 gram PO daily d/c plan today will follow up Consultation Date/Type/Reason Admit Date/Time May 05, 2018 at 12:31 Initial Consult Date 05/06/18 Type of Consult NEPHROLOGY Requesting Provider: TAHIR MCBRIDE Date/Time of Note DATE: 05/14/18 TIME: 08:57 Exam/Review of Systems Exam Vitals Vital Signs Date Temp Pulse Resp B/P (MAP) Pulse Ox O2 O2 Flow FiO2 Time Delivery Rate 05/14/18 76 08:34 05/14/18 98.7 16 160/87 98 Room Air 07:36 (111) 05/14/18 21 05:34 05/13/18 2.0 18:13 Intake and Output 05/13/18 05/13/18 05/14/18 1515:00 23:00 07:00 IntakeIntake Total 1600 ml 1600 ml BalanceBalance 1600 ml 1600 ml Results Result Diagram: 05/12/18 0608 05/12/18 0608 Medications Medication Current Medications Levothyroxine Sodium (Synthroid) 50 mcg BEFORE BREAKFAST PO Last administered on 05/14/18at 08:03; Admin Dose 50 MCG; Start 05/05/18 at 07:00 Pyridoxine HCl (Vitamin B6) 100 mg DAILY PO Last administered on 05/14/18at 08:49; Admin Dose 100 MG; Start 05/05/18 at 09:00 IV Flush (NS 3 ml) 3 ml PER PROTOCOL IV ; Start 05/05/18 at 06:00 Ondansetron HCl (Zofran Inj) 4 mg Q6H PRN IV NAUSEA/VOMITING Last administered on 05/12/18at 20:53; Admin Dose 4 MG; Start 05/05/18 at 06:00 Bisacodyl (Dulcolax) 5 mg DAILY PRN PO .CONSTIPATION; Start 05/05/18 at 06:00 Tamsulosin HCl (Flomax) 0.4 mg HS PO Last administered on 05/13/18at 20:31; A dmin Dose 0.4 MG; Start 05/05/18 at 21:00 Albuterol/ Ipratropium (Duoneb) 3 ml Q4H RESP THERAPY PRN HHN SHORTNESS OF BREATH Last administered on 05/12/18 20:56; Admin Dose 3 ML; Start 05/05/18 at 22:30 Acetaminophen (Tylenol Tab) 650 mg Q6H PRN PO MILD PAIN(1-3)OR ELEVATED TEMP Last administered on 05/12/18 22:52; Admin Dose 650 MG; Start 05/06/18 at 21:30 Benzocaine (Orajel) 1 applic BID MM Last administered on 05/14/18 08:44; Admin Dose 1 APPLIC; Start 05/11/18 at 01:30 Potassium Chloride 40 meq/ Sodium Chloride 1,000 ml @ 100 mls/hr Q10H IV Last administered on 05/14/18 08:03; Admin Dose 100 MLS/HR; Start 05/11/18 at 19:00 Enoxaparin Sodium (Lovenox) 40 mg DAILY SC Last administered on 05/14/18 08:47; Admin Dose 40 MG; Start 05/13/18 at 09:00 Sodium Chloride (Nacl) 1 gm DAILY PO Last administered on 05/14/18 08:44; Admin Dose 1 GM; Start 05/13/18 at 09:00 Albuterol/ Ipratropium (Duoneb) 3 ml Q4H RESP THERAPY HHN Last administered on 05/14/18 05:34; Admin Dose 3 ML; Start 05/13/18 at 05:00 CHETAN NOVA MD May 14, 2018 08:57
== END 2018-05-14 10:15 | disposition home health service (06) | DRG 871 ==
LOC: E/R 02:34 → TEL 05:20 → OBSVTOIN 12:31
PROVIDERS: ADMIT Family Medicine; ATTEND Internal Medicine
DX: A41.9 Sepsis, unspecified organism (principal); J18.9 Pneumonia, unspecified organism; D61.810 Antineoplastic chemotherapy induced pancytopenia; C18.9 Malignant neoplasm of colon, unspecified; C78.7 Secondary malignant neoplasm of liver and intrahepatic bile duct; C79.31 Secondary malignant neoplasm of brain; E87.1 Hypo-osmolality and hyponatremia; C78.00 Secondary malignant neoplasm of unspecified lung; N17.9 Acute kidney failure, unspecified; E87.6 Hypokalemia; G93.89 Other specified disorders of brain; R13.19 Other dysphagia; R53.81 Other malaise; R29.810 Facial weakness; I10 Essential (primary) hypertension; E78.5 Hyperlipidemia, unspecified; N40.0 Benign prostatic hyperplasia without lower urinary tract symptoms; D69.6 Thrombocytopenia, unspecified; E03.9 Hypothyroidism, unspecified
CPT/HCPCS: 36415; 36600; 70450; 70551; 71045; 71260; 74177; 80048; 80053; 80202; 81001; 82140; 82550; 82553; 82803; 83036; 83605; 83690; 83735; 84145; 84300; 84443; 84484; 85025; 85610; 85730; 86850; 86900; 86901; 86920; 87040; 87075; 87081; 87086; 93005; 93306; 93970; 94640; 94664; 96360; 97110; 97116; 97162; 97167; 97530; G0378; A4310; C9113; J0131; J1630; J1650; J1885; J1940; J2185; J2405; J2543; J3370; J3475; J3480; J7030; J7040; J7042; J7050; Q9967